=== PATIENT | female | born 1945 | race Caucasian/White ===

== ENCOUNTER 2024-08-09 11:55 | Outpatient (CLI) | payer MEDICARE, SELFPAY ==
--- NOTE | ~2024-08-09 | XR_ITS ---
XR sacrum coccyx min 2V Ordering provider: Belinda Knight, PA History: . Complications due to nervous system device . Comparison: None. FINDINGS: BONES: No acute fracture or dislocation. JOINTS: The sacroiliac joint spaces are normal. Degenerative changes of the spine. Right spinal stimu lator is noted. SOFT TISSUES: Normal. IMPRESSION: No acute osseous abnormality sacrum. Reviewed, dictated and finalized at location A.
--- OUTSIDE RECORDS SUMMARY | 2024-08-09 14:31 | XMS_ITS | Encounter Summary ---
Author Organization [facility] Address [address] [place] [address] Care Team Providers Care Vulnerability Assessment Analyst Name Role Phone Charity Eastman NP Primary Care Provider + Jose Alberto Gaines MD Unavailable [phone] Peña Garza MD Unavailable Boom Durant MD Unavailable [phone] Encounter Details Date Type Department Care Team (Late st Contact Info) Description 03/04/2024 MyC?t Message Enc [facility] Medical [facility] Family and Sports Medicine - [place] [address] [place] [address] Charity Eastman, DIRECTOR DESIGN [address] [place] [address] Discussion of test results on March 02, 2024 Social History Tobacco Use Types Packs/Day Years Used Date Smoking Tobacco: Former Cigarettes 0.5 50 0 05/26/1968 - 05/26/2018 Passive Smoke Exposure: Past Smokeless Tobacco: Never Comments:Former smoker Alcohol Use Standard Drinks/Week Comments Never 0 (1 standard drink = 0.6 oz pur e alcohol) AUDIT-C Answer Date Recorded Frequency of Alcohol Consumption Never 06/01/2018 Average Number of Drinks Not on file 019 Frequency of Binge Drinking Not on file 11/2018 Overall Financial Resource Strain (CARDIA) Answe r Date Recorded How hard is it for you to pa y for the very basics like food, housing, medical care, and heating? Not very hard 08/16/2022 PHQ-2 Answer Date Recorded Patient Health Questionnaire-2 Score 6 04/15/2023 Hunger Vital Sign Answer Date Recorded Within the past 12 months, y ou worried that your food would run out before you got the money to buy more. Never true 08/17/19 23 Within the past 12 months, t he food you bought just didn't last and you didn't have money to get more. Never true 08/16/2022 PRAPARE - Transportation Answer Date Re corded In the past 12 months, has l ack of transportation kept you from medical appointments or from getting medications? No 07/25 In the past 12 months, has l ack of transportation kept you from meetings, work, or from getting things needed for daily living? No 08/16/2022 Housing Stability Vital Sign Answer Martin e Recorded In the last 12 months, was t here a time when you were not able to pay the mortgage or rent on time? No 08/16/2022 In the last 12 months, how many places have you lived? 1 08/16/2022 In the last 12 months, was t here a time when you did not have a steady place to sleep or slept in a fpc (including now)? No 08/16/2022 Comments No Sex and Gender Information Value Date Recorded Sex Assigned at Female 10/09/2022 2:03 PM CDT Legal Sex Female 7:57 PM CDT Gender Identity Female 10/09/2022 2:03 PM CDT Sexual Orientation Straight 10/09/2022 2: 03 PM CDT documented as of this encounter Functional Status * RETIRED Are you deaf or do you have serious difficulty hearing Answer Date of Assessment Author Status No 10/24/2021 8:48 PM CDT Activ e * RETIRED Are you blind or do you have serious difficulty seeing, even when wearing glasses? Answer Date of Assessment Author Status No 10/24/2021 8:48 PM CDT Activ e * Do you have serious difficulty walking or climbing stairs? Answer Date of Assessment Author Status No 10/24/2021 8:48 PM CDT Leigh Wall RN Active * Do you have difficulty dressing or bathing? Answer Date of Assessment Author Status No 10/24/2021 8:48 PM CDT Leigh Wall, RN Active * Because of a physical, mental, or emotional condition, do you have difficulty doing errands alone such as visiting a doctor's office or shopping? Answer Date of Assessment Author Status No 10/24/2021 8:48 PM CDT Leigh Wall RN Active documented as of this encounter Mental Status * Because of a physical, mental, or emotional condition, do you have serious difficulty concentrating, remembering, or making decisions? Answer Entry Date Author Status No 10/24/2021 8:48 PM CDT Leigh Wall RN Active documented in this encounter Progress Notes * Charity Eastman NP - 03/04/2024 1:37 PM CDT Did she see my result note? Ice to neck and rest. documented in this encounter Plan of Treatment Upcoming Encounters Date Type Department Care Team (Late st Contact Info) Description 08/11/2024 10:45 AM CDT Office Visit [facility] Physical Therapy [address] [place] [address] Charity Eastman NP [address] [place] [address] Elizabeth Fernandez, PT 1 [place] [address] 08/12/2024 9:40 AM CDT Office Visit [facility] Medical Group Orthopedic & Sports Medicine - [place] [address] [place] [address] Dominik Lopez MD [address] [place] [address] 08/20/2024 12:15 PM CDT [facility] Visit [facility] [address] [address] Milton Rodriguez MD Three [facility] [address] [place], [place] [address] Marie Victor PA-C 3 [facility], [address] [place], [place] [address] documented as of this encounter Visit Diagnoses Not on filedocumented in this encounter Additional Health Concerns Infection Onset Date Last Indicated Resolved Time COVID-19 Rule Out 05/05/2024 05/05/2024 05/05/2024 11:[address] MECHANIC COVID-19 Rule Out 06/21/2024 06/21/2024 06/21/2024 5:[address] MECHANIC Assessment Noted Time PHQ-9 Depression Total Score: 25 023 12:49 PM CDT documented as of this encounter Care Teams Vulnerability Assessment Analyst Relationship Specialty Start Date End Date Charity Eastman NP [address] [place] [address] PCP - General Nurse Practitioner Family 08/16/21 Jose Alberto Gaines MD [address] [place] [address] ORTHOPAEDIC SURGERY 07/08/22 Peña Garza MD Three [facility]. [place] [address] [place] [address] Referring Physician VASCULAR SURGERY 07/04/22 Boom Durant MD [address] [facility] [place] [address] UROLOGY 08/23/22 documented as of this encounter
--- OUTSIDE RECORDS SUMMARY | 2024-08-09 14:31 | XMS_ITS | Clinical Summary ---
Author Organization [facility] Address [address] [place] [address] Care Team Providers Care Teacher Of The Hearing Impaired Name Role Phone Charity Eastman BULLDOZER MECHANIC-BREAKFAST COOK Primary Care Provider [phone] Source Comments [facility],non-owned Affiliates and Associated Physician Practices is amultiple site organization consisting of ambulatory clinics and hospital sitesin [place], [place], [place] and [place]. This disclosure is being madepursuant to the Care Everywhere program and may not contain all information available regarding this patient. Last updated 18.[facility] Allergies Active Allergy Reactions Criticality Noted Date Comments Bupropion Unknown 11/11/2017 hallucinations Fluoxetine Unknown 11/11/2017 vomiting Sertraline Unknown 11/11/2017 vomiting Varenicline Other 02/08/2014 depression Medications * Be aware that medications may not be up to date on this document. Alwaysverify current medications with the patient. Medication Sig Dispensed Refills Start Date End Date Status venlafaxine XR 24hr (EFFEXOR XR) 150 MG capsule Take 150 mg by mouth once daily 12/03/2018 Active dexmethylphenidate ER 24hr (FOCALIN XR) 30 MG capsule Take 30 mg by mouth once daily 10/15/2018 Active dexmethylphenidate (FOCALIN) 10 MG tablet 1 tablet by mouth in the afternoon (in addition to 30 mg XR in the AM) 10/08/2019 Active ALPRAZolam (XANAX) 0.5 MG tablet Take 0.5 mg by mouth 05/02/2016 Active pravastatin (PRAVACHOL) 20 MG tablet Take 20 mg by mouth at bedtime Active venlafaxine XR 24hr (EFFEXOR XR) 75 MG capsule Take 1 capsule by mouth once daily To take along with 150mg for a total of 225mg 30 capsule 4 11/23/2019 Active Active Problems Problem Noted Date Diagnosed Date Recurrent major depressive disorder 02/15/2020 Abnormal weight gain 05/17/2019 Overweight (BMI 25.0-29.9) 05/17/2019 Other hyperlipidemia 10/01/2018 Intractable migraine without aura and without status migrainosus 08/09/2016 Thyroid nodule 06/24/2016 ADHD (attention deficit hype ractivity disorder), combined type 06/03/2013 Anxiety 03/24/2013 Social History Tobacco Use Types Packs/Day Years Used Date Smoking Tobacco: Never Assessed Sex and Gender Information Value Date Recorded Sex Assigned at Not on file Gender Identity Not on file Sexual Orientation Not on file Last Filed Vital Signs Vital Sign Reading Time Taken Comments Blood Pressure 130/86 08/14/2017 11:32 AM CDT Pulse 88 08/14/2017 11:32 AM CDT Temperature - - Respiratory Rate - - Oxygen Saturation - - Inhaled Oxygen Concentration - - Weight 71.3 kg (157 lb 3.2 oz) 08/14/2017 11:32 AM CDT Height - - Body Mass Index - - Plan of Treatment Health Maintenance Due Date Last Done Comments BONE DENSITY TESTING 1945 HEPATITIS C SCREENING 11/30/1964 DTAP/TDAP/TD VACCINES (1 - Tdap) 1965 PNEUMOCOCCAL VACCINE 50+ (1 of 1 - PCV) 1996 ZOSTER VACCINE (1 of 2) 1996 Respiratory Syncytial Virus (RSV) Vaccine Pt: or over 60 yrs (1 - 1-dose 75+ series) 2021 COVID-19 VACCINE (3 - 2023-2 5 season) 2024 08/18/2020, 07/14/2020 INFLUENZA VACCINE (#1) 2024 DEPRESSION SCREENING 05/26/2024 MEDICARE AWV CALENDAR YEAR 2024 HEPATITIS B VACCINE Aged Out No longe r eligible based on patient's age to complete this topic HIB VACCINE Aged Out No longer eligi ble based on patient's age to complete this topic HPV VACCINE Aged Out No longer eligi ble based on patient's age to complete this topic MENINGOCOCCAL (Group B) VACCINE SHARED DECISION-MAKING Aged Out No longer eligible based on patient's age to complete this topic MENINGOCOCCAL GROUPS A/C/Y/W VACCINE Aged Out No longer eligible b ased on patient's age to complete this topic Care Teams Teacher Of The Hearing Impaired Relationship Specialty Start Date End Date Charity Eastman, BULLDOZER MECHANIC-BREAKFAST COOK [address] [address] PCP - General 05/28/22
--- OUTSIDE RECORDS SUMMARY | 2024-08-09 14:31 | XMS_ITS | Encounter Summary ---
Author Organization [facility] Address [address] [place] [address] Care Team Providers Care Weft Straightener Name Role Phone Charity Eastman NP Primary Care Provider + Jose Alberto Gaines MD Unavailable [phone] Peña Garza MD Unavailable Boom Durant MD Unavailable [phone] Encounter Details Date Type Department Care Team (Late st Contact Info) Description 07/25/2023 MyChart Message Enc [facility] Medical Group Family and Sports Medicine - [place] [address] [place] [address] Charity Eastman, BUSINESS TECHNOLOGY PROFESSOR [address] [place] [address] My test results Social History Tobacco Use Types Packs/Day Years [...] place to sleep or slept in a correction (including now)? No 08/16/2022 Comments No Sex [...] Progress Notes * Charity Eastman NP - 07/28/2023 8:34 AM CST Does not need to do anything if better NDING UROLOGIST documented in this encounter Plan of Treatment Upcoming Encounters Date Type Department Care Team (Late st Contact Info) Description 08/11/2024 10:45 AM CDT Office Visit [facility] Physical Therapy [address] [place] [address] Charity Eastman NP [address] [place] [address] Elizabeth Fernandez, PT 1 [place] [address] 08/12/2024 9:40 AM CDT Office Visit [facility] Medical Group Orthopedic & Sports Medicine - [place] [address] [place] [address] Dominik Lopez MD [address] [place] [address] 08/20/2024 12:15 PM CDT Office Visit [facility] n THREE [address] [address] Milton Rodriguez MD Three [facility] [address] [place] [id number] Marie Victor PA-C 3 [facility], [address] [place] [id number] documented as of this encounter Visit Diagnoses Not on filedocumented in this encounter Additional Health Concerns Infection Onset Date Last Indicated Resolved Time COVID-19 Rule Out 05/05/2024 05/05/2024 05/05/2024 11:08 PM ATTENDING UROLOGIST COVID-19 Rule Out 06/21/2024 06/21/2024 06/21/2024 5:59 PM ATTENDING UROLOGIST Assessment Noted Time PHQ-9 Depression Total Score: 25 023 12:49 PM CDT documented as of this encounter Care Teams Weft Straightener Relationship Specialty Start Date End Date Charity Eastman NP [address] [place] [address] PCP - General Nurse Practitioner Family 08/16/21 Jose Alberto Gaines MD [address] [place] [address] ORTHOPAEDIC SURGERY 07/08/22 Peña Garza MD [facility]. [place] [address] [place] [address] Referring Physician VASCULAR SURGERY 07/04/22 Boom Durant MD [address] [place] [address]. [place] [address] UROLOGY 08/23/22 documented as of this encounter
--- OUTSIDE RECORDS SUMMARY | 2024-08-09 14:31 | XMS_ITS | Patient Health Summary ---
Author Organization [facility] Address [address] [facility] [place] [address] Care Team Providers Care Multimedia Editor Name Role Phone Charity Eastman AUTOMOTIVE PAINTER-MEDICAL COLLECTIONS REPRESENTATIVE Primary Care Provider [phone] Note from [facility],non-owned Affiliates and Associated Physician Practices is amultiple site organization consisting of ambulatory clinics and hospital sitesin [place], [place], [place] and [place]. This disclosure is being madepursuant to the Care Everywhere program and may not contain all information available regarding this patient. Last updated 18.[facility] Allergies * Bupropion(Unknown) * Fluoxetine(Unknown) * Sertraline(Unknown) * Varenicline(Other) Medications * Be aware that medications may not be up to date on this document. Alwaysverify current medications with the patient. * venlafaxine XR 24hr (EFFEXOR XR) 150 MG capsule(Started 12/03/2018) Take 150 mg by mouth once daily * dexmethylphenidate ER 24hr (FOCALIN XR) 30 MG capsule(Started 10/15/2018) Take 30 mg by mouth once daily * dexmethylphenidate (FOCALIN) 10 MG tablet(Started 10/08/2019) 1 tablet by mouth in the afternoon (in addition to 30 mg XR in the AM) * ALPRAZolam (XANAX) 0.5 MG tablet(Started 05/02/2016) Take 0.5 mg by mouth * pravastatin (PRAVACHOL) 20 MG tablet Take 20 mg by mouth at bedtime * venlafaxine XR 24hr (EFFEXOR XR) 75 MG capsule(Started 11/23/2019) Take 1 capsule by mouth once daily To take along with 150mg for a total of 225mg 4 refills by 11/22/2020 Active Problems Problem Noted Date Diagnosed Date [...] - - Body Mass Index - - Procedures * DERMATOPATHOLOGY(Performed 10/28/2017) Results * DERMATOPATHOLOGY (10/28/2017 12:00 AM CDT) Case Report Dermatopathology Report Case: [id number] Authorizing Provider: Elana Echols MD Collected: 10/28/2017 12:00 AM Pathologist: Sandra Agarwal MD Received: 10/29/2017 06:18 AM Specimens: A) - Skin, left shoulder B) - Skin, back 8 5:44 PM CDT DERMATOPATHOLOGY LABORATORY Final Diagnosis Specimen A. 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 SKIN, back: PIGMENTED SEBORRHEIC KERATOSIS (L82.1) 8 5:44 PM CDT DERMATOPATHOLOGY LABORATORY Clinical History A-B: Irritated SK 8 5:44 PM CDT DERMATOPATHOLOGY LABORATORY Gross Description Specimen A: Received is one formalin filled container labeled with the patient's name and designated left shoulder. The specimen consists of a shave biopsy measuring 14g30v2 mm. Jar 0. Specimen B: Received is one formalin filled container labeled with the patient's name and designated back. The specimen consists of a shave biopsy measuring 6x4x1 mm. Jar 0. 5:44 PM CDT DERMATOPATHOLOGY LABORATORY Microscopic Description Specimen A. SKIN, left shoulder: Sections show an acanthotic lesion composed of relatively uniform keratinocytes. There is hyperkeratosis and pseudo horn cysts formation. Specimen B. SKIN, back: Sections show an acanthotic lesion composed of relatively uniform keratinocytes. There is hyperkeratosis and pseudo horn cysts. Pigment is present in the keratinocytes composing this tumor. 8 5:44 PM T DERMATOPATHOLOGY LABORATORY Disclaimer An external and internal positive and negative controls are appropriate for the histochemical, immunohistochemical and immunofluorescence stain(s) in this case (if any), except where stated explicitly. The performance characteristics of the stain(s) cited in this report were developed and its performance characteristic determined by the Dermatopathology Laboratory at [facility]. These tests need not be, and therefore are not, approved by the [place] Food and Drug Administration. The tests are used for clinical purposes. Billing Codes Specimen Charges Stain Charges 67937 08763 1 1 8 5:44 PM CDT DERMATOPATHOLOGY LABORATORY Embedded Images 8 5:44 PM CDT DERMATOPATHOLOGY LABORATORY Pathology/Cytology TISSUE SPECIMEN FROM SKIN / Unknown 10/28/2017 10/29/2017 6:18 AM CDT Miscellaneous samples (specimen) TISSUE SPECIMEN FROM SKIN / Unknown 10/28/2017 10/29/2017 6:18 AM CDT Elana Echosl MD LAB - PATHOLOGY/CYTO LOGY ORDERABLES DERMATOPATHOLOGY LABORATORY [facility] [place] [facility] - Department of Dermatology [address] [facility], [address]th [address] [place], [place] [address] [phone] Care Teams Multimedia Editor Relationship Specialty Start Date End Date Charity Eastman, AUTOMOTIVE PAINTER-MEDICAL COLLECTIONS REPRESENTATIVE [address] [place] [address] PCP - General 05/28/22
--- OUTSIDE RECORDS SUMMARY | 2024-08-09 14:31 | XMS_ITS | Clinical Summary ---
Author Organization [facility] Address [address] [place] [address] Care Team Providers Care Assistant Analyst Name Role Phone Charity Eastman NP Primary Care Provider [phone] Jose Alberto Gaines MD Unavailable [phone] Peña Garza MD Unavailable Boom Durant MD Unavailable [phone] Allergies Active Allergy Reactions Criticality Noted Date Comments Bupropion Unknown 11/11/2017 hallucinations Fluoxetine Unknown 11/11/2017 vomiting Oxycodone-Acetaminophen Other (see comment) Medium 06/2024 Confusion. Sertraline Unknown 11/11/2017 vomiting Medications Cyanocobalamin (B-12) 2000 MCG Tab Take 2 tablets by mouth. Active vitamin E 100 UNIT capsule Take 2 capsules (200 Units total) by mouth daily. Active omeprazole (PRILOSEC) 20 MG capsuleIndications :Projectile vomiting without nausea Take 1 capsule (20 mg total) by mouth 2 (two) times a day. 180 capsule 3 08/04/19 24 Active Vitamin D3 (CHOLECALCIFEROL) 50 mcg tablet Take 1 tablet (50 mcg total) by mouth daily. Active atenolol (TENORMIN) 50 MG tabletIndications: Primary hypertension Take 1 tablet (50 mg total) by mouth daily. 90 tablet 3 02/11/20 24 Active vitamin A 3 MG (90453 UT) capsule Take 1 capsule (3 mg total) by mouth daily. Active sucralfate (CARAFATE) 1 G tabletIndications: Projectile vomiting with nausea Take 1 tablet (1 g total) by mouth 4 (four) times daily before meals and nightly. 120 tablet 05/07/20 24 Active aspirin EC (ECOTRIN) 81 MG tablet Take 1 tablet (81 mg total) by mouth daily. 06/08/19 25 Active rosuvastatin (CRESTOR) 10 MG tablet Take 1 tablet (10 mg total) by mouth nightly at bedtime. 30 tablet 3 06/08/19 25 Active naloxone (NARCAN) 4 MG/0.1ML nasal spray 1 spray by Nasal route as needed for Opioid reversal. may repeat every 2 to 3 minutes in alternating nostrils until medical assistance becomes available 1 each 06/18/19 25 026 Active fish oil (OMEGA-3 FATTY ACID) 1000 MG Cap capsule Take 1 capsule (1,000 mg total) by mouth 2 (two) times daily. Active ALPRAZolam (XANAX) 0.5 MG tabletIndications: Anxiety TAKE 1 TABLET BY MOUTH TWICE DAILY NEEDED FOR SLEEP OR ANXIETY 60 tablet 07/09/19 25 Active venlafaxine XR (EFFEXOR-XR) 75 MG 24 hr capsuleIndications :Mild episode of recurrent major depressive disorder Take 1 tablet daily along with 150mg tablet for a total of 225mg 30 capsule 5 07/09/19 25 Active venlafaxine XR (EFFEXOR-XR) 150 MG 24 hr capsuleIndications :Mild episode of recurrent major depressive disorder Take 1 tablet daily along with 75mg tablet for a total of 225mg. 30 capsule 5 07/09/19 25 Active meclizine (ANTIVERT) 12.5 MG tabletIndications: Vertigo Take 1 tablet (12.5 mg total) by mouth 3 (three) times daily as needed. 90 tablet 1 07/12/19 25 Active ondansetron (ZOFRAN-ODT) 4 MG disintegrating tabletIndications: Nausea Take 1 tablet (4 mg total) by mouth every 8 (eight) hours as needed for Nausea. 20 tablet 1 07/12/19 25 Active amphetamine-dextro amphetamine (ADDERALL) 20 MG tabletIndications: ADHD (attention deficit hyperactivity disorder), combined type Take 1 tablet (20 mg total) by mouth 2 (two) times daily. 60 tablet 07/14/19 25 Active HYDROcodone-acetam inophen (NORCO) 5-325 MG tablet Take 1 tablet by mouth every 6 (six) hours as needed for Pain. 025 Discontin ued(Thera py completed ) dexmethylphenidate (FOCALIN) 10 MG Tab tabletIndications: ADHD (attention deficit hyperactivity disorder), combined type Take 1 tablet (10 mg total) by mouth 3 (three) times daily. 90 tablet 07/09/19 25 025 Discontin ued(Alter aura therapy) meclizine (ANTIVERT) 12.5 MG tablet 07/11/19 25 025 Discontin ued(Reord er) amphetamine-dextro amphetamine (ADDERALL) 20 MG tabletIndications: ADHD (attention deficit hyperactivity disorder), combined type Take 1 tablet (20 mg total) by mouth daily. 60 tablet 07/12/19 25 025 Discontin ued(Reord er) Active Problems Problem Noted Date Diagnosed Date Physical deconditioning 06/24/2024 AMS (altered mental status) 06/21/2024 Other closed intra-articular fracture of distal end of left radius, initial encounter 06/14/2024 Other closed fracture of dis nina end of left ulna, initial encounter 06/14/2024 Severe episode of recurrent major depressive disorder, without psychotic features ([facility]) 02/11/2024 Gastroparesis 07/10/2023 Vomiting without nausea, unspecified vomiting ty pe 07/10/2023 Gastroesophageal reflux dise ase, unspecified whether esophagitis present 07/10/2023 Pain in both lower extremities 07/04/2022 Decreased GFR 11/12/2021 Elevated blood pressure reading 11/12/2021 Pre-diabetes 11/12/2021 Weakness 10/24/2021 BMI 27.0-27.9,adult 05/17/2019 Other hyperlipidemia 10/01/2018 Chronic maxillary sinusitis 05/14/2017 Cervicalgia 08/09/2016 ADHD (attention deficit hype ractivity disorder), combined type 06/03/2013 Depression with anxiety 03/24/2013 Osteopenia 03/24/2013 Resolved Problems Problem Noted Date Diagnosed Date Resolved Date Care Management 11/06/2021 01/17/2023 Closed fracture of shaft of left humerus 04/26/2021 08/21/2021 Overview (08/21/2021): Added automatically from request for surgery [id number] Recurrent major depressive disorder 02/15/2020 08/21/2021 Abnormal weight gain 05/17/2019 022 Overweight with body mass in dex (BMI) 25.0-29.9 05/17/2019 08/21/2021 Lower urinary tract symptoms (LUTS) 06/01/2018 06/07/2024 Microscopic hematuria 06/01/20182023 Epicondylitis, lateral (tennis elbow) 01/30/2018 08/21/2021 Hematuria 01/30/2018 02/11/2024 Vomiting 01/30/2018 08/21/2021 Smoker 03/28/2017 08/21/2021 Right-sided muscle weakness 11/19/2016 08/21/2021 Intractable migraine without aura and without status migrainosus 08/09/2016 08/21/2021 Thyroid nodule 06/24/2016 08/21/2021 Attention deficit disorder o f adult with hyperactivity 12/25/2015 08/21/2021 Benign essential hypertension 11/24/2015 08/21/2021 Anxiety 03/24/2013 02/11/2024 Encounter for preventive health examination 03/24/2013 02/04/2020 Visit for screening mammogram 03/24/2013 02/04/2020 Encounters Date Type Department Care Team Description 08/03/2024 MyChart Message Enc [facility] [place] [address] [place] [address] Charity Eastman NP Check on symptoms 08/03/2024 MyChart Message Enc [facility] [place] [address] [place] [address] [facility] Provider PT Referral 08/03/2024 Telephone [facility] [place] [address] [place] [address] Dominik Lopez MD Referral 07/29/2024 8:26 AM BILLING AUDITOR - 07/29/2024 11:59 PM BILLING AUDITOR Hospital Encounter [facility] Non [place]vasive [place] [address] Milton Rodriguez MD Discharge Disposition: Home or Self Care (Routine Discharge) 07/29/2024 Travel 07/19/2024 11:20 AM BILLING AUDITOR Office Visit [facility] [address] [place] [phone] Charity Eastman NP Follow Up (F/U on dizziness. Lethargic- no energy. Nauseous and dizzy when she bends over. States her legs were blue on Friday when she took a shower. ); Referral (Physical Therapy- no strength in hips/legs. Occupational Therapy- states Dr. Lopez suggested this.) 07/19/2024 Travel 07/15/2024 9:00 AM BILLING AUDITOR Office Visit [facility] Orthopedic [address] [place] [address] Dominik Lopez MD Postop Followup (Left distal radius fx orif sx 06/18/24) 07/15/2024 Travel 07/12/2024 11:00 AM BILLING AUDITOR Office Visit [facility] [address] [place] [address] Charity Eastman NP Follow Up ([facility] f/u on confusion and LT. Wrist fracture. Was d/c to [facility] for rehab. Not sleeping well or eating much. ); Dizziness (Almost fell the other day bc she was so dizzy. ); Vomiting; Medication (Discuss a different ADHD medication. Also, vertigo and nausea meds. Taking Atenolol at night. ) 07/12/2024 Travel 07/09/2024 Telephone [facility] [address] [place] [address] Charity Eastman PUMP MACHINE OPERATOR Refill Request 07/09/2024 Orders Only [facility] [address] [place] [address] Dominik Lopez MD 07/07/2024 Hospital Follow-up Call [facility] [address] [place] [address] Hilda Sawyer LPN Follow Up Call ([facility] 06/24-06/28/24) 07/01/2024 9:00 AM BILLING AUDITOR Office Visit [facility] Medicine [facility] [address] [place] [address] Dominik Lopez MD Postop Followup ( Left distal radius ulnar fx orif sx 06/18/24) 07/01/2024 Travel 06/30/2024 Telephone [facility] Med/Surg [address] [place] [address] Cee Rodas RN Follow Up Call (Attempted to call pt back regarding medications that were left at the hospital. No answer. LM) 06/29/2024 Orders Only [facility] Medicine [facility] [address] [place] [address] Dominik Lopez MD 06/24/2024 2:52 PM BILLING AUDITOR - 06/28/2024 4:10 PM BILLING AUDITOR Hospital Encounter [facility] Med/Surg [address] [place] [address] Eddie Ibarra MD Discharge Disposition: Home or Self Care (Routine Discharge) 06/24/2024 Travel 06/22/2024 Telephone [facility] [address] [place] [address] Michelle Alejandre, pickers material handlers (Swing bed referral to [facility] from [facility]/Swing bed referral to [facility] from [facility] on ) 06/21/2024 4:45 PM BILLING AUDITOR - 06/24/2024 1:55 PM BILLING AUDITOR Emergency [facility] [place] [address] Celeste Villalobos MD Elayyan, MD Jayne Arshad Dominique C, MD Lamonica, Kandace C, MD Shortness Of Breath Discharge Disposition: Swing Bed 06/21/2024 3:40 PM BILLING AUDITOR Office Visit [facility] Sports [facility] [address] [place] [address] Charity Eastman NP Dizziness (SOB at times. Believes it could be from Oxy that she is taking from her wrist fracture. Has rods and pins in it- having a f/u with surgeon on 06/24/24. Hasn't been sleeping. Last Percocet was Friday evening at 11pm. Effect from anesthesia ? After sleep/naps she wakes up breathing abnormal and scared. Maeve is with her today- a longtime friend. Pt. States she has only had 3 puffs of a cigarette. Friday she had a total of 3 percocets all together. They have destroyed the rest of them. Has not been taki); Other (Ng Hydrocodone. Discuss medications. She had atenolol, asa 81mg, Prilosec, effexor, xanax and zofran today. ) 06/21/2024 Travel 06/21/2024 Telephone [facility] Sports [facility] [place] [address] [place] [address] Charity Eastman PUMP MACHINE OPERATOR Advice 06/19/2024 10:40 AM BILLING AUDITOR - 06/19/2024 11:40 AM BILLING AUDITOR Emergency [facility] [place] [address] Aranza Dean PA Medical Screening; Surgery Follow Up Discharge Disposition: Home or Self Care (Routine Discharge) 06/19/2024 Travel 06/18/2024 1:40 PM BILLING AUDITOR - 06/18/2024 3:35 PM BILLING AUDITOR Surgery [facility] [place] [address] Dominik Lopez MD left distal radius fracture open reduction internal fixation with possible open reduction internal fixation of ulnar fracture and possible placement of external fixation 06/18/2024 12:57 PM BILLING AUDITOR Anesthesia Event [facility] [place] [address] Thee Lopez DO Jarvis, Brittany L, TORCH STRAIGHTENER 06/18/2024 9:20 AM BILLING AUDITOR - 06/18/2024 11:59 PM BILLING AUDITOR Hospital Encounter [facility] [place] [address] Dominik Lopez MD Discharge Disposition: Home or Self Care (Routine Discharge) 06/18/2024 9:15 AM BILLING AUDITOR - 06/18/2024 4:30 PM BILLING AUDITOR Hospital Encounter [facility] [place] [address] Dominik Lopez MD Discharge Disposition: Home or Self Care (Routine Discharge) 06/18/2024 Travel 06/17/2024 Telephone [facility] Care [address] [place] [id number] Charity Eastman, PUMP MACHINE OPERATOR Advise 06/15/2024 Telephone [facility] on THREE [address] [address] Milton Rodriguez MD Surgical Clearance 06/14/2024 9:20 AM BILLING AUDITOR Office Visit [facility] [address] [place] [address] Dominik Lopez MD New Patient (Left distal radius fx) 06/14/2024 Prep for Procedure [facility] [address] [place] [address] Dominik Lopez MD 06/14/2024 Telephone [facility] [place] [address] [place] [address] Charity Eastman, PUMP MACHINE OPERATOR Other 06/14/2024 Travel 06/11/2024 Telephone [facility] [address] [facility], [address] [place] [phone] Favian Quiñones MD Schedule Test 06/11/2024 Telephone [facility] [address] [place] [phone] [phone] Charity Eastman, PUMP MACHINE OPERATOR Referral 06/10/2024 Telephone [facility] [address] [place] [address] Dominik Lopez MD Appointment Request 06/09/2024 5:50 PM BILLING AUDITOR - 06/09/2024 10:16 PM BILLING AUDITOR Emergency [facility] [place] [address] Aranza Dean PA Fall Discharge Disposition: Home or Self Care (Routine Discharge) 06/09/2024 Travel 06/08/2024 11:15 AM BILLING AUDITOR Office Visit [facility] on [address] [address] Milton Rodriguez MD Consult (New patient consult ) 06/08/2024 Travel 06/03/2024 Telephone [facility] [address] [place] [address] [phone] Charity Eastman PUMP MACHINE OPERATOR Medication Information 06/03/2024 Telephone [facility] [address] [place] [address] Charity Eastman NP Medication Problem from Last 3 Months Immunizations Name Administration Dates Next Due Fluzone High Dose (IIV, triv alent, 0.5mL) 03/08/2024 Fluzone High Dose - >Age 65 (Prefilled Syringe) 03/28/2023,06/28/2022(Deferred: Patient Refused) PFIZER COVID-19 (ORIGINAL FORMULATION, PURPLE CAP) mRNA, LNP-S, PF, 30 MCG/0.3 ML DOSE 08/18/2020,07/14/2020 Pneumococcal (Prevnar 13) 01/07/2021,05/12/2019 Pneumococcal (Prevnar 20) 08/15/2022 Shingrix 01/07/2021 Family History Medical History Relation Comments Arthritis Daughter Adopted at , because she might be the natural child of my ex Depression Father Cancer Mother Smoker, bronchia l Depression Sister Compulsive disor jossue Mental Health Sister Depression compu lsive disorder Stent Cardiac Sister Asthma Son Bith defect - Ex strophy of the urinary bladdet Defects Son Temitope White Relation Status Comments Daughter Father Mother Sister Alive Son Social History Tobacco Use Types Packs/Day Years Used Date Smoking Tobacco: Some Days Cigarettes 0.5 50 Started: 05/26/1968; Last attempted to quit: 05/26/2018 Passive Smoke Exposure: Past Smokeless Tobacco: Never Tobacco Cessation:Ready to Q uit: No; Counseling Given: Yes Comments: Alcohol Use Standard Drinks/Week Comments Never 0 (1 standard drink = 0.6 oz pur e alcohol) [facility] [employer] Answer Date Recorded In the past 12 months has e [employer], gas, oil, or water valuescope threatened to shut off services in your home? No 06/22/2024 Humiliation, Afraid, Rape, and Kick questionnair e Answer Date Recorded Within the last year, have y ou been afraid of your partner or ex-partner? No 06/22/2024 Within the last year, have y ou been humiliated or emotionally abused in other ways by your partner or ex-partner? No Within the last year, have y ou been kicked, hit, slapped, or otherwise physically hurt by your partner or ex-partner? No 06/22/2024 Within the last year, have y ou been raped or forced to have any kind of sexual activity by your partner or ex-partner? No 06/22/2024 AUDIT-C Answer Date Recorded Frequency of Alcohol Consumption Never 06/01/2018 Average Number of Drinks Not on file 019 Frequency of Binge Drinking Not on file 11/2018 Overall Financial Resource Strain (CARDIA) Answe r Date Recorded How hard is it for you to pa y for the very basics like food, housing, medical care, and heating? Not hard at all 06/22/2024 PHQ-2 Answer Date Recorded Patient Health Questionnaire-2 Score 4 06/14/2024 Hunger Vital Sign Answer Date Recorded Within the past 12 months, y ou worried that your food would run out before you got the money to buy more. Never true 06/22/19 25 Within the past 12 months, t he food you bought just didn't last and you didn't have money to get more. Never true 06/22/2024 PRAPARE - Transportation Answer Date Re corded In the past 12 months, has l ack of transportation kept you from medical appointments or from getting medications? No 05/27 In the past 12 months, has l ack of transportation kept you from meetings, work, or from getting things needed for daily living? No 06/22/2024 Housing Stability Vital Sign Answer Martin e [...] place to sleep or slept in a halfway (including now)? No 08/16/2022 Housing Stability Vital Sign Answer Martin e Recorded In the last 12 months, was t here a time when you were not able to pay the mortgage or rent on time? No 06/22/2024 In the past 12 months, how m any times have you moved where you were living? 0 06/22/2024 At any time in the past 12 m [facility], were you homeless or living in a halfway (including now)? No 06/22/2024 Comments No Sex and Gender Information Value Date Recorded Sex Assigned at Female 10/09/2022 2:03 PM CDT Legal Sex Female 7:57 PM CDT Gender Identity Female 10/09/2022 2:03 PM CDT Sexual Orientation Straight 10/09/2022 2: 03 PM CDT Last Filed Vital Signs Vital Sign Reading Time Taken Comments Blood Pressure 135/75 07/19/2024 1:21 PM BILLING AUDITOR Pulse 69 07/19/2024 11:34 AM BILLING AUDITOR Temperature 36.7 C (98 F) 07/19/2024 11:34 AM BILLING AUDITOR Respiratory Rate 18 07/19/2024 11:34 AM BILLING AUDITOR Oxygen Saturation 98% 07/19/2024 11:34 AM BILLING AUDITOR Inhaled Oxygen Concentration - - Weight 70.4 kg (155 lb 3.2 oz) 07/19/2024 11:34 AM BILLING AUDITOR Height 160 cm (5' 3 ) 07/19/2024 11:34 AM BILLING AUDITOR Body Mass Index 27.49 07/19/2024 11:34 AM BILLING AUDITOR Plan of Treatment Upcoming Encounters Date Type Department Care Team (Late st Contact Info) Description 08/11/2024 10:45 AM CDT Office Visit [facility] Physical Therapy [address] [place] [address] Charity Eastman, PUMP MACHINE OPERATOR [address] [place] [address] Elizabeth Fernandez, PT [address] [place] [address] 08/12/2024 9:40 AM CDT Office Visit [facility] Orth[facility] - [place] [address] [place] [address] Dominik oLpez MD [address] [place] [address] 08/20/2024 12:15 PM CDT Office Visit [facility] [place] [address] [place], [place] [address] Milton Rodriguez MD Three [facility], [address] [place], [place] [address] Marie Victor PA-C [address] [facility], [address] [place], [place] [id number] Health Maintenance Due Date Last Done Comments Kidney Health Evaluation 1945 Diabetes: Retinopathy Eye Exam 1964 DTaP, Tdap and Td Vaccines (1 - Tdap) 1965 Zoster Vaccines (2 of 2) 03/04/2021 01/07/2021 RSV Immunization or 60+ Years (1 - 1-dose 75+ series) 2021 COVID-19 Vaccine (3 - season) 2024 08/18/2020, 07/14/2020 Hemoglobin A1C 12/20/2024 06/22/2024, 03/27, 08/21/2022, Additional history exists Lung Cancer Screening 03/08/2025 03/08/2024 Annual Medicare Wellness Visit 03/15/2025 Postponed from 12/06/2011 (Patient Refused) Lipid Panel 06/22/2025 06/22/2024, 07/25, 10/25/2021, Additional history exists Colorectal Cancer Screening Colonoscopy (10 Years) Discontinued 11/16/2018 Hepatitis C Completed 08/21/2021 Pneumococcal Vaccine: 65+ Years Completed 08/15/2022, 01/07/2021, 05/12/2019 Dexa Scan (General) Completed 03/02/2024, 02/06/2021, 02/06/2021, Additional history exists Influenza Adult Completed 03/08/2024, 03/28/2023 PHQ-2 (Physician Shubuta) Completed 06/14/2024 Meningococcal B Vaccine Aged Out No l onger eligible based on patient's age to complete this topic Meningococcal Vaccine Aged Out No albaro allyn eligible based on patient's age to complete this topic RSV Immunizations Under 20 Months Aged Out No longer eligible based on patient's age to complete this topic Goals Goal Patient Goal Type Associated Problems Recent Progress Patient-Stated? Author Health - patient able to perform ADLs independently Lifestyle No Aretha Olmstead, RN Patient will return to prior living situation and remain independent in ADLs upon discharge from hospital Lifestyle No Sameera Farnsworth, RN Medical Devices Implanted Type Area Microsoft Net Developer Device Identifier Shelf Expiration Date Model / Serial / Lot Graft Bone Allosource Canc Crushed Fd 15ml - [id number] Implanted:Qty: 1 on 06/18/2024 by Dominik Lopez MD at [facility] Bone Left: Wrist [employer]OSOURCE [id number] 10/30/2027 [id number] / [id number] / Stimulator Lead Implant-08/28/19 Implanted:Qty: 1 on 08/28/2023 Lead Implant Sacrum [employer] [id number] / [id number] / Plate Synthes 2.4 Va-Lcp Vlr Dist Radius 6h Hd/3h Shaft Left - [id number] Implanted:Qty: 1 on 06/18/2024 by Dominik Lopez MD at [facility] Plate Left: Wrist SYNTHES 02.111.631 / / Screw Synthes 2.4 Locking Stardrive 18mm - [id number] Implanted:Qty: 4 on 06/18/2024 by Dominik Lopez MD at [facility] Screw Left: Wrist SYNTHES 02.210.118 / / Screw Synthes 2.4 Locking Stardrive 12mm - [id number] Implanted:Qty: 2 on 06/18/2024 by Dominik Lopez MD at [facility] Screw Left: Wrist SYNTHES 02.210.112 / / Screw Synthes 2.4 Locking Stardrive 22mm - [id number] Implanted:Qty: 1 on 06/18/2024 by Dominik Lopez MD at [facility] Screw Left: Wrist SYNTHES .210.122 / / Screw Synthes 2.4 Cortical Self Tap 12mm - [id number] Implanted:Qty: 1 on 06/18/2024 by Dominik Lopez MD at [facility] Screw Left: Wrist IBUonline ED 201.762 / / Stimulator Implant-08/28/19 Implanted:Qty: 1 on 08/28/2023 Stimulator Implant Pelvis [employer] [id number] / [id number] / Description:MR CONDITIONAL A T 1.5 T OR 3 T, NEED REMOTE TO VERIFY FULL BODY ELIGIBLE AND TURN OFF STIMULATION, FOLLOW SCAN CONDITIONS FOR SCANNER AND BODY PART BEING SCANNED (IN MRI TECHNICAL MANUAL) Wire Kaz .062 X 9 - [id number] Implanted:Qty: 1 on 06/18/2024 by Dominik Lopez MD at [facility] Wire Left: Wrist [employer] 1600-962NS / / Wire Fixation Kaz Stainless Steel L9 In Od.045 In 2 Tr - [id number] Implanted:Qty: 1 on 06/18/2024 by Dominik Lopez MD at [facility] Wire Left: Wrist [employer] 1600-945NS / / Wire Fixation Kaz Stainless Steel L9 In Od.054 In 2 Tr - [id number] Implanted:Qty: 1 on 06/18/2024 by Dominik Lopez MD at [facility] Wire Left: Wrist [employer] 1600-954NS / / Procedures Procedure Name Priority Date/Time Associated Diagnosis Comments NM EXER NUC STRESS TEST 1 DAY W TRACING Routine 07/29/2024 2:44 PM BILLING AUDITOR CAD in [place] artery Chest pain, unspecified USE ECHOCARDIOGRAM W CON Routine 07/29/2024 9:21 AM BILLING AUDITOR CAD in [place] artery Chest pain, unspecified CARDIOLOGY STRESS TEST ONLY, EXERCISE Routine 07/29/2024 8:27 AM BILLING AUDITOR CAD in [place] artery Chest pain, unspecified OXR LT WRIST M3V Routine 07/15/2024 9:21 AM BILLING AUDITOR Other closed intra-articular fracture of distal end of left radius, initial encounter OXR LT WRIST M3V Routine 07/01/2024 9:10 AM BILLING AUDITOR Other closed intra-articular fracture of distal end of left radius, initial encounter CBC W/DIFF AUTOMATED Routine 06/25/2024 9:24 AM BILLING AUDITOR BASIC METABOLIC PANEL Routine 06/25/2024 9:24 AM BILLING AUDITOR CBC W/DIFF AUTOMATED Routine 06/24/2024 5:16 AM BILLING AUDITOR BASIC METABOLIC PANEL Routine 06/24/2024 5:16 AM BILLING AUDITOR XR WRIST LT 2V Today 06/23/2024 1:37 PM BILLING AUDITOR BASIC METABOLIC PANEL Routine 06/23/2024 6:39 AM BILLING AUDITOR CBC W/DIFF AUTOMATED Routine 06/23/2024 6:39 AM BILLING AUDITOR THYROXINE, FREE (FT4) Routine 06/22/2024 2:52 PM BILLING AUDITOR EEG ROUTINE STAT 06/22/2024 1:56 PM BILLING AUDITOR HC URINALYSIS AUTO W/O MICRO STAT 06/22/2024 11:55 AM BILLING AUDITOR LIPID PANEL Routine 06/22/2024 6:46 AM BILLING AUDITOR BASIC METABOLIC PANEL Routine 06/22/2024 6:46 AM BILLING AUDITOR THYROID STIM HORMONE TSH Routine 06/22/2024 6:46 AM BILLING AUDITOR HEMOGLOBIN, GLYCOSYLATED Routine 06/22/2024 6:46 AM BILLING AUDITOR MAGNESIUM Routine 06/22/2024 6:46 AM BILLING AUDITOR PROTHROMBIN TIME, VENOUS Routine 06/22/2024 6:46 AM BILLING AUDITOR CBC W/DIFF AUTOMATED Routine 06/22/2024 6:46 AM BILLING AUDITOR ECG 12-LEAD STAT 06/22/2024 2:[address] HEAD WO CON STAT 06/21/2024 7:19 PM BILLING AUDITOR ECG 12-LEAD Routine 06/21/2024 6:15 PM BILLING AUDITOR XR CHEST PORTABLE STAT 06/21/2024 5:5 7 PM BILLING AUDITOR INFLUENZA A & B STAT 06/21/2024 5:36 PM BILLING AUDITOR CORONAVIRUS (COVID 19) STAT 06/21/2024 5:36 PM BILLING AUDITOR TROPONIN, QUANT STAT 06/21/2024 5:30 PM BILLING AUDITOR COMPREHENSIVE METABOLIC PANEL STAT 06/21/2024 5:30 PM BILLING AUDITOR CBC W/DIFF AUTOMATED STAT 06/21/2024 5:30 PM BILLING AUDITOR SURG XR WRIST LT 2V Routine 06/18/2024 3 :14 PM BILLING AUDITOR OPTX DSTL RADL I-ARTIC FX/EPIPHYSL SEP 3+ FRAG 06/18/2024 12:57 PM BILLING AUDITOR Other closed intra-articular fracture of distal end of left radius, initial encounter Other closed fracture of distal end of left ulna, initial encounter Case Notes SCHED BY JANEE 06/14/2024 LCS PHONE ASSESS FL AN PERIPHERAL BLOCK SINGLE-SHOT Routine 06/18/2024 11:56 AM BILLING AUDITOR US GD NDL PLACEMENT ANES Today 06/18/2024 9:20 AM BILLING AUDITOR ORTHOPEDIC INJURY TREATMENT Routine 06/10/2024 12:10 AM BILLING AUDITOR XR WRIST LT 2V STAT 06/09/2024 8:42 PM BILLING AUDITOR PROCEDURAL SEDATION Routine 06/09/2024 7 :[address] CERV SPINE WO CON STAT 06/09/2024 7:[address] HEAD WO CON STAT 06/09/2024 7:18 PM BILLING AUDITOR XR KNEE RT 2V STAT 06/09/2024 5:54 PM BILLING AUDITOR XR HAND LT 3V STAT 06/09/2024 5:52 PM BILLING AUDITOR XR WRIST LT MIN 3V STAT 06/09/2024 5: [address] LUNG SCREENING Routine 03/08/2024 5:3 8 PM CDT Nicotine dependence, cigarettes, in remission BONE DENSITY/DEXA Routine 03/02/2024 2:2 1 PM CDT Menopause HEPATITIS C ANTIBODY Routine 08/21/2021 3:45 PM CDT Need for hepatitis C screening test COLONOSCOPY Routine 11/16/2018 12:10 PM CDT from Last 3 Months or Most Recently Relevant to Health Maintenance Results * NM EXER NUC STRESS TEST 1DAY (07/29/2024 2:44 PM BILLING AUDITOR) Anatomical Region Laterality Modality Cardiac Nuclear Medicine 07/29/2024 9:11 AM BILLING AUDITOR Narrative 07/30/2024 2:16 PM BILLING AUDITOR Myocardial Perfusion Imaging Pat.Name: LYDIA WHITE Pat.ID: [id number] .Date: 07/29/2024 Refer.MD: Jaren Exam Time: 9:11:00 AM Study Type:MANUEL NC HT MUSCLE IMAGE SPECT MULTI Height: 63 in Weight: 155 lb BSA: 1.74 m2 Age: 7 1945,78Y Sex: F Sonogrphr: FRANK Estrella Pat. Stat.:Outpatient Reason for Study:Chest pain, Evaluation of known CAD, Fatigue History / Clinical:Smoker, COPD, Hypertension, GERD, Dyslipidemia Procedures: Nuclear Stress Test with Lexiscan Race: W Surgery: None ++++++++++++++++++++++++++++++++++++ SUMMARY: ++++++++++++++++++++++++++++++++++++ Stress conclusion: 1. Clinically negative. 2. Electrocardiographically negative stress test for ischemia. 3. Scintigraphic images to follow. Perfusion conclusion: 1. Excellent study quality. No motion correction was applied to images. No attenuation is noted. Prone imaging was performed. 2. Normal myocardial perfusion SPECT imaging. 3. Normal wall motion with an ejection fraction of 77%. 4. Stress test with myocardial perfusion imaging shows overall low risk for a cardiac event. ++++++++++++++++++++++++++++++++++++ FINDINGS: ++++++++++++++++++++++++++++++++++++ Protocol: Lexiscan 0.4mg was given as a rapid injection IV over a period of 10 seconds with the radiopharmaceutical injected at 20 seconds. The images were processed using the standard SPECT technique. A gated study was performed on the stress images. Impression: SPECT images demonstrate normal perfusion of normal intensity. Heart Size: The left ventricle is normal. LV Wall Motion: The LVEF is calculated to be 77%. Gated SPECT images reveal normal wall motion. Transient Ischemic Dilatation: The TID is 1.00. There is no evidence of Transient Ischemic Dilatation. ++++++++++++++++++++++++++++++++++++ STRESS: ++++++++++++++++++++++++++++++++++++ Baseline Vital Signs: ECG: Normal sinus rhythm HR: 60 bmp Rest BP: 134/53 Regadenoson Peak Dose: 0.4 mg Stress Test Results: Max HR: 77 bmp Target HR: 143 bmp % Target: 54 % Max BP: 148/56 Max RPP: [id number] O2 sat: 100 % Symptoms and Complications: Terminated: Protocol completed Symptoms: Flushing Complications: None Stress ECG Interp: No significant changes <Electronic Signature> 07/30/2024 02:16 PM Milton Rodriguez M.D. Procedure Note Milton Rodriguez MD - 07/30/2024 Myocardial Perfusion Imaging Pat.Name: LYDIA WHITE Pat.ID: [id number] .Date: 07/29/2024 Refer.: Jaren Exam Time: 9:11:00 AM Study Type:MANUEL CARBAJAL HT MUSCLE IMAGE SPECT MULTI Height: 63 in Weight: 155 lb BSA: 1.74 m2 Age: 7 1945,78Y Sex: F Sonogrphr: DEYANIRA EstrellaMT Pat. Stat.:Outpatient Reason for Study:Chest pain, Evaluation of known CAD, Fatigue History / Clinical:Smoker, COPD, Hypertension, GERD, Dyslipidemia Procedures: Nuclear Stress Test with Lexiscan Race: W Surgery: None ++++++++++++++++++++++++++++++++++++ SUMMARY: ++++++++++++++++++++++++++++++++++++ Stress conclusion: 1. Clinically negative. 2. Electrocardiographically negative stress test for ischemia. 3. Scintigraphic images to follow. Perfusion conclusion: 1. Excellent study quality. No motion correction was applied to images. No attenuation is noted. Prone imaging was performed. 2. Normal myocardial perfusion SPECT imaging. 3. Normal wall motion with an ejection fraction of 77%. 4. Stress test with myocardial perfusion imaging shows overall low risk for a cardiac event. ++++++++++++++++++++++++++++++++++++ FINDINGS: ++++++++++++++++++++++++++++++++++++ Protocol: Lexiscan 0.4mg was given as a rapid injection IV over a period of 10 seconds with the radiopharmaceutical injected at 20 seconds. The images were processed using the standard SPECT technique. A gated study was performed on the stress images. Impression: SPECT images demonstrate normal perfusion of normal intensity. Heart Size: The left ventricle is normal. LV Wall Motion: The LVEF is calculated to be 77%. Gated SPECT images reveal normal wall motion. Transient Ischemic Dilatation: The TID is 1.00. There is no evidence of Transient Ischemic Dilatation. ++++++++++++++++++++++++++++++++++++ STRESS: ++++++++++++++++++++++++++++++++++++ Baseline Vital Signs: ECG: Normal sinus rhythm HR: 60 bmp Rest BP: 134/53 Regadenoson Peak Dose: 0.4 mg Stress Test Results: Max HR: 77 bmp Target HR: 143 bmp % Target: 54 % Max BP: 148/56 Max RPP: [id number] O2 sat: 100 % Symptoms and Complications: Terminated: Protocol completed Symptoms: Flushing Complications: None Stress ECG Interp: No significant changes <Electronic Signature> 07/30/2024 02:16 PM Milton Rodriguez M.D. Milton Rodriguez MD NUC MED Final Res ult * USE ECHOCARDIOGRAM W CON (07/29/2024 9:21 AM BILLING AUDITOR) Anatomical Region Laterality Modality NA Echocardiogram 07/29/2024 8:44 AM BILLING AUDITOR Narrative 08/02/2024 9:13 PM CDT Echocardiography Report Pat.Name: LYDIA WHITE Pat.ID: [id number] .Date: 07/29/2024 Refer.MD: [id number] CARLO Coyne EWDPROV EWDPROV Exam Time: 8:44:00 AM Study Type:ECHO WITH CARDIAC DOPPLER COMP Height: 63 in Weight: 155 lb BSA: 1.74 m2 Age: 7 1945,78Y Sex: F BP: 140/60 HR: 65 bpm Sonogrphr: Allison Padilla [facility] Pat. Stat.:Outpatient Reason for Study:CP History / Clinical:Evaluate for PVD. PMH; HLP, X-Tob. No priors. Procedures: 2D, M-mode, Doppler, Color Flow, Definity was used to enhance endocardial definition. The study quality is technically adequate. Race: W ++++++++++++++++++++++++++++++++++++ SUMMARY: ++++++++++++++++++++++++++++++++++++ The left ventricular size is normal. The left ventricular systolic function is normal. Estimated left ventricular ejection fraction is 60-65%. Mild concentric left ventricular hypertrophy. Left ventricular diastolic function is abnormal (grade 1 - impaired relaxation). The right ventricle size is normal. The right ventricular function is normal. Mild mitral regurgitation. Mild tricuspid regurgitation. ++++++++++++++++++++++++++++++++++++ FINDINGS: ++++++++++++++++++++++++++++++++++++ LV: The left ventricular size is normal. The left ventricular systolic function is normal. Estimated left ventricular ejection fraction is 60-65%. Mild concentric left ventricular hypertrophy. Left ventricular diastolic function is abnormal (grade 1 - impaired relaxation). WM: Wall motion appears normal in all segments. RV: The right ventricle size is normal. The right ventricular function is normal. IVS: No evidence of ventricular septal defect. LA: Left atrial size is normal. RA: The right atrial size is normal. IAS: Atrial septum appears intact. GALDINO: No evidence of pericardial effusion. AO: Normal aortic root. SVn: Inferior vena cava is normal. Inferior vena cava shows >50% collapse with respiration consistent with normal right atrial pressure. AV: The aortic valve is trileaflet. No evidence of aortic valve stenosis. No evidence of aortic valve regurgitation. MV: Mild mitral regurgitation. No evidence of mitral stenosis. PV: Trace pulmonic regurgitation. No evidence of pulmonic valve stenosis. TV: Mild tricuspid regurgitation. Right ventricular systolic pressure is <30 mmHg. No evidence of tricuspid valve stenosis. ++++++++++++++++++++++++++++++++++++ MEASUREMENTS: ++++++++++++++++++++++++++++++++++++ DOPPLER LVOT LVOTpkPG 4 mmHg LVOTmnPG 2 mmHg LVOTpkVel 106 cm/s (70-110) LVOT SV 69 ml LVOT TVI 21.9 cm Right Atrium RA Press 3 mmHg Royal's Disk 20 Pulmonary Veins PVnpkVeld 55 cm/s PVnVs/Vd 1.6 PVnpkVels 87 cm/s AV Forward Flow AV TVI 27.7 cm AV pkPG 6 mmHg AV pkVel 121 cm/s (100-170) Area (TVI) 2.48 cm2 (3-5)* AV mnPG 3 mmHg Area (Shlomo) 2.75 cm2 (3-5)* MV Forward Flow MV DeTm 264 msec MV pkE 67.3 cm/s (60-130) MV E/A 0.8 MV pkA 80.9 cm/s PV Forward Flow PV pkVel 103 cm/s (60-90)* PV AC 119 msec PV pkPG 4 mmHg TV Regurg Flow TV pkPG 25 mmHg TV pkVel 252 cm/s (30-70)* Right Ventricle RVsys P 28 mmHg Right Ventricle 11.7 cm/s Lat E' Lat e 9.03 cm/s Lat E/E' Lat E/e 7.5 Med E' Med e 6.09 cm/s Med E/E' Med E/e 11.1 Aortic Valve Aortic Valve Ar 1.43 Aortic Valve Ve 0.88 PV Antegrade Flow Acceleration Sl 712 cm/s2 2D Left Ventricle LVIDd 4.5 cm (3.6-5.2)+ LV ESV 29.9 ml LVIDs 2.8 cm (2.3-3.9)+ LV ESV 38.5 ml LngAxd 7.92 cm LVESV BP 34.2 ml LngAxd 7.62 cm LV EF 68.4 % LV EDV 94.6 ml LV EF 57 % LV EDV 89.6 ml LV EF BP 63.5 % LVEDV BP 93.8 ml LV SV 64.8 ml LngAxs 6.54 cm LV SV 51.1 ml LngAxs 6.42 cm LV SV BP 59.6 ml LVPW LVPWd 1 cm Ventricular Septum IVSd 1.1 cm Left Atrium LA VOLBP 43.1 ml Aorta Ao Rtd 2.6 cm (zsc -0.2) LVOT LVOT 2 cm LVOTArea 3.14 cm2 Ratios IVS LA Biplane LAVol I BP 24.8 ml/m2 RA Single Plane Right Atrium MO 12.6 mm Right Atrium Sy 26.7 ml Right Atrium Sy 41 mm Right Atrium Sy 15.3 ml/m2 Right Atrium Sy 11.7 cm2 Right Ventricle Right Ventricle 31 mm Right Ventricle 20 mm Major Florence 55 mm MMODE TA Tricuspid Annul 19.3 mm <Electronic Signature> 08/02/2024 09:13 PM Milton Rodriguez M.D. Procedure Note Milton Rodriguez MD - 08/02/2024 Echocardiography Report Pat.Name: LYDIA WHITE Pat.ID: [id number] .Date: 07/29/2024 Refer.: [id number] CARLO Coyne EWDPROV EWDPROV Exam Time: 8:44:00 AM Study Type:ECHO WITH CARDIAC DOPPLER COMP Height: 63 in Weight: 155 lb BSA: 1.74 m2 Age: 7 1945,78Y Sex: F BP: 140/60 HR: 65 bpm Sonogrphr: Allison Padilla [facility] Pat. Stat.:Outpatient Reason for Study:CP History / Clinical:Evaluate for PVD. PMH; HLP, X-Tob. No priors. Procedures: 2D, M-mode, Doppler, Color Flow, Definity was used to enhance endocardial definition. The study quality is technically adequate. Race: W ++++++++++++++++++++++++++++++++++++ SUMMARY: ++++++++++++++++++++++++++++++++++++ The left ventricular size is normal. The left ventricular systolic function is normal. Estimated left ventricular ejection fraction is 60-65%. Mild concentric left ventricular hypertrophy. Left ventricular diastolic function is abnormal (grade 1 - impaired relaxation). The right ventricle size is normal. The right ventricular function is normal. Mild mitral regurgitation. Mild tricuspid regurgitation. ++++++++++++++++++++++++++++++++++++ FINDINGS: ++++++++++++++++++++++++++++++++++++ LV: The left ventricular size is normal. The left ventricular systolic function is normal. Estimated left ventricular ejection fraction is 60-65%. Mild concentric left ventricular hypertrophy. Left ventricular diastolic function is abnormal (grade 1 - impaired relaxation). WM: Wall motion appears normal in all segments. RV: The right ventricle size is normal. The right ventricular function is normal. IVS: No evidence of ventricular septal defect. LA: Left atrial size is normal. RA: The right atrial size is normal. IAS: Atrial septum appears intact. GALDINO: No evidence of pericardial effusion. AO: Normal aortic root. SVn: Inferior vena cava is normal. Inferior vena cava shows >50% collapse with respiration consistent with normal right atrial pressure. AV: The aortic valve is trileaflet. No evidence of aortic valve stenosis. No evidence of aortic valve regurgitation. MV: Mild mitral regurgitation. No evidence of mitral stenosis. PV: Trace pulmonic regurgitation. No evidence of pulmonic valve stenosis. TV: Mild tricuspid regurgitation. Right ventricular systolic pressure is <30 mmHg. No evidence of tricuspid valve stenosis. ++++++++++++++++++++++++++++++++++++ MEASUREMENTS: ++++++++++++++++++++++++++++++++++++ DOPPLER LVOT LVOTpkPG 4 mmHg LVOTmnPG 2 mmHg LVOTpkVel 106 cm/s (70-110) LVOT SV 69 ml LVOT TVI 21.9 cm Right Atrium RA Press 3 mmHg Royal's Disk 20 Pulmonary Veins PVnpkVeld 55 cm/s PVnVs/Vd 1.6 PVnpkVels 87 cm/s AV Forward Flow AV TVI 27.7 cm AV pkPG 6 mmHg AV pkVel 121 cm/s (100-170) Area (TVI) 2.48 cm2 (3-5)* AV mnPG 3 mmHg Area (Shlomo) 2.75 cm2 (3-5)* MV Forward Flow MV DeTm 264 msec MV pkE 67.3 cm/s (60-130) MV E/A 0.8 MV pkA 80.9 cm/s PV Forward Flow PV pkVel 103 cm/s (60-90)* PV AC 119 msec PV pkPG 4 mmHg TV Regurg Flow TV pkPG 25 mmHg TV pkVel 252 cm/s (30-70)* Right Ventricle RVsys P 28 mmHg Right Ventricle 11.7 cm/s Lat E' Lat e 9.03 cm/s Lat E/E' Lat E/e 7.5 Med E' Med e 6.09 cm/s Med E/E' Med E/e 11.1 Aortic Valve Aortic Valve Ar 1.43 Aortic Valve Ve 0.88 PV Antegrade Flow Acceleration Sl 712 cm/s2 2D Left Ventricle LVIDd 4.5 cm (3.6-5.2)+ LV ESV 29.9 ml LVIDs 2.8 cm (2.3-3.9)+ LV ESV 38.5 ml LngAxd 7.92 cm LVESV BP 34.2 ml LngAxd 7.62 cm LV EF 68.4 % LV EDV 94.6 ml LV EF 57 % LV EDV 89.6 ml LV EF BP 63.5 % LVEDV BP 93.8 ml LV SV 64.8 ml LngAxs 6.54 cm LV SV 51.1 ml LngAxs 6.42 cm LV SV BP 59.6 ml LVPW LVPWd 1 cm Ventricular Septum IVSd 1.1 cm Left Atrium LA VOLBP 43.1 ml Aorta Ao Rtd 2.6 cm (zsc -0.2) LVOT LVOT 2 cm LVOTArea 3.14 cm2 Ratios IVS LA Biplane LAVol I BP 24.8 ml/m2 RA Single Plane Right Atrium MO 12.6 mm Right Atrium Sy 26.7 ml Right Atrium Sy 41 mm Right Atrium Sy 15.3 ml/m2 Right Atrium Sy 11.7 cm2 Right Ventricle Right Ventricle 31 mm Right Ventricle 20 mm Major Florence 55 mm MMODE TA Tricuspid Annul 19.3 mm <Electronic Signature> 08/02/2024 09:13 PM Milton Rodriguez M.D. us Milton Rodriguez MD ECHO Final Res ult * OXR LT WRIST M3V (07/15/2024 9:21 AM BILLING AUDITOR) Only the most recent of2 resultswithin the time period is included. Anatomical Region Laterality Modality Radiographic Chiara ging Narrative 07/22/2024 4:09 PM BILLING AUDITOR Alignment within normal limits, No gross deformities, no soft tissue abnormalities, lesions or gas. No bony tumors or lesions. Fracture fragments well reduced with no signs of interval displacement. No interval abnormal changes. Hardware in proper placement., significant arthritic changes. us Dominik Lopez MD GENERAL IMAGING Final Result * (ABNORMAL) BASIC METABOLIC PANEL (06/25/2024 9:24 AM BILLING AUDITOR) Only the most recent of4 resultswithin the time period is included. GLUCOSE 133(H) 70 - 99 MG/DL 06/25/2024 9:51 AM [facility] BUN 26(H) 7 - 18 MG/DL 06/25/2024 9:51 AM [facility] CREATININE S/P/B 1.16(H) 0.55 - 1.02 MG/DL 06/25/2024 9:51 AM [facility] SODIUM S/P/B 140 136 - 145 MMOL/L 06/25/2024 9:51 AM [facility] POTASSIUM S/P/B 4.0 3.5 - 5.1 MMOL/L 06/25/2024 9:51 AM [facility] CHLORIDE S/P/B 104 100 - 108 MMOL/L 06/25/2024 9:51 AM [facility] CO2 25.8 21 - 32 MMOL/L 06/25/2024 9:51 AM [facility] CALCIUM S/P/B 9.2 8.5 - 10.1 MG/DL 06/25/2024 9:51 AM [facility] ANION GAP 10.2 5 - 15 MMOL/L 06/25/2024 9:51 AM [facility] BUN CREATININE RATIO 22.4 6 - 26 06/25/2024 9:51 AM [facility] GFR ESTIMATE 49(L) >90 ML/MIN/1.7 3 M2 06/25/2024 9:51 AM [facility] Comment: NOTE: eGFR is not calculated for patients <18 years of age. This is an estimated GFR calculation using the new CKD EPI creatinine equation without race and so does not require a correction factor for race. This estimated GFR should not be used for calculating drug doses. 06/25/2024 9:24 AM BILLING AUDITOR Tera Schultz MD LABORATORY Final Res ult [facility] [address] [place] [address], * (ABNORMAL) CBC W/DIFF AUTOMATED (06/25/2024 9:24 AM BILLING AUDITOR) Only the most recent of5 resultswithin the time period is included. WBC 8.46 4.4 - 11.0 x10'3/uL 06/25/2024 9:34 AM [facility] RBC 4.19(L) 4.50 - 5.10 x10'6/uL 06/25/2024 9:34 AM [facility] HGB 12.0(L) 12.3 - 15.3 G/DL 06/25/2024 9:34 AM [facility] HCT 36.8 35.9 - 44.6 % 06/25/2024 9:34 AM [facility] MCV 87.8 80.0 - 96.0 FL 06/25/2024 9:34 AM [facility] MCH 28.6 25.3 - 30.9 PG 06/25/2024 9:34 AM [facility] MCHC 32.6 31.0 - 34.1 G/DL 06/25/2024 9:34 AM [facility] RDW 14.6 12.4 - 15.1 % 06/25/2024 9:34 AM [facility] PLT 361(H) 151 - 353 x10'3/uL 06/25/2024 9:34 AM [facility] MPV 9.9 9.6 - 12.0 FL 06/25/2024 9:34 AM [facility] RBC MORPHOLOGY NORMAL 06/25/2024 9:34 AM [facility] PLT MORPH. NORMAL 06/25/2024 9:34 AM [facility] WBC MORPHOLOGY NORMAL 06/25/2024 9:34 AM [facility] LYMPHOCYTES % 18.0 15.8 - 45.0 % 06/25/2024 9:34 AM [facility] NEUTROPHILS % 71.2 42.1 - 71.9 % 06/25/2024 9:34 AM [facility] MONOCYTES % 7.6 5.7 - 12.5 % 06/25/2024 9:34 AM [facility] EOSINOPHILS 2.1 0.0 - 5.6 % 06/25/2024 9:34 AM [facility] BASOPHILS 0.4 0.0 - 1.3 % 06/25/2024 9:34 AM [facility] ABS. NEUTROPHILS 6.03(H) 1.40 - 6.00 x10'3/uL 06/25/2024 9:34 AM [facility] IMMATURE GRANS % 0.7(H) 0.0 - 0.5 % 06/25/2024 9:34 AM [facility] ABS. LYMPHOCYTES 1.52 0.80 - 4.70 x10'3/uL 06/25/2024 9:34 AM BILLING AUDITOR [facility] 06/25/2024 9:24 AM BILLING AUDITOR Tera Schultz MD LABORATORY Final Res ult [facility] [address] [place] [address], * XR WRIST LT 2V (06/23/2024 1:37 PM BILLING AUDITOR) Only the most recent of2 resultswithin the time period is included. Anatomical Region Laterality Modality Wrist Radiographic Chiara ging 06/23/2024 1:45 PM BILLING AUDITOR Impressions 06/23/2024 1:48 PM BILLING AUDITOR IMPRESSION: Postoperative changes to the distal radius and ulna. Referred By: Interpreted By: Juanjo Kumar MD, 06/23/2024 1:45 PM Narrative 06/23/2024 1:48 PM BILLING AUDITOR [address] [address] EXAM: XR WRIST LT 2V DATE: 06/23/2024 1329 hours COMPARISON: Fluoroscopic images 06/18/2024, x-ray 06/09/2024. INDICATION: Fracture, internal and external fixation. TECHNIQUE: 2 views FINDINGS: Anterior screw and plate fixation of a metaphyseal fracture of the radius. External fixation pin is also in place. 2 external fixation pins across the metaphysis fracture of the ulna. Near normal alignment compared to the comparison radiographs. Normal alignment of the wrist. Mild areas of sclerosis are visualized compatible with early healing changes. Procedure Note Juanjo Kumar MD - 06/23/2024 [address] [place], [place] [address] EXAM: XR WRIST LT 2V DATE: 06/23/2024 1329 hours COMPARISON: Fluoroscopic images 06/18/2024, x-ray 06/09/2024. INDICATION: Fracture, internal and external fixation. TECHNIQUE: 2 views FINDINGS: Anterior screw and plate fixation of a metaphyseal fracture ofthe radius. External fixation pin is also in place. 2 external fixationpins across the metaphysis fracture of the ulna. Near normal alignmentcompared to the comparison radiographs. Normal alignment of the wrist.Mild areas of sclerosis are visualized compatible with early healingchanges. IMPRESSION: Postoperative changes to the distal radius and ulna. Referred By: Interpreted By: Juanjo Kumar MD, 06/23/2024 1:45 PM Tera Schultz MD GENERAL IMAGING Final Res ult * THYROXINE, FREE (FT4) (06/22/2024 2:52 PM BILLING AUDITOR) FREE T4 1.06 0.76 - 1.46 NG/DL 06/22/2024 4:07 PM BILLING AUDITOR [facility] 06/22/2024 2:52 PM BILLING AUDITOR Tera Schultz MD LABORATORY Final Res ult [facility] [address] [place] [address], [place] [phone] * EEG (06/22/2024 1:56 PM BILLING AUDITOR) Narrative [facility] - 06/22/2024 1:56 PM BILLING AUDITOR Huang Edouard MD 06/22/2024 1:58 PM Date of Service: 06/22/24 Procedure: Spot EEG Duration: 20-40min study Indications: The indication of this EEG is for further seizure work up and rule out seizures. Details of Procedure: Conditions of Recording: This is a digital EEG performed using disc electrodes placed according to the International 10-20 system of electrode placement. Scalp to scalp and scalp to ear montages were used. Activation Procedures: Photic Stimulations Results: When maximally aroused, the awake background consists of frequencies that primarily fall within the alpha range, 8-10 Hz on average. The posterior dominant rhythm is well-formed, symmetric characterized by 9 Hz symmetric posterior rhythm averaging 20-40 uV in amplitude and is present bilaterally during the awake period. There was an appropriate admixture of frequencies and the anterior-posterior gradient was well-formed. Drowsiness was evidenced by attenuation of the posterior dominant rhythm. Amplitudes are within normal range symmetric throughout. There is no significant asymmetry between the 2 hemispheres with regards to amplitudes, morphologies, or frequencies. Sleep architecture was not observed during this recording. Photic stimulation was stopped at 12.5 Hz due to patient's eye hurting and getting dizzy; however, no EEG changes were noted. No definite interictal epileptiform discharges or seizures were observed. None of the movements documented by the tech were associated with abnormal EEG. Impression: - Normal EEG in the awake and drowsy state - Photic stimulation discontinued at 12.5 Hz due to patient discomfort (eye pain and dizziness), without associated EEG changes Comments: If there is clinical suspicion for seizures, continue empiric treatment with a seizure medication. The absence of interictal epileptiform discharges does not exclude the possibility of a prior seizure or of the predisposition to future seizures. The patient's reported symptoms during photic stimulation (eye pain and dizziness) occurred without corresponding EEG changes. This suggests that these symptoms were not associated with epileptiform activity. However, it's important to note that some individuals may experience discomfort during photic stimulation without it necessarily indicating an underlying neurological issue. Huang Krishna MD Epileptologist, Neurohospitalist us Osmar Tijerina MD NEUROLOGY ORDERABLES Final Result [facility] [address] [place] [address], [place] [phone] * (ABNORMAL) URINALYSIS (06/22/2024 11:55 AM [facility] SPECIMEN TYPE URINE CLEAN CATCH 06/22/2024 12:00 PM [facility] COLOR (U) YELLOW 06/22/2024 12:32 PM [facility] TRANSPARENCY CLEAR 06/22/2024 12:32 PM [facility] SPECIFIC GRAVITY (U) 1.029 1.001 - 1.030 06/22/2024 12:32 PM [facility] U PH 5.5 5.0 - 9.0 06/22/2024 12:32 PM [facility] LEUKOCYTES (U) 250(A) NEGATIVE 06/22/2024 12:32 PM [facility] NITRITES NEGATIVE NEGATIVE 06/22/2024 12:32 PM [facility] PROTEIN RANDOM (U) NEGATIVE <30 MG/DL 06/22/2024 12:32 PM [facility] GLUCOSE (U) NORMAL NORMAL MG/DL 06/22/2024 12:32 PM [facility] KETONES MG/DL (U) NEGATIVE NEGATIVE MG/DL 06/22/2024 12:32 PM [facility] UROBILINOGEN NORMAL NORMAL MG/DL 06/22/2024 12:32 PM [facility] BILIRUBIN (U) NEGATIVE NEGATIVE MG/DL 06/22/2024 12:32 PM [facility] BLOOD (U) NEGATIVE NEGATIVE 06/22/2024 12:32 PM [facility] MUCUS RARE /LPF 06/22/2024 12:32 PM [facility] WBC/HPF 8(H) <6 /HPF 06/22/2024 12:32 PM [facility] RBC/HPF >100(H) <6 /HPF 06/22/2024 12:32 PM BILLING AUDITOR [facility] SQUAMOUS EPITHELIALS RARE /HPF 06/22/2024 12:32 PM BILLING AUDITOR [facility] URINE SPECIMEN OBTAINED BY CLEAN CATCH PROCEDURE / Unknown 06/22/2024 11:55 AM BILLING AUDITOR Celeste Villalobos MD URINE ORDERABLES Final Result Performing Organization Address City/[facility]/ZIP Co de Phone Number [facility] [address] [place] [phone], * HEMOGLOBIN, GLYCATED (06/22/2024 6:46 AM BILLING AUDITOR) HGB A1C 5.5 <5.7 % 06/22/2024 10:04 AM [facility] Comment: ADA GUIDELINES 2010 5.7 TO 6.4% INCREASED RISK OF DIABETES > OR = 6.5% CONSISTENT WITH DIABETES ESTIMATED AVG GLUCOSE 111 mg/dL 06/22/2024 10:04 AM BILLING AUDITOR [facility] 06/22/2024 6:46 AM BILLING AUDITOR Osmar Tijerina MD LABORATORY Final Resul t Performing Organization Address City/[facility]/ZIP Co de Phone Number [facility] [address] [place] [phone], * PROTHROMBIN TIME, VENOUS (06/22/2024 6:46 AM BILLING AUDITOR) PROTIME 11.6 10.2 - 12.9 SEC 06/22/2024 7:21 AM BILLING AUDITOR [facility] INR 1.0 06/22/2024 7:21 AM [facility] Comment: Recommended INR Therapeutic Goals: 2.0-3.0 Routine Therapy 2.5-3.5 Mechanical Prosthetic Valves (High Risk) 06/22/2024 6:46 AM BILLING AUDITOR Osmar Tijerina MD LABORATORY Final Resul t [facility] [address] [place] [address], * LIPID PANEL (06/22/2024 6:46 AM BILLING AUDITOR) CHOLESTEROL 158 <200 MG/DL 06/22/2024 7:26 AM [facility] TRIGLYCERIDES 105 <150 MG/DL 06/22/2024 7:26 AM [facility] HDL 46 >40.0 MG/DL 06/22/2024 7:26 AM [facility] LDL (CALCULATED) 91 <100 MG/DL 06/22/19 7:26 AM [facility] NON HDL CHOLESTEROL 112 <130 MG/DL 06/22 7:26 AM [facility] CHOL/HDL RATIO 3.4 0.0 - 4.5 06/22/2024 7:26 AM [facility] VLDL CALCULATION 21 5 - 55 MG/DL 06/22/2024 7:26 AM [facility] LIPID INTERPRETATION 06/22/2024 7:26 AM [facility] Comment: NIH CONCENSUS REPORT RECOMMENDATIONS: ADULT CHILD LOW RISK: CHOLESTEROL <200 <170 TRIGLYCERIDE <150 --- HDL >=60 --- LDL <100 <110 BORDERLINE: CHOLESTEROL 200-239 170-199 TRIGLYCERIDE 150-199 --- HDL 40-59 --- LDL 100-159 110-129 HIGH RISK: CHOLESTEROL >=240 >=200 TRIGLYCERIDE >=200 --- HDL <40 --- LDL >=160 >=130 06/22/2024 6:46 AM BILLING AUDITOR Osmar Tijerina MD LABORATORY Final Resul t Performing Organization Address [facility] de Phone Number [facility] [address] [place] [phone], [place] [phone] * (ABNORMAL) THYROID STIM HORMONE, TSH (06/22/2024 6:46 AM BILLING AUDITOR) TSH 0.261(L) 0.358 - 3.74 uIU/ML 06/22/2024 7:33 AM BILLING AUDITOR [facility] Comment: HIGH DOSES OF BIOTIN MAY INTERFERE WITH THIS TEST RESULT. CORRELATION TO CLINICAL HISTORY AND PRESENTATION RECOMMENDED. 06/22/2024 6:46 AM BILLING AUDITOR us Osmar Tijerina MD LABORATORY Final Resul t Performing Organization Address [facility] de Phone Number [facility] [address] [place] [phone], [place] [phone] * (ABNORMAL) MAGNESIUM (06/22/2024 6:46 AM BILLING AUDITOR) MAGNESIUM 2.9(H) 1.8 - 2.4 MG/DL 06/22/2024 7:33 AM BILLING AUDITOR [facility] 06/22/2024 6:46 AM BILLING AUDITOR us Osmar Tijerina MD LABORATORY Final Resul t Performing Organization Address [facility] Co de Phone Number [facility] [address] [place] [phone], [place] [phone] * ECG 12 lead (06/22/2024 2:27 AM BILLING AUDITOR) Only the most recent of2 resultswithin the time period is included. 06/22/2024 2:27 AM BILLING AUDITOR Narrative [facility] - 06/22/2024 12:[address] 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 Anatomical Region Laterality Modality Head Computed Tomogra phy 06/21/2024 7:23 PM BILLING AUDITOR Impressions 06/21/2024 7:26 PM BILLING AUDITOR =====IMPRESSION:===== No acute intracranial abnormality. Ordered By: CELESTE VILLALOBOS Interpreted By: Zachayr Nesbitt MD, 06/21/2024 7:23 PM Narrative 06/21/2024 7:26 PM BILLING AUDITOR [address] [address] EXAMINATION: CT of the head without contrast EXAM DATE/TIME: 06/21/2024 6:59 PM REASON FOR EXAM: weakness Confusion. COMPARISON: 06/09/2024 CT head without contrast TECHNIQUE: Noncontrast CT examination of the head was performed with axial images obtained. Coronal and sagittal multiplanar reconstruction images were obtained. A dose lowering technique was used for this procedure, which may include, but is not limited to, dose reduction technique, automated exposure control, iterative reconstruction, ALARA (As Low As Reasonably Achievable), or Image Gently techniques. FINDINGS: There has been no significant interval change since the prior CT head. No evidence of intracranial hemorrhage. Mild diffuse cerebral and cerebellar atrophy. Prominent low density within the deep white matter of each cerebral hemisphere and bilateral basal ganglia consistent with small vessel ischemic changes. No evidence of effacement of cerebral sulci or mass effect upon the brain. Pituitary, pineal, craniovertebral junction regions appear unremarkable. Mucous retention cysts are present within the inferior aspect of each maxillary sinus. The remainder of the paranasal sinuses appear clear. Mastoid air cells appear clear. Procedure Note Zachary Nesbitt MD - 06/21/2024 [address] [place], [place] [address] EXAMINATION: CT of the head without contrast EXAM DATE/TIME: 06/21/2024 6:59 PM REASON FOR EXAM: weakness Confusion. COMPARISON: 06/09/2024 CT head without contrast TECHNIQUE: Noncontrast CT examination of the head was performed with axialimages obtained. Coronal and sagittal multiplanar reconstruction imageswere obtained. A dose lowering technique was used for this procedure,which may include, but is not limited to, dose reduction technique,automated exposure control, iterative reconstruction, ALARA (As Low AsReasonably Achievable), or Image Gently techniques. FINDINGS: There has been no significant interval change since the prior CThead. No evidence of intracranial hemorrhage. Mild diffuse cerebral andcerebellar atrophy. Prominent low density within the deep white matter ofeach cerebral hemisphere and bilateral basal ganglia consistent with smallvessel ischemic changes. No evidence of effacement of cerebral sulci ormass effect upon the brain. Pituitary, pineal, craniovertebral junctionregions appear unremarkable. Mucous retention cysts are present within theinferior aspect of each maxillary sinus. The remainder of the paranasalsinuses appear clear. Mastoid air cells appear clear. =====IMPRESSION:===== No acute intracranial abnormality. Ordered By: CELESTE VILLALOBOS Interpreted By: Zachary Nesbitt MD, 06/21/2024 7:23 PM Celeste Villalobos MD CT Final Result * XR CHEST PORTABLE (06/21/2024 5:57 PM BILLING AUDITOR) Anatomical Region Laterality Modality Chest Radiographic Chiara ging 06/21/2024 6:01 PM BILLING AUDITOR Impressions 06/21/2024 6:01 PM BILLING AUDITOR =====IMPRESSION:===== No radiographic evidence of active chest disease. Ordered By: CELESTE VILLALOBOS Interpreted By: Zachary Nesbitt MD, 06/21/2024 6:01 PM Narrative 06/21/2024 6:01 PM BILLING AUDITOR [place] [address] Examination: Chest x-ray 1 view Exam date/time: 06/21/2024 5:56 PM Reason For Exam: cough Comparison: 10/24/2021 AP chest Technique: Upright AP view of the chest demonstrated. Findings: The cardiac silhouette, mediastinal contours, and pulmonary vessels appear normal. The lungs are clear. No pneumothorax. No consolidations or effusions are seen. Moderate rotation of the right. Marked degenerative change right shoulder joint. Screw plate left mid humeral shaft partially visualized. Procedure Note Zachary Nesbitt MD - 06/21/2024 [place] [address] Examination: Chest x-ray 1 view Exam date/time: 06/21/2024 5:56 PM Reason For Exam: cough Comparison: 10/24/2021 AP chest Technique: Upright AP view of the chest demonstrated. Findings: The cardiac silhouette, mediastinal contours, and pulmonaryvessels appear normal. The lungs are clear. No pneumothorax. Noconsolidations or effusions are seen. Moderate rotation of the right.Marked degenerative change right shoulder joint. Screw plate left midhumeral shaft partially visualized. =====IMPRESSION:===== No radiographic evidence of active chest disease. Ordered By: CELESTE VILLALOBOS Interpreted By: Zachary Nesbitt MD, 06/21/2024 6:01 PM Celeste Villalobos MD GENERAL IMAGING Final Result * CORONAVIRUS (COVID 19) (06/21/2024 5:36 PM BILLING AUDITOR) CORONAVIRUS SARS COV 2 RNA NEGATIVE NEGATIVE 06/21/2024 5:59 PM BILLING AUDITOR [facility] Comment: NEGATIVE RESULTS DO NOT RULE OUT COVID 19 AND SHOULD NOT BE USED THE SOLE BASIS FOR TREATMENT OR PATIENT MANAGEMENT DECISIONS, INCLUDING INFECTION CONTROL DECISIONS. NEGATIVE RESULTS SHOULD BE CONSIDERED IN THE CONTEXT OF A PATIENT'S RECENT EXPOSURES, HISTORY AND THE PRESENCE OF CLINICAL SIGNS AND SYMPTOMS CONSISTENT WITH COVID 19. THE ID NOW COVID-19 2.0 TEST HAS BEEN AUTHORIZED BY THE FDA UNDER EAU FOR USE BY AUTHORIZED LABORATORIES. PERFORMED BY NUCLEIC ACID AMPLIFICATION FOR MOLECULAR QUALITATIVE DETECTION OF SARS-COV-2. SPECIMEN TYPE NASAL 06/21/2024 5:36 PM BILLING AUDITOR [facility] NASAL STRUCTURE / Unknown 06/21/2024 5:36 PM BILLING AUDITOR Celeste Villalobos MD MICROBIOLOGY - GENERAL ORDERA BLES Final Result [facility] [address] [place] [address], [place] [phone] * INFLUENZA A & B (06/21/2024 5:36 PM BILLING AUDITOR) Pathologist [facility] SPECIMEN TYPE NASAL 06/21/2024 5:41 PM BILLING AUDITOR [facility] INFLUENZA A NEGATIVE NEGATIVE 06/21/2024 5:59 PM BILLING AUDITOR [facility] INFLUENZA B NEGATIVE NEGATIVE 06/21/2024 5:59 PM BILLING AUDITOR [facility] Comment: Interpretation: Negative for Influenza A and B. A negative result does not exclude influenza virus infection. If influenza is circulating in your community, a diagnosis of influenza should be considered based on a patient's clinical presentation and empiric antiviral treatment should be considered, if indicated. If more conclusive testing is needed for hospitalized inpatients, follow-up confirmatory testing with RT-PCR requires a separate order. NASOPHARYNGEAL SWAB / Unknown 06/21/2024 5:36 PM BILLING AUDITOR us Celeste Villalobos MD MICROBIOLOGY - GENERAL ORDERA BLES Final Result [facility] [address] [place] [address], [place] [phone] * (ABNORMAL) COMPREHENSIVE METABOLIC PANEL (06/21/2024 5:30 PM BILLING AUDITOR) [facility] GLUCOSE 102(H) 70 - 99 MG/DL 06/21/2024 6:09 PM BILLING AUDITOR [facility] BUN 24(H) 7 - 18 MG/DL 06/21/2024 6:09 PM [facility] CREATININE S/P/B 1.16(H) 0.55 - 1.02 MG/DL 06/21/2024 6:09 PM [facility] SODIUM S/P/B 139 136 - 145 MMOL/L 06/21/2024 6:09 PM [facility] POTASSIUM S/P/B 3.9 3.5 - 5.1 MMOL/L 06/21/2024 6:09 PM [facility] CHLORIDE S/P/B 102 97 - 115 MMOL/L 06/21/2024 6:09 PM [facility] CO2 30.2 21 - 32 MMOL/L 06/21/2024 6:09 PM [facility] CALCIUM S/P/B 9.2 8.5 - 10.1 MG/DL 06/21/2024 6:09 PM [facility] BILIRUBIN TOTAL S/P/B 0.3 0.2 - 1.2 MG/DL 06/21/2024 6:09 PM [facility] Comment: THIS ASSAY IS NOT RECOMMENDED FOR PATIENTS UNDERGOING TREATMENT WITH ELTROMBOPAG DUE TO THE POTENTIAL FOR FALSELY ELEVATED RESULTS. TOTAL PROTEIN S/P/B 8.1 6.4 - 8.2 G/DL 06/21/2024 6:09 PM [facility] ALBUMIN S/P/B 3.5 3.4 - 5.0 G/DL 06/21/2024 6:09 PM [facility] AST 33 15 - 37 U/L 06/21/2024 6:09 PM [facility] ALT 17 14 - 55 U/L 06/21/2024 6:09 PM [facility] ALKALINE PHOSPHATASE S/P/B 122 50 - 136 U/L 06/21/2024 6:09 PM [facility] ANION GAP 6.8 2 - 10 MMOL/L 06/21/2024 6:09 PM [facility] BUN CREATININE RATIO 20.7 6 - 26 06/21/2024 6:09 PM [facility] A/G RATIO 0.8(L) 1.0 - 2.0 RATIO 06/21/2024 6:09 PM [facility] GFR ESTIMATE 49(L) >90 ML/MIN/1.7 3 M2 06/21/2024 6:09 PM [facility] Comment: NOTE: eGFR is not calculated for patients <18 years of age or gender unknown. This is an estimated GFR calculation using the new CKD EPI creatinine equation without race and so does not require a correction factor for race. This estimated GFR should not be used for calculating drug doses. 06/21/2024 5:30 PM BILLING AUDITOR us Celeste Villalobos MD LABORATORY Final Result [facility] [address] [place] [address], [place] [phone] * TROPONIN, QUANT (06/21/2024 5:30 PM BILLING AUDITOR) TROPONIN I HIGH SENSITIVITY 7 <54 ng/L 06/21/2024 6:09 PM BILLING AUDITOR [facility] Comment: HIGH DOSES OF BIOTIN, TROPONIN-SPECIFIC AUTOANTIBODIES, AND ANTIBODY THERAPY CONTAINING HAMA MAY INTERFERE WITH THIS TEST RESULT. CORRELATION TO CLINICAL HISTORY AND PRESENTATION RECOMMENDED. 06/21/2024 5:30 PM BILLING AUDITOR Celeste Villalobos MD LABORATORY Final Result [facility] [address] [place] [address], [place] [phone] * SURG XR WRIST LT 2V (06/18/2024 3:14 PM BILLING AUDITOR) Anatomical Region Laterality Modality Wrist Radiographic Chiara ging 06/18/2024 8:49 PM BILLING AUDITOR Impressions 06/18/2024 8:50 PM BILLING AUDITOR Impression: Fluoroscopic spot views of left wrist obtained for intraoperative control purposes and evaluated postoperatively. Referred By: Interpreted By: Ezequiel Thayer MD, 06/18/2024 8:49 PM Narrative 06/18/2024 8:50 PM BILLING AUDITOR [place] [address] Intraoperative fluoroscopic views of the left wrist History: Distal radius and ulnar fractures Dose: Total Dose Area Product: 0.2428 (Gycm2). Technique: Intraoperative fluoroscopy control images obtained. Findings: Submitted images demonstrate plate and screw fixation along the distal radius with additional external fixation pins traversing the distal ulna. Procedure Note Ezequiel Thayer MD - 06/18/[address] [address] Intraoperative fluoroscopic views of the left wrist History: Distal radius and ulnar fractures Dose: Total Dose Area Product: 0.2428 (Gycm2). Technique: Intraoperative fluoroscopy control images obtained. Findings: Submitted images demonstrate plate and screw fixation along thedistal radius with additional external fixation pins traversing the distalulna. Impression: Fluoroscopic spot views of left wrist obtained forintraoperative control purposes and evaluated postoperatively. Referred By: Interpreted By: Ezequiel Thayer MD, 06/18/2024 8:49 PM us Dominik Lopez MD IMAGES ONLY Final Result * FL AN PERIPHERAL BLOCK SINGLE-SHOT (06/18/2024 11:56 AM BILLING AUDITOR) Thee Mascorro DO - 06/18/2024 11:56 AM BILLING AUDITOR Thee Lopez DO 06/18/2024 11:57 AM Peripheral Block Performed by: Thee Lopez DO Authorized by: Thee Lopez DO Procedure Start: 06/18/2024 11:46 AM Procedure Stop: 06/18/2024 11:54 AM Patient Location: Pre-op Reason for Block: at surgeon's request and post-op pain management patient identified, IV checked, site marked, risks and benefits discussed, consent, monitors and equipment checked, pre-op evaluation and timeout performed Patient Position: Semi-recumbent Monitoring: Blood pressure, continuous pulse ox, ECG/EKG and heart rate Prep: Chlorhexidine Draping: Sterile technique maintained Block Type: Supraclavicular Injection Technique: Single-shot Technique: ultrasound guided Needle Type: Stimuplex Needle Gauge: 20 G Needle Length: 4 in Needle Localization: Ultrasound guidance Insertion Attempts: 1 Injection Assessment/ Attestation: Incremental injection, local visualized surrounding nerve on ultrasound, negative aspiration for heme, no apparent complications, no paresthesia on injection and paresthesia absent Paresthesia Pain: None Heart Rate Change: No Anesthesiology Interscalene Nerve Block Procedure Note Indications: 1.) Post-operative pain control 2.) Specifically requested for management of pain by Dr. Lopez Pre-procedural preparation: Prior to the procedure, the benefits, risks, and course of the supraclavicular nerve block were discussed with the patient. All of the patient's questions were answered and consent was obtained. A time-out was performed, the operative side was confirmed with the patient and the surgical consent, and the operative site was marked. IV Sedation given: -Fentanyl 100 mg IV Description of the procedure: The patient was placed in a supine position. Pulse oximeter, blood pressure cuff , and EKG leads were attached to the patient. The patient's left neck was cleaned with chlorhexadine solution. Using live ultrasound-guidance, the left brachial plexus was visualised A B-German #22, 50 mm (2 inch) Stimuplex A needle was slowly advanced toward the brachial plexus under live ultrasound-guidance. Prior to injection of local anesthesia, there was negative heme aspiration from the needle. 0.5% ropivacaine for a total volume of 30 ccs was slowly injected. Injection was easy, and negative heme aspiration was confirmed after each 5 mL of local anesthesia were injected. The patient denied any pain with injection of the local anesthetic. There were no EKG changes during the injection. At the end of the procedure, the ultrasound image confirmed good local anesthetic spread around the brachial plexus. The needle was removed, and the patient's neck was again cleaned. The patient tolerated the procedure without event, and there were no apparent complications. The patient was monitored in the ASU prior to going to the operating room for surgery. Thee Lopez DO [place] ANESTHESIA Final Result * US GD NDL PLACEMENT ANES (06/18/2024 9:20 AM BILLING AUDITOR) Anatomical Region Laterality Modality NA Ultrasound 06/18/2024 9:25 AM BILLING AUDITOR Narrative 06/18/2024 9:25 AM BILLING AUDITOR This report does not contain a radiologist's interpretation. Please review associated procedure and/or operative report. Procedure Note Florence Islas MD - 06/21/2024 This report does not contain a radiologist's interpretation. Please review associated procedure and/or operative report. Dominik Lopez MD ULTRASOUND Final Result * Orthopedic Injury (06/10/2024 12:10 AM BILLING AUDITOR) Narrative Ezequiel Washington MD - 06/10/2024 12:10 AM BILLING AUDITOR ISIDRO Hernandez 06/10/2024 12:13 AM Orthopedic Injury Date/Time: 06/10/2024 12:10 AM Performed by: ISIDRO Hernandez Authorized by: ISIDRO Hernandez Consent: Consent obtained: Verbal Consent given by: Patient Risks discussed: Nerve damage and pain Injury: Injury location: Forearm Forearm injury location: L forearm Forearm fracture type: distal radius and ulnar styloid Pre-procedure details: Distal neurologic exam: Normal Distal perfusion: distal pulses strong Range of motion: reduced Sedation: Sedation type: Moderate sedation Procedure details: Manipulation performed: yes Skin traction used: yes Skeletal traction used: yes Reduction successful: Slight improvement of alignment noted. X-ray confirmed reduction: yes Immobilization: Splint Splint type: Sugar tong Supplies used: Fiberglass Post-procedure details: Distal neurologic exam: Normal Distal perfusion: distal pulses strong Range of motion: normal Procedure completion: Tolerated Aranza FELIX PROCEDURE/MINOR SURGICAL OR DERABLES Final Result * Procedural Sedation (06/09/2024 7:46 PM BILLING AUDITOR) Ezequiel Posey MD - 06/09/2024 7:46 PM BILLING AUDITOR Ezequiel Washington MD 06/09/2024 8:32 PM Procedural Sedation Date/Time: 06/09/2024 7:46 PM Performed by: Ezequiel Washington MD Authorized by: ISIDRO Hernandez Reviewed (unchecked boxes indicate N/A): Reviewed: Patient Summary Reviewed: Nursing Notes Reviewed: Medications Reviewed: Imaging/Studies History of Sedation Reaction: Hx of Sedation Reaction: No History Obtained By: History Obtained By: Patient Consent: Consent obtained: Verbal and written Consent given by: Patient Risks discussed: Allergic reaction, dysrhythmia, inadequate sedation, nausea, vomiting, respiratory compromise necessitating ventilatory assistance and intubation, prolonged sedation necessitating reversal and prolonged hypoxia resulting in organ damage Indications: Procedure performed: Fracture reduction Procedure necessitating sedation performed by: Physician performing sedation Pre-sedation assessment: Time since last food or drink: 4hrs last ate fried eggs at 4 PM NPO status caution: urgency dictates proceeding with non-ideal NPO status ASA classification ([place] [employer]esthesi[employer] Classification Mar 21, 2018): Class 2-Pt with mild systemic disease Sedation Plan: Moderate (conscious sedation) Mouth openin or more finger widths Mallampati: III-soft palate, base of uvula TM Distance: >3 FB Neck ROM: Normal Pre-sedation assessments completed and reviewed: pain level Pre-sedation assessments completed and reviewed: airway patency not reviewed, cardiovascular function not reviewed, hydration status not reviewed, mental status not reviewed, nausea/vomiting not reviewed, respiratory function not reviewed and temperature not reviewed Pre-sedation assessment completed: 06/09/2024 7:48 PM Immediate pre-procedure details: Reassessment: Patient reassessed immediately prior to procedure Reviewed: vital signs, relevant labs/tests and NPO status Verified: bag valve mask available, emergency equipment available, intubation equipment available, IV patency confirmed, oxygen available and suction available Procedure details (see MAR for exact dosages): Sedation start time: 06/09/2024 8:17 PM Preoxygenation: Nasal cannula Sedation: Propofol Analgesia: Morphine Intra-procedure monitoring: Blood pressure monitoring, monitoring specialist, continuous capnometry, continuous pulse oximetry, frequent LOC assessments and frequent vital sign checks Sedation end time: 06/09/2024 8:24 PM Total sedation time (minutes): 7 Post-Sedation Exam:: Post-sedation assessment completed: 06/09/2024 8:27 PM Post-sedation assessments completed and reviewed: pain level Post-sedation assessments completed and reviewed: airway patency not reviewed, cardiovascular function not reviewed, hydration status not reviewed, mental status not reviewed, nausea/vomiting not reviewed, respiratory function not reviewed and temperature reviewed Pain Score:: 8/10 Pain Scale Used:: Number Scale Vitals: Vitals: vitals reviewed & stable Post-procedure details: Patient is stable for discharge or admission: yes Patient tolerance: Tolerated well, no immediate complications Aranza FELIX PROCEDURE/MINOR SURGICAL OR DERABLES Final Result * CT CERV SPINE WO CON (06/09/2024 7:18 PM BILLING AUDITOR) Anatomical Region Laterality Modality Spine Computed Tomogra phy 06/09/2024 7:40 PM BILLING AUDITOR Impressions 06/09/2024 7:46 PM BILLING AUDITOR IMPRESSION: HEAD CT: 1. No definite CT evidence of acute intracranial abnormality, as above. 2. Small vessel disease, old infarcts, and volume loss. CERVICAL SPINE CT: 1. No definite acute fractures identified in the cervical spine. 2. Degenerative changes. 3. Suggestion of irregularity involving the right vocal cord. Advise correlation with direct visualization to exclude underlying laryngeal lesion. 4. Thyroid nodules measuring up to 1.8 cm. Could further evaluate with follow-up thyroid ultrasound. 5. Emphysema. Referred By: Interpreted By: Dc St MD, 06/09/2024 7:40 PM Narrative 06/09/2024 7:46 PM BILLING AUDITOR [address] [address] EXAMINATION: CT of the head and CT cervical spine without contrast CLINICAL HISTORY: Fall. Head and neck injury. Trauma. COMPARISON: Head CT 10/24/2021 TECHNIQUE: CT examinations of the head and cervical spine were performed without contrast, with axial and multiplanar reformatted images obtained. A dose lowering technique was used for this procedure, which may include, but is not limited to, dose reduction technique, automated exposure control, the use of iterative reconstruction, and ALARA (As Low As Reasonably Achievable) / Image Gently techniques. FINDINGS: HEAD CT: No acute intracranial hemorrhage, extra-axial collections, or cranial mass effect, or midline shift. Confluent and patchy foci of hypodensity noted in the hemispheric white matter, likely due to small vessel disease. Scattered old lacunar infarcts evident within the deep hanks nuclei, hemispheric white matter, and pratibha. Intracranial vascular calcifications. No definite CT evidence of acute territorial infarction, though MRI would be more sensitive. Moderate volume loss with enlargement of the ventricles and extra-axial/subarachnoid spaces. No depressed calvarial fractures. Mastoid air cells clear. Mucosal thickening and retention cysts in the paranasal sinuses. Bilateral lens replacements. Severe left temporomandibular joint arthritis. CERVICAL SPINE CT: 2 mm anterolisthesis of C3 on C4. Straightening of the cervical lordosis. Slight rotation of C1 relative to C2. Otherwise the cervical vertebral alignment, vertebral body heights, and facet alignment are maintained. No definite acute fractures identified in the cervical spine. Multilevel degenerative changes are evident in the cervical spine with disc degeneration, endplate/uncovertebral osteophytes, and facet hypertrophy noted. Imaged portions of the neck soft tissues reveal atherosclerotic calcifications. Bilateral thyroid nodules measuring up to 1.8 cm on the right. Suggestion of asymmetric soft tissue thickening along the right vocal cord. Partially imaged emphysematous changes and scarring in the upper lungs. Procedure Note Dc St MD - 06/09/2024 [facility] [address] [place], [place] [address] EXAMINATION: CT of the head and CT cervical spine without contrast CLINICAL HISTORY: Fall. Head and neck injury. Trauma. COMPARISON: Head CT 10/24/2021 TECHNIQUE: CT examinations of the head and cervical spine were performedwithout contrast, with axial and multiplanar reformatted imagesobtained. A dose lowering technique was used for this procedure, which may include,but is not limited to, dose reduction technique, automated exposurecontrol, the use of iterative reconstruction, and ALARA (As Low AsReasonably Achievable) / Image Gently techniques. FINDINGS: HEAD CT: No acute intracranial hemorrhage, extra-axial collections, or cranial masseffect, or midline shift. Confluent and patchy foci of hypodensity notedin the hemispheric white matter, likely due to small vessel disease.Scattered old lacunar infarcts evident within the deep hanks nuclei,hemispheric white matter, and pratibha. Intracranial vascular calcifications.No definite CT evidence of acute territorial infarction, though MRI wouldbe more sensitive. Moderate volume loss with enlargement of the ventriclesand extra-axial/subarachnoid spaces. No depressed calvarial fractures.Mastoid air cells clear. Mucosal thickening and retention cysts in theparanasal sinuses. Bilateral lens replacements. Severe lefttemporomandibular joint arthritis. CERVICAL SPINE CT: 2 mm anterolisthesis of C3 on C4. Straightening of the cervical lordosis.Slight rotation of C1 relative to C2. Otherwise the cervical vertebralalignment, vertebral body heights, and facet alignment are maintained. Nodefinite acute fractures identified in the cervical spine. Multileveldegenerative changes are evident in the cervical spine with discdegeneration, endplate/uncovertebral osteophytes, and facet hypertrophynoted. Imaged portions of the neck soft tissues reveal atheroscleroticcalcifications. Bilateral thyroid nodules measuring up to 1.8 cm on theright. Suggestion of asymmetric soft tissue thickening along the rightvocal cord. Partially imaged emphysematous changes and scarring in theupper lungs. IMPRESSION: HEAD CT: 1. No definite CT evidence of acute intracranial abnormality, as above. 2. Small vessel disease, old infarcts, and volume loss. CERVICAL SPINE CT: 1. No definite acute fractures identified in the cervical spine. 2. Degenerative changes. 3. Suggestion of irregularity involving the right vocal cord. Advisecorrelation with direct visualization to exclude underlying laryngeallesion. 4. Thyroid nodules measuring up to 1.8 cm. Could further evaluate withfollow-up thyroid ultrasound. 5. Emphysema. Referred By: Interpreted By: Dc St MD, 06/09/2024 7:40 PM us [address]anza FELIX CT Final Resul t * XR KNEE RT 2V (06/09/2024 5:54 PM BILLING AUDITOR) Anatomical Region Laterality Modality Knee Radiographic Chiara ging 06/09/2024 6:03 PM BILLING AUDITOR Impressions 06/09/2024 6:04 PM BILLING AUDITOR IMPRESSION: No acute fracture or dislocation. Chondrocalcinosis. Arthritic changes. Ordered By: ARANZA DEAN Interpreted By: Avery Green MD, 06/09/2024 6:03 PM Narrative 06/09/2024 6:04 PM BILLING AUDITOR [address] [address] Examination: Right knee 2 views Exam time: 06/09/2024. Clinical history: Pt arrives to the ED with complaint of a fall on the ice. Pt states that she slipped and fell on her face and is having left arm pain. Pt denies any other concerns at this time. Comparison: None Technique: Frontal and lateral views of the right knee were obtained. Findings: No acute fracture. No dislocation. No evidence of bone destruction or erosive arthropathy. Chondrocalcinosis. Possible mild osteophytes. Fabella Procedure Note Avery Green MD - 06/09/[address] [address] Examination: Right knee 2 views Exam time: 06/09/2024. Clinical history: Pt arrives to the ED with complaint of a fall on theice. Pt states that she slipped and fell on her face and is having leftarm pain. Pt denies any other concerns at this time. Comparison: None Technique: Frontal and lateral views of the right knee were obtained. Findings: No acute fracture. No dislocation. No evidence of bonedestruction or erosive arthropathy. Chondrocalcinosis. Possible mildosteophytes. Fabella IMPRESSION: No acute fracture or dislocation. Chondrocalcinosis. Arthritic changes. Ordered By: ARANZA DEAN Interpreted By: Avery Green MD, 06/09/2024 6:03 PM [facility] GENERAL IMAGING Final Resul t * XR WRIST LT MIN 3V (06/09/2024 5:52 PM BILLING AUDITOR) Anatomical Region Laterality Modality Wrist Radiographic Chiara ging 06/09/2024 6:04 PM BILLING AUDITOR Impressions 06/09/2024 6:07 PM BILLING AUDITOR IMPRESSION: Displaced angulated overriding fractures, distal metaphysis of left radius and ulna, possibly comminuted. Ordered By: ARANZA DEAN Interpreted By: Avery Green MD, 06/09/2024 6:04 PM Narrative 06/09/2024 6:07 PM BILLING AUDITOR [address] [address] EXAMINATION: Left wrist 3 views EXAMINATION: Left hand, 3 views Exam time: 06/09/2024 Clinical history: Pt arrives to the ED with complaint of a fall on the ice. Pt states that she slipped and fell on her face and is having left arm pain. Pt denies any other concerns at this time. Comparison: None Technique: AP, oblique and lateral views of the left wrist were obtained. AP, lateral, oblique views of the left hand Findings: Completely displaced, angulated overriding fractures through the distal metaphysis of left radius and ulna identified, which appears comminuted. Radiocarpal alignment appears normal. Possible widening of scapholunate joint. No acute fractures of the left hand. No dislocation. Procedure Note Avery Green MD - 06/09/[address] [address] EXAMINATION: Left wrist 3 views EXAMINATION: Left hand, 3 views Exam time: 06/09/2024 Clinical history: Pt arrives to the ED with complaint of a fall on theice. Pt states that she slipped and fell on her face and is having leftarm pain. Pt denies any other concerns at this time. Comparison: None Technique: AP, oblique and lateral views of the left wrist were obtained.AP, lateral, oblique views of the left hand Findings: Completely displaced, angulated overriding fractures through thedistal metaphysis of left radius and ulna identified, which appearscomminuted. Radiocarpal alignment appears normal. Possible widening of scapholunatejoint. No acute fractures of the left hand. No dislocation. IMPRESSION: Displaced angulated overriding fractures, distal metaphysis of left radiusand ulna, possibly comminuted. Ordered By: ARANZA DEAN Interpreted By: Avery Green MD, 06/09/2024 6:04 PM [facility] Final Resul t * XR HAND LT 3V (06/09/2024 5:52 PM BILLING AUDITOR) Anatomical Region Laterality Modality Hand Radiographic Chiara ging 06/09/2024 6:04 PM BILLING AUDITOR Impressions 06/09/2024 6:07 PM BILLING AUDITOR IMPRESSION: Displaced angulated overriding fractures, distal metaphysis of left radius and ulna, possibly comminuted. Ordered By: ARANZA DEAN Interpreted By: Avery Green MD, 06/09/2024 6:04 PM Narrative 06/09/2024 6:07 PM BILLING AUDITOR [address] [address] EXAMINATION: Left wrist 3 views EXAMINATION: Left hand, 3 views Exam time: 06/09/2024 Clinical history: Pt arrives to the ED with complaint of a fall on the ice. Pt states that she slipped and fell on her face and is having left arm pain. Pt denies any other concerns at this time. Comparison: None Technique: AP, oblique and lateral views of the left wrist were obtained. AP, lateral, oblique views of the left hand Findings: Completely displaced, angulated overriding fractures through the distal metaphysis of left radius and ulna identified, which appears comminuted. Radiocarpal alignment appears normal. Possible widening of scapholunate joint. No acute fractures of the left hand. No dislocation. Procedure Note Avery Green MD - 06/09/[address] [address] EXAMINATION: Left wrist 3 views EXAMINATION: Left hand, 3 views Exam time: 06/09/2024 Clinical history: Pt arrives to the ED with complaint of a fall on theice. Pt states that she slipped and fell on her face and is having leftarm pain. Pt denies any other concerns at this time. Comparison: None Technique: AP, oblique and lateral views of the left wrist were obtained.AP, lateral, oblique views of the left hand Findings: Completely displaced, angulated overriding fractures through thedistal metaphysis of left radius and ulna identified, which appearscomminuted. Radiocarpal alignment appears normal. Possible widening of scapholunatejoint. No acute fractures of the left hand. No dislocation. IMPRESSION: Displaced angulated overriding fractures, distal metaphysis of left radiusand ulna, possibly comminuted. Ordered By: ARANZA DEAN Interpreted By: Avery Green MD, 06/09/2024 6:04 PM [facility] Final Resul t * CT LUNG SCREENING (03/08/2024 5:38 PM CDT) Anatomical Region Laterality Modality Chest Computed Tomogra phy 03/10/2024 6:44 AM CDT Impressions 03/10/2024 6:47 AM CDT IMPRESSION: 1. LUNG-RADS category 1: Negative 2. LUNG-RADS category S: Negative 3. Other incidental findings as above. RECOMMENDATIONS: Follow-up LDCT Chest in 12 months (on or around Feb 2025). Referred By: CHARITY EASTMAN Interpreted By: Pascual Siddiqui MD, 03/10/2024 6:44 AM Narrative 03/10/2024 6:47 AM CDT [address] [address] EXAM: LUNG SCREENING LOW-DOSE CT THORAX WITHOUT CONTRAST DATE: 03/08/2024 HISTORY: Asymptomatic patient meeting NCCN high-risk criteria for lung screening. LUNG CANCER SCREENING, >= 20 PK-YR SMOKING HISTORY (AGE >= 50Y) COMPARISON: no TECHNIQUE: Noncontrast, helical, low-dose CT (LDCT) chest per standard departmental protocol. Automated exposure control was utilized for dose reduction. FINDINGS: Lung Screening Specific (LUNG-RADS): Negative Potentially Significant Incidentals (LUNG-RADS category S): None. Pulmonary Incidentals: COPD with scarring. Other Incidentals: Arterial and aortic calcifications, coronary artery disease. Small hiatal hernia. Degenerative spine. Breast scattered areas of fibroglandular density. Procedure Note Pascual Siddiqui MD - 03/10/[address] [address] EXAM: LUNG SCREENING LOW-DOSE CT THORAX WITHOUT CONTRAST DATE: 03/08/2024 HISTORY: Asymptomatic patient meeting NCCN high-risk criteria for lungscreening. LUNG CANCER SCREENING, >= 20 PK-YR SMOKING HISTORY (AGE >=50Y) COMPARISON: no TECHNIQUE: Noncontrast, helical, low-dose CT (LDCT) chest per standarddepartmental protocol. Automated exposure control was utilized for dosereduction. FINDINGS: Lung Screening Specific (LUNG-RADS): Negative Potentially Significant Incidentals (LUNG-RADS category S): None. Pulmonary Incidentals: COPD with scarring. Other Incidentals: Arterial and aortic calcifications, coronary arterydisease. Small hiatal hernia. Degenerative spine. Breast scattered areasof fibroglandular density. IMPRESSION: 1. LUNG-RADS category 1: Negative 2. LUNG-RADS category S: Negative 3. Other incidental findings as above. RECOMMENDATIONS: Follow-up LDCT Chest in 12 months (on or around ). Referred By: CHARITY EASTMAN Interpreted By: Pascual Siddiqui MD, 03/10/2024 6:[address] Final Result * BONE DENSITY/DEXA (03/02/2024 2:21 PM CDT) Anatomical Region Laterality Modality Bone Mammography 03/02/2024 3:33 PM CDT Impressions 03/02/2024 3:34 PM CDT IMPRESSION: WHO Classification: Osteoporosis. RECOMMENDATIONS: All patients should ensure an adequate intake of dietary calcium and vitamin D. The NOF recommend adults under the age of 50 need 1000 mg of calcium and 400-800 IU of vitamin D daily. Effective therapy for the prevention and treatment of osteoporosis include bisphosphonates. FOLLOW-UP: People with diagnosed cases of osteoporosis or at high risk for fracture should have regular bone mineral density test. For patients eligible for Medicare, routine testing is allowed once every 2 years. Testing frequency can be increased to one year for patients who have rapidly progressing disease, those who are receiving or discontinuing medical therapy to restore bone mass, or have additional risk factors. Ordered By: CHARITY EASTMAN Interpreted By: Ernesto Rios, 03/02/2024 3:33 PM Narrative 03/02/2024 3:34 PM CDT [facility] [address] [place] [address] EXAMINATION: BONE DENSITY/DEXA INDICATIONS: Asymptomatic menopausal state COMPARISON: None TECHNIQUE: DEXA bone mineral density evaluation was performed in the AP projection over the lumbar spine and both hips utilizing standard imaging techniques. FINDINGS: The BMD measured at the AP spine L1-L4 is 0.920 g/cm? with a T-score of -1.2. The BMD measured at the left femoral neck is 0.574 g/cm? with a T-score of -2.5. The BMD measured at the left hip is 0.746 g/cm? with a T-score of -1.6. The BMD measured at the right femoral neck is 0.586 g/cm? with a T-score of - 2.4. The BMD measured at the right hip is 0.749 g/cm? with a T-score of -1.6. FRAX 10-year fracture risk: Major Osteoporotic Fracture: 21% Hip Fracture: 12% Procedure Note Ernesto Rios MD - 03/02/2024 [facility] [address] [place] [address] EXAMINATION: BONE DENSITY/DEXA INDICATIONS: Asymptomatic menopausal state COMPARISON: None TECHNIQUE: DEXA bone mineral density evaluation was performed in the APprojection over the lumbar spine and both hips utilizing standard imagingtechniques. FINDINGS: The BMD measured at the AP spine L1-L4 is 0.920 g/cm? with a T-score of-1.2. The BMD measured at the left femoral neck is 0.574 g/cm? with a T-score of-2.5. The BMD measured at the left hip is 0.746 g/cm? with a T-score of -1.6. The BMD measured at the right femoral neck is 0.586 g/cm? with a T-scoreof -2.4. The BMD measured at the right hip is 0.749 g/cm? with a T-score of -1.6. FRAX 10-year fracture risk: Major Osteoporotic Fracture: 21% Hip Fracture: 12% IMPRESSION: WHO Classification: Osteoporosis. RECOMMENDATIONS: All patients should ensure an adequate intake of dietary calcium andvitamin D. The NOF recommend adults under the age of 50 need 1000 mg ofcalcium and 400-800 IU of vitamin D daily. Effective therapy for theprevention and treatment of osteoporosis include bisphosphonates. FOLLOW-UP: People with diagnosed cases of osteoporosis or at high risk for fractureshould have regular bone mineral density test. For patients eligible forMedicare, routine testing is allowed once every 2 years. Testing frequencycan be increased to one year for patients who have rapidly progressingdisease, those who are receiving or discontinuing medical therapy torestore bone mass, or have additional risk factors. Ordered By: CHARITY EASTMAN Interpreted By: Ernesto Rios, 03/02/2024 3:33 PM Charity Eastman NP DEXA Final Result * HEPATITIS C ANTIBODY (08/21/2021 3:45 PM CDT) HEPATITIS C AB NON-REACTI VE NON-REACT CYN 08/21/2021 9:39 PM CDT [facility] Comment: ANTIBODIES TO HCV NOT DETECTED. DOES NOT EXCLUDE THE POSSIBILITY OF EXPOSURE TO HCV. 08/21/2021 3:45 PM CDT us Charity Eastman NP LABORATORY Final Result [facility] [address] [place] [address], [id number] from Last 3 Months or Most Recently Relevant to Health Maintenance Insurance [facility] [place] [id number] Advance Directives * Full Code (Latest Code Status on File) Date Activated Date Inactivated Comments 06/24/2024 4:54 PM 06/28/2024 6:25 PM * Full Code Date Activated Date Inactivated Comments 06/24/2024 3:19 PM 06/24/2024 4:54 PM * Full Code Date Activated Date Inactivated Comments 06/21/2024 10:01 PM 06/24/2024 2:52 PM * Full Code Date Activated Date Inactivated Comments 10/24/2021 9:41 PM 10/25/2021 9:05 PM Care Teams Assistant Analyst Relationship Specialty Start Date End Date Charity Eastman NP [address] [place] [address] PCP - General Nurse Practitioner Family 08/16/21 Jose Alberto Gaines MD [address] [place] [address] ORTHOPAEDIC SURGERY 07/08/22 Peña Garza MD [address] [facility]. [place] [address] [place], [place] [id number] Referring Physician VASCULAR SURGERY 07/04/22 Boom Durant MD [address] [facility] [place] [address] UROLOGY 08/23/22
--- OUTSIDE RECORDS SUMMARY | 2024-08-09 14:31 | XMS_ITS | Encounter Summary ---
Author Organization [facility] Address [address] [place] [address] Care Team Providers Care Film Sound Engineer Name Role Phone Charity Eastman NP Primary Care Provider +[phone] Jose Alberto Gaines MD Unavailable [phone] Peña Garza MD Unavailable Boom Durant MD Unavailable [phone] Encounter Details Date Type Department Care Team (Late st Contact Info) Description 08/03/[address] Message Enc [facility] Family and Sports Medicine - [place] [address] [facility] [place] [address] Saira, [facility] Provider PT Referral Social History Tobacco Use Types Packs/Day Years Used Date Smoking Tobacco: Some Days Cigarettes 0.5 50 Started: 05/26/1968; Last attempted to quit: 05/26/2018 Passive Smoke Exposure: Past Smokeless Tobacco: Never Comments: Alcohol Use Standard Drinks/Week Comments Never 0 (1 standard drink = 0.6 oz pur e alcohol) [facility] Utilities Answer Date Recorded In the past 12 months has e electric, gas, oil, or water company threatened to shut off services in your [...] money to buy more. Never true 06/22/19 Within the past 12 months, t he [...] place to sleep or slept in a penitentiary (including now)? No 08/16/2022 Housing Stability Vital Sign Answer Martin e Recorded In the last 12 months, was t here a time when you were not able to pay the mortgage or rent on time? No 06/22/2024 In the past 12 months, how m any times have you moved where you were living? 0 06/22/2024 At any time in the past 12 m [facility], were you homeless or living in a penitentiary (including now)? No 06/22/2024 Comments No Sex and Gender Information Value Date Recorded Sex Assigned at Female 10/09/2022 2:03 PM CDT Legal Sex Female 7:57 PM CDT Gender Identity Female 10/09/2022 2:03 PM CDT Sexual Orientation Straight 10/09/2022 2: 03 PM CDT documented as of this encounter Functional Status * Are you deaf or do you have serious difficulty hearing Answer Date of Assessment Author Status No 06/24/2024 3:15 PM Norma Magana RN Active * Are you blind or do you have serious difficulty seeing, even when wearing glasses? Answer Date of Assessment Author Status No 06/24/2024 3:15 PM Norma Magana RN Active * Do you have serious difficulty walking or climbing stairs? Answer Date of Assessment Author Status No 06/24/2024 3:15 PM Norma Magana RN Active * Do you have difficulty dressing or bathing? Answer Date of Assessment Author Status Yes 06/24/2024 3:15 PM Norma Magana RN Active * Because of a physical, mental, or emotional condition, do you have difficulty doing errands alone such as visiting a doctor's office or shopping? Answer Date of Assessment Author Status No 06/24/2024 3:15 PM Norma Magana RN Active documented as of this encounter Mental Status * Because of a physical, mental, or emotional condition, do you have serious difficulty concentrating, remembering, or making decisions? Answer Entry Date Author Status No 06/24/2024 3:15 PM Norma Magana RN Active documented in this encounter Plan of Treatment Upcoming Encounters Date Type Department Care Team (Late st Contact Info) Description 08/11/2024 10:45 AM CDT Office Visit [facility] Physical Therapy [address] [place] [address] Charity Eastman, PRODUCTION DEPARTMENT SUPERVISOR [address] [place] [address] Elizabeth Fernandez, PT [address] [place] [address] 08/12/2024 9:40 AM CDT Office Visit [facility] Orthopedic & Sports Medicine - [address] [place] [address] Dominik Lopez MD [address] [place] [address] 08/20/2024 12:15 PM CDT Office Visit [facility] [address] [facility] [place] [address] [place], [place] [address] Milton Rodriguez MD [address] [facility] [address] [place], [place] [id number] Marie Victor PA-C [address] [facility], [address] [place], [place] [id number] documented as of this encounter Goals Goal Patient Goal Type Associated Problems Recent Progress Patient-Stated? Author Health - patient able to perform ADLs independently Lifestyle No Aretha Olmstead, RN Patient will return to prior living situation and remain independent in ADLs upon discharge from hospital Lifestyle No Sameera Farnsworth, [place] documented as of this encounter Visit Diagnoses Not on filedocumented in this encounter Additional Health Concerns Assessment Noted Time PHQ-9 Depression Total Score: 25 023 12:49 PM CDT documented as of this encounter Care Teams Film Sound Engineer Relationship Specialty Start Date End Date Charity Eastman NP [address] [place] [address] PCP - General Nurse Practitioner Family 08/16/21 Jose Alberto Gaines MD [address] [place] [address] ORTHOPAEDIC SURGERY 07/08/22 Peña Garza MD [address] [facility]. [facility] [address] [place] [address] Referring Physician VASCULAR SURGERY 07/04/22 Boom Durant MD [address] [place] [address] UROLOGY 08/23/22 documented as of this encounter
--- OUTSIDE RECORDS SUMMARY | 2024-08-09 14:31 | XMS_ITS | Patient Health Record ---
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 Name Role Phone Charity Eastman APN Primary Care Provider UnavailRegla Sweeney Unavailable [phone] Edward Prince Unavailable [phone] Ana Palma Unavailable [phone] Migration, Provider Unavailable Unavailable Jessica Ha Unavailable [phone] Jose D Laughlin Unavailable [phone] Allergies No Known Allergies Reason For Referral No Information Medications Medication SIG (Take, Route, Frequency, Duration) Notes Start Date End Date Status Venlafaxine HCl ER 75 MG 1 capsule with food Orally Once a day Active Venlafaxine HCl ER 150 MG 1 capsule with food Oral Once a day Active Aspirin EC Adult Low Dose 81 MG 1 tablet Orally Once a day Active Atenolol 50 MG 1 tablet Orally Once a day Active ALPRAZolam 0.5 MG 0.5 tablet Oral once a day As needed Active Vitamin E Active Vitamin D3 50 MCG (2000 UT) 1 capsule Orally Once a day Active Omeprazole 20 MG Oral Act marko Sucralfate 1 GM/10ML 10 mL 1 hour before meals and at bedtime on an empty stomach Orally Four times a day Active Vitamin A 3 MG (68960 UT) 1 capsule with food or milk Orally Once a day Active Meclizine HCl 12.5 MG 1 tablet as needed Orally every 12 hrs Active Ondansetron 4 MG 1 tablet on the tong ue and allow to dissolve Orally Once a day Active Spravato (56 MG Dose) 28 MG/DEVICE 2 sprays in each nostril Nasally once for 1 days 03/16/2024 Not-Taking Vitamin B-12 1000 MCG 2 tablet Orally On ce a day Active Fish Oil 1000 MG 1 capsule Orally Thr ee times a day Active Social History Tobacco Use: Social History Observation Description Date Details (start date - stop date) Current Smoker NA - NA Sex Assigned At : Social History Observation Description Sex Assigned At Female Tobacco Control (Standard) Question Answer Notes Tobacco use: Current smoker How often do you smoke cigarettes? Every day How many cigarettes a day do you smoke? 6-10 Problems Problem Type SNOMED Code ICD Code Onset Dates Problem Status W/U Status Risk Notes Problem 41462048 Primary hypertension (I10) Active confirmed Problem 41752164 RAMY (generalized anxiety disorder) (F41.1) Active confirmed Problem 30600266 Severe episode o f recurrent major depressive disorder, without psychotic features (F33.2) Active confirmed Problem 993535722 Attention defici t hyperactivity disorder (ADHD), unspecified ADHD type (F90.9) Active confirmed Problem 872002057 Nicotine use (Z72.0) Active confirmed Vital Signs Heart Rate 72 /min 08/09/2024 Height-cm 160.02 cm 08/09/2024 Blood pressure diastolic 100 mm Hg 08/09/2024 Weight-kg 70.31 kg 08/09/2024 Height 63.00 in 08/09/2024 Blood pressure systolic 139 mm Hg 08/09/2024 Weight 155 lbs 08/09/2024 BMI 27.45 kg/m2 08/09/2024 Encounters Encounter Location Date Provider Diagnosis [facility] [address] [address] 08/09/2024 Regla Meza Encounter for screening for depression Z13.31 ; Encounter for screening for cardiovascular disorders Z13.6 ; RAMY (generalized anxiety disorder) F41.1 ; Severe episode of recurrent major depressive disorder, without psychotic features F33.2 ; Benign essential HTN I10 and Nicotine use Z72.0 [facility] [address] [address] 10/01/2023 Ana Palma [facility], [place] [address] [address] 01/09/2024 Jose D Clubb Severe episode of recurrent major depressive disorder, without psychotic features F33.2 and RAMY (generalized anxiety disorder) F41.1 [facility], [place] [address] [place] [address] [place] [address] 01/23/2024 Jose D Clubb Severe episode of recurrent major depressive disorder, without psychotic features F33.2 ; RAMY (generalized anxiety disorder) F41.1 ; Attention deficit hyperactivity disorder (ADHD), unspecified ADHD type F90.9 ; Primary hypertension I10 and Adult ADHD F90.9 [facility], [facility] [address] [place] [place] [address] 02/06/2024 Jose D Clubb Severe episode of recurrent major depressive disorder, without psychotic features F33.2 ; RAMY (generalized anxiety disorder) F41.1 ; Attention deficit hyperactivity disorder (ADHD), unspecified ADHD type F90.9 ; Primary hypertension I10 and Nicotine use Z72.0 [facility] [place] [address] [place] [address] 02/11/2024 Jessica Ha RAMY (generalized anxiety disorder) F41.1 and Severe episode of recurrent major depressive disorder, without psychotic features F33.2 [facility] [place] [address] [place] [address] 02/20/2024 Jessica Ha Severe episode of recurrent major depressive disorder, without psychotic features F33.2 ; RAMY (generalized anxiety disorder) F41.1 ; Attention deficit hyperactivity disorder (ADHD), unspecified ADHD type F90.9 and Nicotine use Z72.0 [facility] [place] [address] [place] [address] 02/27/2024 Jessica Ha [facility], [place] [address] [place] [address] 03/16/2024 Jose D Clubb Severe episode of recurrent major depressive disorder, without psychotic features F33.2 ; Nicotine use Z72.0 and RAMY (generalized anxiety disorder) F41.1 [facility] [place] [address] [place] [address] 03/25/2024 Jessica Ha [facility] [place] [address] [place] [address] 03/29/2024 Jessica Ha RAMY (generalized anxiety disorder) F41.1 and Severe episode of recurrent major depressive disorder, without psychotic features F33.2 [facility], [place] [address] [place] [address] 07/19/2024 Jose D Clubb RAMY (generalized anxiety disorder) F41.1 ; Severe episode of recurrent major depressive disorder, without psychotic features F33.2 and Benign essential HTN I10 [facility] [employer] [facility] [address] [place] [address] 07/19/2024 Jose D Clubb Severe episode of recurrent major depressive disorder, without psychotic features F33.2 [facility] [address] [place] [address] 08/20/2023 Provider Migration [facility] [address] [place] [address] 09/30/2023 Provider Migration [facility] [address] [place] [address] 10/01/2023 Provider Migration [facility] [address] [place] [address] 10/11/2023 Provider Migration [facility] [address] [place] [address] 10/12/2023 Provider Migration [facility], [place] [address] [place] [address] [place] [address] 01/09/2024 Jose D Clubb [facility], [place] [address] [place] [address] [place] [address] 02/06/2024 Jose D Clubb [facility] [address] [place] [address] 03/29/2024 Edward Prince [facility] [employer] [facility] [address] [place] [address] 07/19/2024 Jose D Clubb Assessments Encounter Date Diagnosis (ICD Code) Assessment Notes Treatment Notes Treatment Clinical Notes Section Notes 03/16/2024 Severe episode of recurrent major depressive disorder, without psychotic features (ICD-10 - F33.2) SPRAVATO is contraindicated in patients with: Aneurysmal vascular disease (including thoracic and abdominal aorta, intracranial and peripheral arterial vessels) or arteriovenous malformation No History of intracerebral hemorrhage No Hypersensitivity to Esketamine, ketamine, or any of the ingredients No UNCONTROLLED HYPERTENSION Yes Hypertension is not an absolute contraindication 1. Depression and Dissatisfaction with Current Therapy - She expressed dissatisfaction with current therapist. - Reported feeling more depressed after sessions. - Needs more feedback and conversation during therapy sessions. - Plan: a. Discuss her feedback preferences with therapist b. Encourage her to give therapy another chance. c. Schedule follow-up appointment. 2. Suicidal Ideation - Single episode of suicidal thoughts after a session with therapist. - She thought about driving into oncoming traffic. - Thoughts were gone by the time she got home. - Plan: a. Monitor her mental status closely during future appointments and therapy sessions. b. Encourage her to report any new or worsening suicidal thoughts immediately. c. she denied any suicidal thoughts since the episode and denied any SI currently. 3. Financial Stress and Housing Situation - Experiencing financial stress due to lack of [employer] bookings and problematic tenant. - She reported having only $278 in her account and no current reservations. - Plan: a. Encourage her to seek legal advice regarding eviction procedures if necessary. b. Explore alternative sources of income or financial assistance 4. Spravato Treatment - She approved for Spravato treatment for depression. - Plan: a. Order Spravato and schedule treatment sessions. b. Provide information about treatment process and potential side effects. c. Monitor her response to treatment and adjust plan as needed. d. monitor for continued headaches and hypertension. e. discussed the need to bring clonidine prescription to spravato apts. 5. Smoking Cessation - She reported reduction in smoking to one pack every three days. - Plan: a. Continue to encourage and support her efforts to quit smoking. b. Provide resources and referrals for smoking cessation programs if needed. 6. Pain and Mobility Issues Due to Recent Fall - She reported difficulty lifting arms, turning head, and dressing herself. - Considering going to the emergency room for evaluation. - Plan: a. Recommend consultation with primary care provider for evaluation. b. Suggest ordering x-ray or CT scan if necessary. c. Encourage follow-up with physical therapy as approved. 03/16/2024 Nicotine use (ICD-10 - Z72.0) Advised patient to quit smoking -Quit - Yes [place] Tobacco Quitline Call a Smoking Quitline The [employer] [place]'s Smoking Quitline, (3-679-18E-QUIT) Smokefree.gov, which connects you with your State's Quitline, (5-807-IJTPJHX) Veterans Smoking Quitline, (5-234-YUWTGAZ) 1. Depression and Dissatisfaction with Current Therapy - She expressed dissatisfaction with current therapist. - Reported feeling more depressed after sessions. - Needs more feedback and conversation during therapy sessions. - Plan: a. Discuss her feedback preferences with therapist b. Encourage her to give therapy another chance. c. Schedule follow-up appointment. 2. Suicidal Ideation - Single episode of suicidal thoughts after a session with therapist. - She thought about driving into oncoming traffic. - Thoughts were gone by the time she got home. - Plan: a. Monitor her mental status closely during future appointments and therapy sessions. b. Encourage her to report any new or worsening suicidal thoughts immediately. c. she denied any suicidal thoughts since the episode and denied any SI currently. 3. Financial Stress and Housing Situation - Experiencing financial stress due to lack of [employer] bookings and problematic tenant. - She reported having only $278 in her account and no current reservations. - Plan: a. Encourage her to seek legal advice regarding eviction procedures if necessary. b. Explore alternative sources of income or financial assistance 4. Spravato Treatment - She approved for Spravato treatment for depression. - Plan: a. Order Spravato and schedule treatment sessions. b. Provide information about treatment process and potential side effects. c. Monitor her response to treatment and adjust plan as needed. d. monitor for continued headaches and hypertension. e. discussed the need to bring clonidine prescription to [facility]ato apts. 5. Smoking Cessation - She reported reduction in smoking to one pack every three days. - Plan: a. Continue to encourage and support her efforts to quit smoking. b. Provide resources and referrals for smoking cessation programs if needed. 6. Pain and Mobility Issues Due to Recent Fall - She reported difficulty lifting arms, turning head, and dressing herself. - Considering going to the emergency room for evaluation. - Plan: a. Recommend consultation with primary care provider for evaluation. b. Suggest ordering x-ray or CT scan if necessary. c. Encourage follow-up with physical therapy as approved. 03/29/2024 RAMY (generalized anxiety disorder) (ICD-10 - F41.1) 1. Major Depressive Disorder - Continue Cognitive Behavioral Therapy (CBT) focusing on opposite action and gradual behavior change. - Encourage the patient to maintain a daily routine and engage in activities that promote mental well-being. - Monitor the patient's progress and consider medication management if symptoms worsen or do not improve. 2. Anxiety Related to Interpersonal Relationships and Financial Stress - Utilize CBT techniques to help the patient develop coping strategies for managing anxiety. - Encourage the patient to set boundaries with guests and implement payment policies to reduce financial stress. 3. Possible Obsessive-Compuls marko Disorder (OCD) - Further assess the patient's symptoms and behaviors to determine if a formal diagnosis of OCD is warranted. - If necessary, incorporate OCD-specific CBT techniques and consider medication management. 4. Poor Dental Hygiene and Oral Health - Encourage the patient to prioritize oral hygiene and schedule a dental appointment for evaluation and treatment. 5. Chronic Obstructive Pulmonary Disease (COPD) and Smoking - Encourage the patient to continue reducing cigarette consumption and eventually quit smoking. - Monitor COPD symptoms and provide appropriate medical management as needed. 6. Risk of Cardiovascular Disease - Schedule a follow-up appointment on June 08 for further evaluation and management of cardiovascular risk factors. 7. Self-Care and Personal Growth - Encourage the patient to continue working on self-help worksheets, writing in her blog, and engaging in activities that promote self-care and personal growth. - Provide support and guidance through ongoing therapy sessions. Follow-up: - Monitor the patient's progress in addressing the identified issues through ongoing therapy sessions and scheduled follow-up appointments. 03/29/2024 Severe episode of recurrent major depressive disorder, without psychotic features (ICD-10 - F33.2) 1. Major Depressive Disorder - Continue Cognitive Behavioral Therapy (CBT) focusing on opposite action and gradual behavior change. - Encourage the patient to maintain a daily routine and engage in activities that promote mental well-being. - Monitor the patient's progress and consider medication management if symptoms worsen or do not improve. 2. Anxiety Related to Interpersonal Relationships and Financial Stress - Utilize CBT techniques to help the patient develop coping strategies for managing anxiety. - Encourage the patient to set boundaries with guests and implement payment policies to reduce financial stress. 3. Possible Obsessive-Compuls marko Disorder (OCD) - Further assess the patient's symptoms and behaviors to determine if a formal diagnosis of OCD is warranted. - If necessary, incorporate OCD-specific CBT techniques and consider medication management. 4. Poor Dental Hygiene and Oral Health - Encourage the patient to prioritize oral hygiene and schedule a dental appointment for evaluation and treatment. 5. Chronic Obstructive Pulmonary Disease (COPD) and Smoking - Encourage the patient to continue reducing cigarette consumption and eventually quit smoking. - Monitor COPD symptoms and provide appropriate medical management as needed. 6. Risk of Cardiovascular Disease - Schedule a follow-up appointment on June 08 for further evaluation and management of cardiovascular risk factors. 7. Self-Care and Personal Growth - Encourage the patient to continue working on self-help worksheets, writing in her blog, and engaging in activities that promote self-care and personal growth. - Provide support and guidance through ongoing therapy sessions. Follow-up: - Monitor the patient's progress in addressing the identified issues through ongoing therapy sessions and scheduled follow-up appointments. 07/19/2024 Severe episode of recurrent major depressive disorder, without psychotic features (ICD-10 - F33.2) 07/19/2024 RAMY (generalized anxiety disorder) (ICD-10 - F41.1) 07/19/2024 Severe episode of recurrent major depressive disorder, without psychotic features (ICD-10 - F33.2) 08/09/2024 Encounter for screening for depression (ICD-10 - Z13.31) 01/23/2024 RAMY (generalized anxiety disorder) (ICD-10 - F41.1) Major Depressive Disorder - Patient reports persistent depression since 2007, with multiple failed antidepressant trials including Zoloft and Bupropion. - Patient expresses feeling sick of my life and sometimes questions her purpose. - decrease Bupropion back to original dose (was increased at last visit) related to reported side effects with the dose increase. - Plan: Discuss initiating Spravato (esketamine) nasal spray treatment, requiring twice-weekly clinic visits for 2-hour sessions. Monitor blood pressure and ensure transportation post-treatment. Obtain insurance approval and complete necessary paperwork. 2. Attention Deficit Hyperactivity Disorder (ADHD) - Patient is currently on Focalin XR 30mg and Focalin 10mg (non-XR), which she takes occasionally. - Patient reports needing additional medication around 1PM when getting up at 4:30AM. - Plan: Discuss refill on Focalin 30mg prescription with primary care provider when they return from vacation. 3. Anxiety - Patient is taking alprazolam (Xanax) as needed for anxiety from her PCP. - Patient reports recent Xanax use while in bed due to anxiety. - Plan: Continue current medication regimen and monitor for anxiety level changes. 4. Insomnia - Patient reports difficulty falling/staying asleep, with frequent night awakenings. - Patient mentions falling asleep at 6:30PM and waking at 4:30AM, with 3AM awakenings. - Plan: Encourage good sleep hygiene like consistent schedule and no TV at night. Reassess during follow-ups and consider further evaluation/treatm ent if needed. 5. Hypertension - Patient reports history of TIA, with generally regular blood pressure readings. -Blood pressure has been elevated at each visit to the [facility] walk-in clinic. 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 plan - Make an appointment with PCP once they return from their vacation to initiate medication for hypertension. - Esketamine treatment can not be initiated until the patient has stable blood pressure readings. SPRAVATO is contraindicated in patients with: Aneurysmal vascular disease (including thoracic and abdominal aorta, intracranial and peripheral arterial vessels) or arteriovenous malformation _ History of intracerebral hemorrhage _ Hypersensitivity to Esketamine, ketamine, or any of the ingredients _ UNCONTROLLED HYPERTENSION _ Hypertension is not an absolute contraindication patient does not have a history of Aneurysmal vascular disease -she does have a history of a TIA (non hemorrhage) - No history of intracerebral hemorrhage - no known history of or Hypersensitivity to Esketamine, ketamine, or any of the ingredients 01/23/2024 Severe episode of recurrent major depressive disorder, without psychotic features (ICD-10 - F33.2) Major Depressive Disorder - Patient reports persistent depression since 2007, with multiple failed antidepressant trials including Zoloft and Bupropion. - Patient expresses feeling sick of my life and sometimes questions her purpose. - decrease Bupropion back to original dose (was increased at last visit) related to reported side effects with the dose increase. - Plan: Discuss initiating Spravato (esketamine) nasal spray treatment, requiring twice-weekly clinic visits for 2-hour sessions. Monitor blood pressure and ensure transportation post-treatment. Obtain insurance approval and complete necessary paperwork. 2. Attention Deficit Hyperactivity Disorder (ADHD) - Patient is currently on Focalin XR 30mg and Focalin 10mg (non-XR), which she takes occasionally. - Patient reports needing additional medication around 1PM when getting up at 4:30AM. - Plan: Discuss refill on Focalin 30mg prescription with primary care provider when they return from vacation. 3. Anxiety - Patient is taking alprazolam (Xanax) as needed for anxiety from her PCP. - Patient reports recent Xanax use while in bed due to anxiety. - Plan: Continue current medication regimen and monitor for anxiety level changes. 4. Insomnia - Patient reports difficulty falling/staying asleep, with frequent night awakenings. - Patient mentions falling asleep at 6:30PM and waking at 4:30AM, with 3AM awakenings. - Plan: Encourage good sleep hygiene like consistent schedule and no TV at night. Reassess during follow-ups and consider further evaluation/treatm ent if needed. 5. Hypertension - Patient reports history of TIA, with generally regular blood pressure readings. -Blood pressure has been elevated at each visit to the [facility] walk-in clinic. 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 plan - Make an appointment with PCP once they return from their vacation to initiate medication for hypertension. - Esketamine treatment can not be initiated until the patient has stable blood pressure readings. SPRAVATO is contraindicated in patients with: Aneurysmal vascular disease (including thoracic and abdominal aorta, intracranial and peripheral arterial vessels) or arteriovenous malformation _ History of intracerebral hemorrhage _ Hypersensitivity to Esketamine, ketamine, or any of the ingredients _ UNCONTROLLED HYPERTENSION _ Hypertension is not an absolute contraindication patient does not have a history of Aneurysmal vascular disease -she does have a history of a TIA (non hemorrhage) - No history of intracerebral hemorrhage - no known history of or Hypersensitivity to Esketamine, ketamine, or any of the ingredients 02/06/2024 RAMY (generalized anxiety disorder) (ICD-10 - F41.1) 1. Hypertension - Start clonidine 0.1mg once daily for blood pressure and anxiety management, with plan to increase dose if needed. - Monitor blood pressure regularly. - Encourage smoking reduction and healthy lifestyle. - pt has an apt with her PCP for HTN in March. 2. Anxiety - Continue alprazolam 0.5mg as needed (patient reports seldom use). - Clonidine 0.1mg once daily will also help with anxiety management. - Encourage stress reduction techniques and healthy lifestyle. 3. ADHD - Continue dextroamphetamine as prescribed. - Discontinue dextroamphetamine booster (patient not using recently). - Monitor for side effects or worsening symptoms. 4. Depression - Continue venlafaxine 150mg + 75mg as prescribed. - CBT homework assignments printed and provided to patient. - Follow-up in 1 week to monitor progress and provide support. 5. High Cholesterol - Restart pravastatin as prescribed (patient agrees). - Encourage healthy diet, lifestyle, and smoking reduction. 6. Frequent Urination and Nerve Stimulator Issues - Appointment with Dr. Durant (urologist) for evaluation and management. 7. Potential Esketamine Treatment - Control blood pressure before initiating esketamine - Await prior authorization from for [facility]. - Discuss treatment plan and potential side effects once authorized. 8. Smoking Cessation - Encourage smoking reduction and quitting (currently 7-8 cigarettes/day). - Discuss potential cessation aids and support if needed. 9. Social Stressors - Encourage setting boundaries with house guests and healthy living environment. - Provide support and resources for stress management and mental health. 10. Follow-Up - Schedule follow-up in 1 week to monitor progress and medication effectiveness. 02/06/2024 Severe episode of recurrent major depressive disorder, without psychotic features (ICD-10 - F33.2) 1. Hypertension - Start clonidine 0.1mg once daily for blood pressure and anxiety management, with plan to increase dose if needed. - Monitor blood pressure regularly. - Encourage smoking reduction and healthy lifestyle. - pt has an apt with her PCP for HTN in March. 2. Anxiety - Continue alprazolam 0.5mg as needed (patient reports seldom use). - Clonidine 0.1mg once daily will also help with anxiety management. - Encourage stress reduction techniques and healthy lifestyle. 3. ADHD - Continue dextroamphetamine as prescribed. - Discontinue dextroamphetamine booster (patient not using recently). - Monitor for side effects or worsening symptoms. 4. Depression - Continue venlafaxine 150mg + 75mg as prescribed. - CBT homework assignments printed and provided to patient. - Follow-up in 1 week to monitor progress and provide support. 5. High Cholesterol - Restart pravastatin as prescribed (patient agrees). - Encourage healthy diet, lifestyle, and smoking reduction. 6. Frequent Urination and Nerve Stimulator Issues - Appointment with Dr. Durant (urologist) for evaluation and management. 7. Potential Esketamine Treatment - Control blood pressure before initiating esketamine - Await prior authorization from for Spravato. - Discuss treatment plan and potential side effects once authorized. 8. Smoking Cessation - Encourage smoking reduction and quitting (currently 7-8 cigarettes/day). - Discuss potential cessation aids and support if needed. 9. Social Stressors - Encourage setting boundaries with house guests and healthy living environment. - Provide support and resources for stress management and mental health. 10. Follow-Up - Schedule follow-up in 1 week to monitor progress and medication effectiveness. 02/11/2024 RAMY (generalized anxiety disorder) (ICD-10 - F41.1) 1. Anxiety and Stress Related to Personal and Professional Life - Initiate Cognitive Behavioral Therapy (CBT) sessions once a week to address anxiety and stress management. - Encourage continued journaling as a form of self-reflection and emotional processing. - Assign homework related to CBT techniques and coping strategies. 2. Interpersonal Relationship Issues - Discuss the importance of open communication and setting boundaries in relationships during CBT sessions. - Encourage the patient to have an honest conversation with her friend to address concerns and potentially repair the friendship. 3. Low Self-Esteem and Negative Self-Image - Utilize CBT techniques to challenge and reframe negative messages from the patient's past experiences with parents and ex-. - Encourage the development of a positive self-image and self-compassion. 4. Time Management and Organization Difficulties - Assist the patient in creating a structured daily schedule to balance personal, professional, and self-care activities. - Encourage the patient to prioritize tasks and set realistic goals for daily accomplishments. 5. Overactive Bladder and Incontinence - Continue working with the nurse and using the device for bladder management. - Monitor progress and discuss any concerns during therapy sessions. 6. Weight Management and Smoking Cessation - Encourage the patient to maintain a healthy diet and exercise routine. - Support the patient's decision to quit smoking and discuss potential coping strategies for cravings during therapy sessions. 7. Financial Concerns and Business Expansion - Explore potential avenues for business growth and financial stability during therapy sessions. - Encourage the patient to seek professional financial advice if necessary. Follow-up: - Schedule weekly CBT sessions and monitor the patient's progress in addressing the identified concerns. Adjust the treatment plan as needed based on the patient's progress and any new issues that may arise. 02/11/2024 Severe episode of recurrent major depressive disorder, without psychotic features (ICD-10 - F33.2) 1. Anxiety and Stress Related to Personal and Professional Life - Initiate Cognitive Behavioral Therapy (CBT) sessions once a week to address anxiety and stress management. - Encourage continued journaling as a form of self-reflection and emotional processing. - Assign homework related to CBT techniques and coping strategies. 2. Interpersonal Relationship Issues - Discuss the importance of open communication and setting boundaries in relationships during CBT sessions. - Encourage the patient to have an honest conversation with her friend to address concerns and potentially repair the friendship. 3. Low Self-Esteem and Negative Self-Image - Utilize CBT techniques to challenge and reframe negative messages from the patient's past experiences with parents and ex-. - Encourage the development of a positive self-image and self-compassion. 4. Time Management and Organization Difficulties - Assist the patient in creating a structured daily schedule to balance personal, professional, and self-care activities. - Encourage the patient to prioritize tasks and set realistic goals for daily accomplishments. 5. Overactive Bladder and Incontinence - Continue working with the nurse and using the device for bladder management. - Monitor progress and discuss any concerns during therapy sessions. 6. Weight Management and Smoking Cessation - Encourage the patient to maintain a healthy diet and exercise routine. - Support the patient's decision to quit smoking and discuss potential coping strategies for cravings during therapy sessions. 7. Financial Concerns and Business Expansion - Explore potential avenues for business growth and financial stability during therapy sessions. - Encourage the patient to seek professional financial advice if necessary. Follow-up: - Schedule weekly CBT sessions and monitor the patient's progress in addressing the identified concerns. Adjust the treatment plan as needed based on the patient's progress and any new issues that may arise. 02/20/2024 RAMY (generalized anxiety disorder) (ICD-10 - F41.1) 1. Depression - Continue engaging in Cognitive Behavioral Therapy (CBT) sessions to address depressive symptoms. - Encourage behavioral activation through physical activities like walking, biking, weight lifting, or swimming. - Recommend journaling to challenge and reframe negative thoughts. - Suggest participation in social activities, such as attending a garden club or joining a local library book club, to combat social isolation and boost self-esteem. - Advise practicing mindfulness and reflecting on three positive things at the end of each day to enhance mood. 2. Anxiety - Monitor anxiety levels during CBT sessions, addressing specific triggers or concerns. - Advise limiting exposure to crime stories to reduce anxiety triggers. - Encourage the use of relaxation techniques, including deep breathing exercises and progressive muscle relaxation, for anxiety management. 3. Sleep Disturbances - Encourage establishing a consistent sleep schedule and creating a relaxing bedtime routine. - Recommend reducing screen time before bed, especially avoiding crime stories, to improve sleep quality. - Suggest employing sleep hygiene practices, such as maintaining a cool, dark sleep environment and avoiding caffeine and nicotine before bedtime. 4. Time Management and Organization - Encourage the adoption of the Pomodoro method for pacing daily activities and preventing burnout. - Suggest the use of alarms and reminders for keeping track of appointments and daily tasks. - Recommend creating a calendar for enhanced organization and time management. Follow-up: - Schedule a follow-up appointment for next week to continue CBT and assess progress in managing depression, anxiety, sleep disturbances, and time management. 02/20/2024 Severe episode of recurrent major depressive disorder, without psychotic features (ICD-10 - F33.2) 1. Depression - Continue engaging in Cognitive Behavioral Therapy (CBT) sessions to address depressive symptoms. - Encourage behavioral activation through physical activities like walking, biking, weight lifting, or swimming. - Recommend journaling to challenge and reframe negative thoughts. - Suggest participation in social activities, such as attending a garden club or joining a local [employer] book club, to combat social isolation and boost self-esteem. - Advise practicing mindfulness and reflecting on three positive things at the end of each day to enhance mood. 2. Anxiety - Monitor anxiety levels during CBT sessions, addressing specific triggers or concerns. - Advise limiting exposure to crime stories to reduce anxiety triggers. - Encourage the use of relaxation techniques, including deep breathing exercises and progressive muscle relaxation, for anxiety management. 3. Sleep Disturbances - Encourage establishing a consistent sleep schedule and creating a relaxing bedtime routine. - Recommend reducing screen time before bed, especially avoiding crime stories, to improve sleep quality. - Suggest employing sleep hygiene practices, such as maintaining a cool, dark sleep environment and avoiding caffeine and nicotine before bedtime. 4. Time Management and Organization - Encourage the adoption of the Pomodoro method for pacing daily activities and preventing burnout. - Suggest the use of alarms and reminders for keeping track of appointments and daily tasks. - Recommend creating a calendar for enhanced organization and time management. Follow-up: - Schedule a follow-up appointment for next week to continue CBT and assess progress in managing depression, anxiety, sleep disturbances, and time management. 01/09/2024 RAMY (generalized anxiety disorder) (ICD-10 - F41.1) depression - PHQ score 24 - pt denied suicidal thoughts during assessment plan -increase Effexor from 225 mg daily to 300 mg daily -referal to [facility] therapy services. -encouraged the patient to come into the [facility] walk in clinic if she needs to talk to a therapist immidiatly while waiting to establish longer term therapy services. -encouraged the patient to come into [facility] walk-in clinic if she has any new or worsening depressive symptoms - encoruaged to call crisis hotline or seek emergency services if she has thoughts of suicide or self harm. -follow up in 2 weeks to assess medication effects. anxiety - RAMY score 12 - pt reports feelings of guilt and worthlessness associated with finances - pt reports the depression causes anxiety plan -medication adjustement -referal to therapy services -encouraged the patient to come into [facility] walk in clinic if she needs immediate therapy services. -follow up for medication management in 2 weeks. HTN pt blood pressure elevated plan encouraged the patient to practice anxiety reducing exercises advised the patient to follow up with PCP for blood pressure management. 01/09/2024 Severe episode of recurrent major depressive disorder, without psychotic features (ICD-10 - F33.2) depression - PHQ score 24 - pt denied suicidal thoughts during assessment plan -increase Effexor from 225 mg daily to 300 mg daily -referal to [facility] therapy services. -encouraged the patient to come into the [facility] walk in clinic if she needs to talk to a therapist immidiatly while waiting to establish longer term therapy services. -encouraged the patient to come into [facility] walk-in clinic if she has any new or worsening depressive symptoms - encoruaged to call crisis hotline or seek emergency services if she has thoughts of suicide or self harm. -follow up in 2 weeks to assess medication effects. anxiety - RAMY score 12 - pt reports feelings of guilt and worthlessness associated with finances - pt reports the depression causes anxiety plan -medication adjustement -referal to therapy services -encouraged the patient to come into [facility] walk in clinic if she needs immediate therapy services. -follow up for medication management in 2 weeks. HTN pt blood pressure elevated plan encouraged the patient to practice anxiety reducing exercises advised the patient to follow up with PCP for blood pressure management. 03/16/2024 RAMY (generalized anxiety disorder) (ICD-10 - F41.1) 1. Depression and Dissatisfaction with Current Therapy - She expressed dissatisfaction with current therapist. - Reported feeling more depressed after sessions. - Needs more feedback and conversation during therapy sessions. - Plan: a. Discuss her feedback preferences with therapist b. Encourage her to give therapy another chance. c. Schedule follow-up appointment. 2. Suicidal Ideation - Single episode of suicidal thoughts after a session with therapist. - She thought about driving into oncoming traffic. - Thoughts were gone by the time she got home. - Plan: a. Monitor her mental status closely during future appointments and therapy sessions. b. Encourage her to report any new or worsening suicidal thoughts immediately. c. she denied any suicidal thoughts since the episode and denied any SI currently. 3. Financial Stress and Housing Situation - Experiencing financial stress due to lack of [employer] bookings and problematic tenant. - She reported having only $278 in her account and no current reservations. - Plan: a. Encourage her to seek legal advice regarding eviction procedures if necessary. b. Explore alternative sources of income or financial assistance 4. Spravato Treatment - She approved for Spravato treatment for depression. - Plan: a. Order Spravato and schedule treatment sessions. b. Provide information about treatment process and potential side effects. c. Monitor her response to treatment and adjust plan as needed. d. monitor for continued headaches and hypertension. e. discussed the need to bring clonidine prescription to spravato apts. 5. Smoking Cessation - She reported reduction in smoking to one pack every three days. - Plan: a. Continue to encourage and support her efforts to quit smoking. b. Provide resources and referrals for smoking cessation programs if needed. 6. Pain and Mobility Issues Due to Recent Fall - She reported difficulty lifting arms, turning head, and dressing herself. - Considering going to the emergency room for evaluation. - Plan: a. Recommend consultation with primary care provider for evaluation. b. Suggest ordering x-ray or CT scan if necessary. c. Encourage follow-up with physical therapy as approved. 02/20/2024 Attention deficit hyperactivity disorder (ADHD), unspecified ADHD type (ICD-10 - F90.9) 1. Depression - Continue engaging in Cognitive Behavioral Therapy (CBT) sessions to address depressive symptoms. - Encourage behavioral activation through physical activities like walking, biking, weight lifting, or swimming. - Recommend journaling to challenge and reframe negative thoughts. - Suggest participation in social activities, such as attending a garden club or joining a local [employer] book club, to combat social isolation and boost self-esteem. - Advise practicing mindfulness and reflecting on three positive things at the end of each day to enhance mood. 2. Anxiety - Monitor anxiety levels during CBT sessions, addressing specific triggers or concerns. - Advise limiting exposure to crime stories to reduce anxiety triggers. - Encourage the use of relaxation techniques, including deep breathing exercises and progressive muscle relaxation, for anxiety management. 3. Sleep Disturbances - Encourage establishing a consistent sleep schedule and creating a relaxing bedtime routine. - Recommend reducing screen time before bed, especially avoiding crime stories, to improve sleep quality. - Suggest employing sleep hygiene practices, such as maintaining a cool, dark sleep environment and avoiding caffeine and nicotine before bedtime. 4. Time Management and Organization - Encourage the adoption of the Pomodoro method for pacing daily activities and preventing burnout. - Suggest the use of alarms and reminders for keeping track of appointments and daily tasks. - Recommend creating a calendar for enhanced organization and time management. Follow-up: - Schedule a follow-up appointment for next week to continue CBT and assess progress in managing depression, anxiety, sleep disturbances, and time management. 02/06/2024 Attention deficit hyperactivity disorder (ADHD), unspecified ADHD type (ICD-10 - F90.9) advised to d/c dexmethylphenidate dose of 10 mg in the afternoon r/t elevated BP. 1. Hypertension - Start clonidine 0.1mg once daily for blood pressure and anxiety management, with plan to increase dose if needed. - Monitor blood pressure regularly. - Encourage smoking reduction and healthy lifestyle. - pt has an apt with her PCP for HTN in March. 2. Anxiety - Continue alprazolam 0.5mg as needed (patient reports seldom use). - Clonidine 0.1mg once daily will also help with anxiety management. - Encourage stress reduction techniques and healthy lifestyle. 3. ADHD - Continue dextroamphetamine as prescribed. - Discontinue dextroamphetamine booster (patient not using recently). - Monitor for side effects or worsening symptoms. 4. Depression - Continue venlafaxine 150mg + 75mg as prescribed. - CBT homework assignments printed and provided to patient. - Follow-up in 1 week to monitor progress and provide support. 5. High Cholesterol - Restart pravastatin as prescribed (patient agrees). - Encourage healthy diet, lifestyle, and smoking reduction. 6. Frequent Urination and Nerve Stimulator Issues - Appointment with Dr. Durant (urologist) for evaluation and management. 7. Potential Esketamine Treatment - Control blood pressure before initiating esketamine - Await prior authorization from for Spravato. - Discuss treatment plan and potential side effects once authorized. 8. Smoking Cessation - Encourage smoking reduction and quitting (currently 7-8 cigarettes/day). - Discuss potential cessation aids and support if needed. 9. Social Stressors - Encourage setting boundaries with house guests and healthy living environment. - Provide support and resources for stress management and mental health. 10. Follow-Up - Schedule follow-up in 1 week to monitor progress and medication effectiveness. 01/23/2024 Attention deficit hyperactivity disorder (ADHD), unspecified ADHD type (ICD-10 - F90.9) Major Depressive Disorder - Patient reports persistent depression since 2007, with multiple failed antidepressant trials including Zoloft and Bupropion. - Patient expresses feeling sick of my life and sometimes questions her purpose. - decrease Bupropion back to original dose (was increased at last visit) related to reported side effects with the dose increase. - Plan: Discuss initiating Spravato (esketamine) nasal spray treatment, requiring twice-weekly clinic visits for 2-hour sessions. Monitor blood pressure and ensure transportation post-treatment. Obtain insurance approval and complete necessary paperwork. 2. Attention Deficit Hyperactivity Disorder (ADHD) - Patient is currently on Focalin XR 30mg and Focalin 10mg (non-XR), which she takes occasionally. - Patient reports needing additional medication around 1PM when getting up at 4:30AM. - Plan: Discuss refill on Focalin 30mg prescription with primary care provider when they return from vacation. 3. Anxiety - Patient is taking alprazolam (Xanax) as needed for anxiety from her PCP. - Patient reports recent Xanax use while in bed due to anxiety. - Plan: Continue current medication regimen and monitor for anxiety level changes. 4. Insomnia - Patient reports difficulty falling/staying asleep, with frequent night awakenings. - Patient mentions falling asleep at 6:30PM and waking at 4:30AM, with 3AM awakenings. - Plan: Encourage good sleep hygiene like consistent schedule and no TV at night. Reassess during follow-ups and consider further evaluation/treatm ent if needed. 5. Hypertension - Patient reports history of TIA, with generally regular blood pressure readings. -Blood pressure has been elevated at each visit to the [facility] walk-in clinic. 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 plan - Make an appointment with PCP once they return from their vacation to initiate medication for hypertension. - Esketamine treatment can not be initiated until the patient has stable blood pressure readings. SPRAVATO is contraindicated in patients with: Aneurysmal vascular disease (including thoracic and abdominal aorta, intracranial and peripheral arterial vessels) or arteriovenous malformation _ History of intracerebral hemorrhage _ Hypersensitivity to Esketamine, ketamine, or any of the ingredients _ UNCONTROLLED HYPERTENSION _ Hypertension is not an absolute contraindication patient does not have a history of Aneurysmal vascular disease -she does have a history of a TIA (non hemorrhage) - No history of intracerebral hemorrhage - no known history of or Hypersensitivity to Esketamine, ketamine, or any of the ingredients 07/19/2024 Benign essential HTN (ICD-10 - I10) 08/09/2024 Encounter for screening for cardiovascular disorders (ICD-10 - Z13.6) 08/09/2024 RAMY (generalized anxiety disorder) (ICD-10 - F41.1) 02/20/2024 Nicotine use (ICD-10 - Z72.0) 1. Depression - Continue engaging in Cognitive Behavioral Therapy (CBT) sessions to address depressive symptoms. - Encourage behavioral activation through physical activities like walking, biking, weight lifting, or swimming. - Recommend journaling to challenge and reframe negative thoughts. - Suggest participation in social activities, such as attending a garden club or joining a local library book club, to combat social isolation and boost self-esteem. - Advise practicing mindfulness and reflecting on three positive things at the end of each day to enhance mood. 2. Anxiety - Monitor anxiety levels during CBT sessions, addressing specific triggers or concerns. - Advise limiting exposure to crime stories to reduce anxiety triggers. - Encourage the use of relaxation techniques, including deep breathing exercises and progressive muscle relaxation, for anxiety management. 3. Sleep Disturbances - Encourage establishing a consistent sleep schedule and creating a relaxing bedtime routine. - Recommend reducing screen time before bed, especially avoiding crime stories, to improve sleep quality. - Suggest employing sleep hygiene practices, such as maintaining a cool, dark sleep environment and avoiding caffeine and nicotine before bedtime. 4. Time Management and Organization - Encourage the adoption of the Pomodoro method for pacing daily activities and preventing burnout. - Suggest the use of alarms and reminders for keeping track of appointments and daily tasks. - Recommend creating a calendar for enhanced organization and time management. Follow-up: - Schedule a follow-up appointment for next week to continue CBT and assess progress in managing depression, anxiety, sleep disturbances, and time management. 02/06/2024 Primary hypertension (ICD-10 - I10) Discussed low salt diet. discussed the effects of smoking on HTN and advised to decrease/stop smoking. discussed CBT treatment for anxiety. discussed compliance with statin medication, as uncontrolled cholesterol + HTN + smoking= increases risk of stroke. instructed the patient to go to scheduled apt (in march) with PCP about elevated blood pressure. educated the patient that her blood pressure needs to be controlled before we can initiate spravato treatments. 1. Hypertension - Start clonidine 0.1mg once daily for blood pressure and anxiety management, with plan to increase dose if needed. - Monitor blood pressure regularly. - Encourage smoking reduction and healthy lifestyle. - pt has an apt with her PCP for HTN in March. 2. Anxiety - Continue alprazolam 0.5mg as needed (patient reports seldom use). - Clonidine 0.1mg once daily will also help with anxiety management. - Encourage stress reduction techniques and healthy lifestyle. 3. ADHD - Continue dextroamphetamine as prescribed. - Discontinue dextroamphetamine booster (patient not using recently). - Monitor for side effects or worsening symptoms. 4. Depression - Continue venlafaxine 150mg + 75mg as prescribed. - CBT homework assignments printed and provided to patient. - Follow-up in 1 week to monitor progress and provide support. 5. High Cholesterol - Restart pravastatin as prescribed (patient agrees). - Encourage healthy diet, lifestyle, and smoking reduction. 6. Frequent Urination and Nerve Stimulator Issues - Appointment with Dr. Durant (urologist) for evaluation and management. 7. Potential Esketamine Treatment - Control blood pressure before initiating esketamine - Await prior authorization from for Spravato. - Discuss treatment plan and potential side effects once authorized. 8. Smoking Cessation - Encourage smoking reduction and quitting (currently 7-8 cigarettes/day). - Discuss potential cessation aids and support if needed. 9. Social Stressors - Encourage setting boundaries with house guests and healthy living environment. - Provide support and resources for stress management and mental health. 10. Follow-Up - Schedule follow-up in 1 week to monitor progress and medication effectiveness. 01/23/2024 Primary hypertension (ICD-10 - I10) Major Depressive Disorder - Patient reports persistent depression since 2007, with multiple failed antidepressant trials including Zoloft and Bupropion. - Patient expresses feeling sick of my life and sometimes questions her purpose. - decrease Bupropion back to original dose (was increased at last visit) related to reported side effects with the dose increase. - Plan: Discuss initiating Spravato (esketamine) nasal spray treatment, requiring twice-weekly clinic visits for 2-hour sessions. Monitor blood pressure and ensure transportation post-treatment. Obtain insurance approval and complete necessary paperwork. 2. Attention Deficit Hyperactivity Disorder (ADHD) - Patient is currently on Focalin XR 30mg and Focalin 10mg (non-XR), which she takes occasionally. - Patient reports needing additional medication around 1PM when getting up at 4:30AM. - Plan: Discuss refill on Focalin 30mg prescription with primary care provider when they return from vacation. 3. Anxiety - Patient is taking alprazolam (Xanax) as needed for anxiety from her PCP. - Patient reports recent Xanax use while in bed due to anxiety. - Plan: Continue current medication regimen and monitor for anxiety level changes. 4. Insomnia - Patient reports difficulty falling/staying asleep, with frequent night awakenings. - Patient mentions falling asleep at 6:30PM and waking at 4:30AM, with 3AM awakenings. - Plan: Encourage good sleep hygiene like consistent schedule and no TV at night. Reassess during follow-ups and consider further evaluation/treatm ent if needed. 5. Hypertension - Patient reports history of TIA, with generally regular blood pressure readings. -Blood pressure has been elevated at each visit to the [facility] walk-in clinic. 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 plan - Make an appointment with PCP once they return from their vacation to initiate medication for hypertension. - Esketamine treatment can not be initiated until the patient has stable blood pressure readings. SPRAVATO is contraindicated in patients with: Aneurysmal vascular disease (including thoracic and abdominal aorta, intracranial and peripheral arterial vessels) or arteriovenous malformation _ History of intracerebral hemorrhage _ Hypersensitivity to Esketamine, ketamine, or any of the ingredients _ UNCONTROLLED HYPERTENSION _ Hypertension is not an absolute contraindication patient does not have a history of Aneurysmal vascular disease -she does have a history of a TIA (non hemorrhage) - No history of intracerebral hemorrhage - no known history of or Hypersensitivity to Esketamine, ketamine, or any of the ingredients 01/23/2024 Adult ADHD (ICD-10 - F90.9) Major Depressive Disorder - Patient reports persistent depression since 2007, with multiple failed antidepressant trials including Zoloft and Bupropion. - Patient expresses feeling sick of my life and sometimes questions her purpose. - decrease Bupropion back to original dose (was increased at last visit) related to reported side effects with the dose increase. - Plan: Discuss initiating Spravato (esketamine) nasal spray treatment, requiring twice-weekly clinic visits for 2-hour sessions. Monitor blood pressure and ensure transportation post-treatment. Obtain insurance approval and complete necessary paperwork. 2. Attention Deficit Hyperactivity Disorder (ADHD) - Patient is currently on Focalin XR 30mg and Focalin 10mg (non-XR), which she takes occasionally. - Patient reports needing additional medication around 1PM when getting up at 4:30AM. - Plan: Discuss refill on Focalin 30mg prescription with primary care provider when they return from vacation. 3. Anxiety - Patient is taking alprazolam (Xanax) as needed for anxiety from her PCP. - Patient reports recent Xanax use while in bed due to anxiety. - Plan: Continue current medication regimen and monitor for anxiety level changes. 4. Insomnia - Patient reports difficulty falling/staying asleep, with frequent night awakenings. - Patient mentions falling asleep at 6:30PM and waking at 4:30AM, with 3AM awakenings. - Plan: Encourage good sleep hygiene like consistent schedule and no TV at night. Reassess during follow-ups and consider further evaluation/treatm ent if needed. 5. Hypertension - Patient reports history of TIA, with generally regular blood pressure readings. -Blood pressure has been elevated at each visit to the [facility] walk-in clinic. 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 plan - Make an appointment with PCP once they return from their vacation to initiate medication for hypertension. - Esketamine treatment can not be initiated until the patient has stable blood pressure readings. SPRAVATO is contraindicated in patients with: Aneurysmal vascular disease (including thoracic and abdominal aorta, intracranial and peripheral arterial vessels) or arteriovenous malformation _ History of intracerebral hemorrhage _ Hypersensitivity to Esketamine, ketamine, or any of the ingredients _ UNCONTROLLED HYPERTENSION _ Hypertension is not an absolute contraindication patient does not have a history of Aneurysmal vascular disease -she does have a history of a TIA (non hemorrhage) - No history of intracerebral hemorrhage - no known history of or Hypersensitivity to Esketamine, ketamine, or any of the ingredients 02/06/2024 Nicotine use (ICD-10 - Z72.0) 1. Hypertension - Start clonidine 0.1mg once daily for blood pressure and anxiety management, with plan to increase dose if needed. - Monitor blood pressure regularly. - Encourage smoking reduction and healthy lifestyle. - pt has an apt with her PCP for HTN in March. 2. Anxiety - Continue alprazolam 0.5mg as needed (patient reports seldom use). - Clonidine 0.1mg once daily will also help with anxiety management. - Encourage stress reduction techniques and healthy lifestyle. 3. ADHD - Continue dextroamphetamine as prescribed. - Discontinue dextroamphetamine booster (patient not using recently). - Monitor for side effects or worsening symptoms. 4. Depression - Continue venlafaxine 150mg + 75mg as prescribed. - CBT homework assignments printed and provided to patient. - Follow-up in 1 week to monitor progress and provide support. 5. High Cholesterol - Restart pravastatin as prescribed (patient agrees). - Encourage healthy diet, lifestyle, and smoking reduction. 6. Frequent Urination and Nerve Stimulator Issues - Appointment with Dr. Durant (urologist) for evaluation and management. 7. Potential Esketamine Treatment - Control blood pressure before initiating esketamine - Await prior authorization from for Spravato. - Discuss treatment plan and potential side effects once authorized. 8. Smoking Cessation - Encourage smoking reduction and quitting (currently 7-8 cigarettes/day). - Discuss potential cessation aids and support if needed. 9. Social Stressors - Encourage setting boundaries with house guests and healthy living environment. - Provide support and resources for stress management and mental health. 10. Follow-Up - Schedule follow-up in 1 week to monitor progress and medication effectiveness. 08/09/2024 Severe episode of recurrent major depressive disorder, without psychotic features (ICD-10 - F33.2) 08/09/2024 Benign essential HTN (ICD-10 - I10) 08/09/2024 Nicotine use (ICD-10 - Z72.0) 08/09/2024 Other referral to the local chapter or national office of the Alzheimer's Association ( ; http://www.alz.org) , the Alzheimer's Disease Education [facility] Referral [facility] ([facility]) ( ; http://www.janes.nih. gov/Alzheimers/), 07/19/2024 Other 1. Depression and Anxiety - Resubmit Spravato treatment to insurance. - Schedule follow-up appointment with SHEREE Cohen - Place patient on waiting list for a therapist at [facility]. - Continue current medications - encouraged continued therapy 2. Cognitive Concerns - SLUMS score of 27 - Monitor cognitive function 3. Sleep Disturbances - Encourage good sleep hygiene practices. - Assess for potential medication adjustments if sleep issues persist. 4. Financial Stressors - Explore potential resources and support for financial assistance. - Address financial concerns during therapy sessions. - encouraged continued therapy 5. Suicide Risk - Patient denied current thoughts of suicide or self-harm. - reported having fleeting thoughts of SI without plan/intent last week. - Reinforce crisis prevention hotline number (307) and crisis intervention plan. - Monitor for any changes in suicidal ideation during follow-up appointments. - discussed when to seek emergency services 6. Medication Management - Review and update medication list during follow-up appointments. - Assess for potential side effects or interactions. - Discuss concerns about tofacitinib use. 7. Smoking Cessation - Encourage continued efforts to quit smoking. - Provide support and resources for smoking cessation. 01/09/2024 Other Learning About Depression Screening material was printed depression - PHQ score 24 - pt denied suicidal thoughts during assessment plan -increase Effexor from 225 mg daily to 300 mg daily -referal to [facility] therapy services. -encouraged the patient to come into the [facility] walk in clinic if she needs to talk to a therapist immidiatly while waiting to establish longer term therapy services. -encouraged the patient to come into [facility] walk-in clinic if she has any new or worsening depressive symptoms - encoruaged to call crisis hotline or seek emergency services if she has thoughts of suicide or self harm. -follow up in 2 weeks to assess medication effects. anxiety - RAMY score 12 - pt reports feelings of guilt and worthlessness associated with finances - pt reports the depression causes anxiety plan -medication adjustement -referal to therapy services -encouraged the patient to come into [facility] walk in clinic if she needs immediate therapy services. -follow up for medication management in 2 weeks. HTN pt blood pressure elevated plan encouraged the patient to practice anxiety reducing exercises advised the patient to follow up with PCP for blood pressure management. Plan Of Treatment Pending Test Test Name Order Date UDT 01/09/2024 Insurance Providers Payer Name Payer Address Payer Phone Subscriber Number Group Number Insured Name Patient Relationship to Insured Coverage Start Date Coverage End Date [employer] Medicare Replacement/ Advantage - [place] [address] [address] [place] [address] [id number] JING WHITE Self - patient is the insured Medical (General) History Medical History History ICD Code hyperlipidemia gastroesophageal reflux disease vitamin D deficiency hypertension Surgical History Surgery Date(Month/Year) Breast surgery (98266) 08/24/1968 Other 10/24/1976 nerve stimulator
--- OUTSIDE RECORDS SUMMARY | 2024-08-09 14:31 | XMS_ITS | Encounter Summary ---
Author Organization [facility] Facility Care Team Providers Care Gravel Weigher Name Role Phone Pat Alexandre MD Primary Care Provider Paris BordenW Unavailable [phone] Ana Luisa Burton RN Unavailable [phone] No, Physician Primary Care Provider [phone] Encounter Details Date Type Department Care Team (Latest Contact Info) Description 07/11/2016 Orders Only [facility] Provider, MD Lindsay [address] [place] [id number] Social History Tobacco Use Types Packs/Day Years Used Date Smoking Tobacco: Never Assessed Comments Unknown Sex and Gender Information Value Date Recorded Sex Assigned at Not on file Legal 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 Historical Provider Final Res ult documented in this encounter Visit Diagnoses Not on filedocumented in this encounter Additional Health Concerns Infection Onset Date Last Indicated Resolved Time COVID: Suspected 02/14/2020 02/14/2020 02/15/2020 6:26 PM CDT Respiratory Infection (JEANNINE), contact + droplet Comment:Automatically added due to negative COVID-19 result. 02/15/2020 02/15/2020 02/29/2020 3:0 6 AM CDT documented as of this encounter Care Teams Gravel Weigher Relationship Specialty Start Date End Date Pat Alexandre MD PCP - General Internal Medicine 09/23/18 07/16/21 No, Physician PCP - General 09/04/21 Paris Borden, MACHINES TECHNICIAN [address] [place] [address] [address] [place], [place] [phone] Corporate Trust Officer 04/23/21 05/22/21 Ana Luisa Burton, TEMITOPE [address] [place] [address] [address] [place] [address] Corporate Trust Officer 05/23/21 05/30/21 documented as of this encounter
--- OUTSIDE RECORDS SUMMARY | 2024-08-09 14:31 | XMS_ITS | Clinical Summary ---
Author Organization [facility] al Address [address] [place] [address] Care Team Providers Care Software Quality Test Engineer Name Role Phone No, Physician Primary Care Provider [phone] Allergies Active Allergy Reactions Criticality Noted Date Comments Fluoxetine Unknown 11/11/2017 Varenicline Other (See comments) Low 02/08/2014 depression Venlafaxine Other (See comments) Low 08/07/2017 Confusion Bupropion Unknown 11/11/2017 Sertraline Unknown 11/11/2017 Medications pravastatin (PRAVACHOL) 20 mg tabletIndications: Hyperlipidemia, unspecified hyperlipidemia type Take 1 tablet (20 mg total) by mouth daily 90 tablet 3 07/25/19 21 Active Additional Information Patient taking differently:20 mg oral Daily,Last dose 5 months ago, Reported on 04/26/2021 busPIRone (BUSPAR) 5 mg tabletIndications: Generalized Anxiety Disorder Take 1 tablet (5 mg total) by mouth 2 (two) times a day 180 tablet 1 12/14/19 21 Active Additional Information Patient taking differently:5 mg oral 2 times daily,Last quiñonez 6 years ago, Indications: Generalized Anxiety Disorder, Informant: Self, Reported on 04/26/2021 oxybutynin (DITROPAN) 5 mg tabletIndications: Urinary incontinence, unspecified type Take 1 tablet (5 mg total) by mouth 2 (two) times a day 180 tablet 1 02/01/20 21 Active Additional Information Patient taking differently:5 mg oral 2 times daily,Indications: Bladder Hyperactivity, Informant: Self, Reported on 04/26/2021 NON FORMULARY, FOR INPATIENT USE, Take 1 Dose by mouth macca powder Active elderberry fruit and flower 460-115 mg capsule Take 1 capsule by mouth Active omeprazole (PriLOSEC) 20 mg capsuleIndications :Treatment of Non-Bleeding Gastric Disorder Take 1 capsule (20 mg total) by mouth daily 90 capsule 04/27/20 21 Active ALPRAZolam (XANAX) 0.5 mg tabletIndications: anxiety Take 1 tablet (0.5 mg total) by mouth 3 (three) times a day as needed for anxiety (prn) 90 tablet 04/27/20 21 Active venlafaxine XR (EFFEXOR-XR) 150 mg 24 hr capsuleIndications :Depression with anxiety Take 1 capsule by mouth once daily 90 capsule 04/27/20 21 Active venlafaxine XR (EFFEXOR-XR) 75 mg 24 hr capsuleIndications :Depression with anxiety Take 1 capsule by mouth once daily 90 capsule 04/27/20 21 Active dexmethylphenidate XR (FOCALIN XR) 30 mg 24 hr capsuleIndications :Attention-Deficit Hyperactivity Disorder Take 1 capsule (30 mg total) by mouth daily 30 capsule 04/27/20 21 Active dexmethylphenidate (FOCALIN) 10 mg tabletIndications: Attention-Deficit Hyperactivity Disorder 1 tablet by mouth in the afternoon (in addition to 30 mg XR in AM) 30 tablet 04/27/20 21 Active HYDROcodone-acetam inophen (NORCO) 5-325 mg per tabletIndications: Pain Take 1-2 tablets by mouth every 4 (four) hours as needed for pain for up to 40 doses 40 tablet 04/30/20 21 Active brexpiprazole (REXULTI) 0.5 mg tablet Take 0.5 mg by mouth daily 08/22/19 22 Active fluticasone propionate (FLONASE) 50 mcg/actuation nasal spray Administer 1 spray into affected nostril(s) daily 08/26/19 22 Active metFORMIN (GLUCOPHAGE) 500 mg tablet Take 500 mg by mouth daily 08/24/19 22 Active Active Problems Problem Noted Date Diagnosed Date Closed fracture of shaft of left humerus 021 Overview (04/26/2021): Added automatically from request for surgery [id number] Abnormal weight gain 05/17/2019 BMI 27.0-27.9,adult 05/17/2019 Other hyperlipidemia 10/01/2018 Depression with anxiety 06/09/2018 Microscopic hematuria 06/01/2018 Smoker 03/28/2017 Intractable migraine without aura and without status migrainosus 08/09/2016 Cervicalgia 08/09/2016 Thyroid nodule 06/24/2016 Attention deficit disorder of adult with hyperac tivity 12/25/2015 Benign essential hypertension 11/24/2015 ADHD (attention deficit hype ractivity disorder), combined type 06/03/2013 Osteopenia 03/24/2013 Resolved Problems Problem Noted Date Diagnosed Date Resolved Date Chronic maxillary sinusitis 05/14/2017 12/08/2018 Right-sided muscle weakness 11/19/2016 12/08/2018 Immunizations Immunization Administration Dates Next Due Influenza, Unspecified 02/23/2018(Deferred: Carla ent Refused) Pneumococcal Conjugate PCV 13 01/07/2021, 019 ZOSTER Recombinant 01/07/2021 Surgical History Surgery Date Site/Laterality Comments [place] SALPINGO-OOPHORECTOMY COM PL/PRTL UNI/BI SPX Salpingo-oophorectomy Bilateral - (Added by TW Conv) [place] ENTEROSCOPY > 2ND PRTN W/ RMVL LESION SNARE Enteroscopic Polypectomy - (Added by TW Conv) [place] UNLISTED PROCEDURE LUNGS & PLEURA Lung Surgery - (Added by TW Conv) [facility] DEXA SCAN BREAST BIOPSY 06/15/2015 Right ESOPHAGOGASTRODUODENOSCOPY COLONOSCOPY LUNG SURGERY 05/26/1975 - 05/25/1976 ? bleb/bullae HYSTERECTOMY ~ 1979 Total Hysterectomy - (Added by TW Conv) WISDOM TOOTH EXTRACTION Medical History Medical History Date Comments Personal history of traumati c brain injury History of traumatic brain i njury - (Added by TW Conv) Personal history of other di seases of the digestive system History of diverticulitis of colon - (Added by TW Conv) Hyperlipidemia Anxiety Depression ADD (attention deficit disorder) Emphysema of lung (HCC) [place] ([place]) Osteopenia Awareness under anesthesia 1975 patie nt aware during surgery, tried to wiggle toes to get team's attention & opened eyes, heard surgical team say oh she's awake ; does not recall tube in throat, Cardiac complication 1975 heart stop ped as per patient's insurance provider Tobacco abuse Family History Medical History Relation Name Comments Lung cancer Mother Family history of lung cancer - (Added by TW Conv) Lung cancer Paternal Grandmother Family history of lung cancer - (Added by TW Conv) Urinary congenital defect Son Relation Name Status Comments Father Mother (Age 67 ) Paternal Grandmother Son Alive Social History Tobacco Use Types Packs/Day Years Used Date Smoking Tobacco: Every Day Cigarettes 0.3 61.3 Started: 04/26/1962 Smokeless Tobacco: Never Tobacco Cessation:Ready to Q uit: Yes; Counseling Given: Yes Comments:working towards quitting; former 1 ppd Alcohol Use Standard Drinks/Week Comments Never 0 (1 standard drink = 0.6 oz pur e alcohol) AUDIT-C Answer Date Recorded Q1: How often do you have a drink containing alc ohol? Never 04/30/2021 Q2: How many drinks containi ng alcohol do you have on a typical day when you are drinking? 1 or 2 04/30/2021 Q3: How often do you have six or more drinks on one occasion? Never 04/30/2021 Overall Financial Resource Strain (CARDIA) Answe r Date Recorded How hard is it for you to pa y for the very basics like food, housing, medical care, and heating? Not very hard 04/23/2021 PHQ-2 Answer Date Recorded PHQ-2 Total Score (If total score is 3 or more points, staff should administer the PHQ-9) 5 12/13/2020 PRAPARE - Transportation Answer Date Re corded In the past 12 months, has l ack of transportation kept you from medical appointments or from getting medications? No 03/27 In the past 12 months, has l ack of transportation kept you from meetings, work, or from getting things needed for daily living? No 04/23/2021 Housing Stability Vital Sign Answer Martin e Recorded In the last 12 months, was t here a time when you were not able to pay the mortgage or rent on time? No 04/23/2021 In the last 12 months, how many places have you lived? 1 04/23/2021 In the last 12 months, was t here a time when you did not have a steady place to sleep or slept in a snf (including now)? 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 SUPERVISOR/PORT DIRECTOR Gender Identity Female 01/30/2021 4:42 PM CDT Sexual Orientation Straight 01/30/2021 4: 41 PM CDT Obstetrics History Para Term AB IAB SAB Ectopic Multiple Livin g Live Births 1 Date Outcome GA Total Labor Labor/2nd/3rd Weight Sex Type Anes PTL Alexa A1 A5 Name Clin Last Filed Vital Signs Vital Sign Reading Time Taken Comments Blood Pressure 122/107 04/30/2021 6:30 PM SUPERVISOR/PORT DIRECTOR patient moving her arm Pulse 84 04/30/2021 6:40 PM SUPERVISOR/PORT DIRECTOR Temperature 37 C (98.6 F) 04/30/2021 6:40 PM SUPERVISOR/PORT DIRECTOR Respiratory Rate 11 04/30/2021 6:40 PM SUPERVISOR/PORT DIRECTOR Oxygen Saturation 95% 04/30/2021 6:4 0 PM SUPERVISOR/PORT DIRECTOR Inhaled Oxygen Concentration - - Weight 73.2 kg (161 lb 6 oz) 04/26/2021 3:20 PM SUPERVISOR/PORT DIRECTOR Height 162.6 cm (5' 4 ) 04/26/2021 3:20 PM SUPERVISOR/PORT DIRECTOR Body Mass Index 27.7 04/26/2021 3:20 PM SUPERVISOR/PORT DIRECTOR Plan of Treatment Health Maintenance Due Date Last Done Comments DTaP/Tdap/Td Vaccine (1 - Tdap) 1956 Hepatitis B Screening 1963 Well Visit 65+ 12/21/2020 12/22/2019 Pneumococcal vaccine 65+ (2 of 2 - PPSV23) 03/04/2021 01/07/2021, 05/12/2019 Zoster Vaccine (2 of 2) 03/04/2021 01/07/2021 Depression Screening 12/13/2021 12/13/2020, 12/13/2020, 07/13/2020, Additional history exists Fall Risk Assessment 04/30/2022 04/30/2021, 12/22/2019, 05/12/2019 Osteoporosis Screening-Bone Density Scan 02/06/2023 02/06/2021, 05/23/2015 Influenza Vaccine (#1) 2024 Colon Cancer Screening-CT Colonography Discontinued 01/25/2019 Colon Cancer Screening-Colonoscopy Discontinued 01/25/2019 Colon Cancer Screening-DNA Stool Discontinued 01/26/20 Colon Cancer Screening-FIT Discontinued 01/25/2019 Colon Cancer Screening-FOBT Discontinued 01/25/2019 Colon Cancer Screening-Sigmoidoscopy Discontinued 01/25/2019 Colorectal Cancer Screening Discontinued Hepatitis C Screening Completed 12/22/2019 Breast Cancer Screening-Mammogram Discontinued 021, 05/23/2015 Medical Devices Implanted Type Area Regional Engagement Consultant Device Identifier Shelf Expiration Date Model / Serial / Lot [employer]o [id number] Evos 152mm 12 Hole Compression Plate Bone Sterile 3.5mm Screw - [id number] Implanted:Qty: 1 on 04/30/2021 by Ophelia Del Valle MD at [facility] Plate Left: Humerus [employer] tho [id number] / / [employer] [id number] Evos 127mm 15 Hole Compression Plate Bone Sterile 2.7mm Screw - [id number] Implanted:Qty: 1 on 04/30/2021 by Ophelia Del Valle MD at [facility] Plate Left: Humerus [employer] tho [id number] / / [employer]o [id number] 2.7mm 4.5mm 20mm Self Retaining Screwdriver Self Tap Flat Head - [id number] Implanted:Qty: 3 on 04/30/2021 by Ophelia Del Valle MD at [facility] Screw Left: Humerus [employer] tho [id number] / / [employer]o [id number] 2.7mm 4.5mm 19mm Self Tap Cortex T8 2mm Screw Bone Evos - [id number] Implanted:Qty: 2 on 04/30/2021 by Ophelia Del Valle MD at [facility] Screw Left: Humerus [employer] tho [id number] / / [employer] [id number] Evos 2.7mm 4.5mm 18mm Self Tap Cortex T8 Screw Bone Nonsterile - [id number] Implanted:Qty: 1 on 04/30/2021 by Ophelia Del Valle MD at [facility] Screw Left: Humerus [employer] tho [id number] / / [employer] [id number] Evos 3.5mm 18mm Self Tap Cortex Screw Bone Sterile - [id number] Implanted:Qty: 5 on 04/30/2021 by Ophelia Del Valle MD at [facility] Screw Left: Humerus [employer] tho [id number] / / [employer] [id number] Evos 3.5mm 19mm Self Tap Cortex Screw Bone Sterile - [id number] Implanted:Qty: 1 on 04/30/2021 by Ophelia Del Valle MD at [facility] Screw Left: Humerus [employer] tho [id number] / / Procedures Procedure Name Priority Date/Time Associated Diagnosis Comments SCREENING MAMMOGRAM BILATERAL W VAZQUEZ Schedule Routine, Read Routine (OP Routine) 02/06/2021 9:24 AM CDT Encounter for screening for malignant neoplasm of breast, unspecified screening modality DEXA AXIAL SKELETON BONE DENSITY 1 OR MORE SITES Schedule Routine, Read Routine (OP Routine) 02/06/2021 9:15 AM CDT Postmenopausal HEPATITIS C ANTIBODY Routine 12/22/2019 9:26 AM CDT Need for hepatitis C screening test HM COLONOSCOPY Routine 01/25/2019 from Last 3 Months or Most Recently Relevant to Health Maintenance Results * SCREENING MAMMOGRAM BILATERAL W VAZQUEZ (02/06/2021 9:24 AM CDT) Anatomical Region Laterality Modality Breast Bilateral Mammography Impressions 02/06/2021 9:53 AM CDT BI-RADS ATLAS category (overall): 1 Negative There is no mammographic evidence of malignancy. A 1 year screening mammogram is recommended. The patient has been or will be contacted. We recommend annual screening mammography for women at average risk of breast cancer beginning at age 40, based on guidelines of the [place] [employer] (ACR Practice Parameter for the Performance of Screening and Diagnostic Mammography) and [place] [employer]. For women with and elevated risk of breast cancer, please refer to the ACR Practice Parameter for specific screening recommendations. The patient will be entered into a reminder system with a target due date of 1 year for her next screening exam. Narrative 02/06/2021 9:53 AM CDT SCREENING MAMMOGRAM BILATERAL W VAZQUEZ: 02/06/21 The study was acquired using full field digital technology and interpreted from soft copy. 2D digital mammographic views, as well as 3D digital tomosynthesis were performed in the CC and MLO projections. CLINICAL: Encounter for screening for malignant neoplasm of breast, unspecified screening modality Medical history includes hypertension. No known family history of breast cancer. COMPARISONS: 06/15/2015 US Guided Breast Biopsy Right 05/25/2015 Diagnostic Mammogram 2D Right 05/25/2015 US Breast Right Complete 05/23/2015 Screening Mammogram Bilateral W Vazquez BREAST TISSUE: The breasts have scattered areas of fibroglandular density. FINDINGS: No suspicious masses, suspicious calcifications, or other suspicious findings are seen within either breast. There has been no suspicious change. Procedure Note Eddie Carbajal MD - 02/06/2021 SCREENING MAMMOGRAM BILATERAL W VAZQUEZ: 02/06/21 The study was acquired using full field digital technology and interpretedfrom soft copy. 2D digital mammographic views, as well as 3D digitaltomosynthesis were performed in the CC and MLO projections. CLINICAL: Encounter for screening for malignant neoplasm of breast,unspecified screening modality Medical history includes hypertension. N[place]nown family history of breast cancer. COMPARISONS: 06/15/2015 US Guided Breast Biopsy Right 05/25/2015 Diagnostic Mammogram 2D Right 05/25/2015 US Breast Right Complete 05/23/2015 Screening Mammogram Bilateral W Vazquez BREAST TISSUE: The breasts have scattered areas of fibroglandular density. FINDINGS: No suspicious masses, suspicious calcifications, or othersuspicious findings are seen within either breast. There has been nosuspicious change. IMPRESSION: BI-RADS ATLAS category (overall): 1 Negative There is no mammographic evidence of malignancy. A 1 year screeningmammogram is recommended. The patient has been or will be contacted. We recommend annual screening mammography for women at average risk ofbreast cancer beginning at age 40, based on guidelines of the AmericanCollege of Radiology (ACR Practice Parameter for the Performance ofScreening and Diagnostic Mammography) and [place] [employer] of[employer]nec[employer]. For women with and elevated risk ofbreast cancer, please refer to the ACR Practice Parameter for specificscreening recommendations. The patient will be entered into a reminder system with a target due dateof 1 year for her next screening exam. us Pat Alexandre MD IMG MAMMO PRO CEDURES Final Result * Dexa Axial Skeleton Bone Density 1 or 2 Site (02/06/2021 9:15 AM CDT) Anatomical Region Laterality Modality Body N/A Mammography 02/07/2021 8:44 AM CDT Narrative 02/07/2021 8:45 AM CDT EXAM DESCRIPTION: DEXA AXIAL SKELETON BONE DENSITY 1 OR MORE SITES REASON FOR STUDY: 75 y/o year old F with given history of screening. Regional Engagement Consultant/Model: [employer] A (S/N [id number]) CLINICAL INFORMATION: Current height: 62.5 inches Maximum height: 64 inches Weight: 157 pounds Risk factors: Postmenopausal COMPARISON: None available. FINDINGS: AP LUMBAR SPINE L1-L4: Total BMD is 0.877 g/cm2 T-score is -1.5 LEFT HIP: Total BMD is 0.844 g/cm2 T-score is -0.8 Femoral neck BMD is 0.644 g/cm2 T-score is -1.8 IMPRESSION: Based on the left femoral neck bone mineral density (T-score -1.8) the patient has low bone mass. Fracture risk assessment (FRAX): 10 year risk for a major osteoporotic fracture is 12 % 10 year risk for a hip fracture is 2.6 % The FRAX tool has not been validated in patients currently or previously treated with pharmacotherapy for osteoporosis. In such patients, clinical judgement must be exercised in interpreting FRAX scores as the fracture risk may be overestimated. REFERENCE: Bone mineral density: Normal (T-score above or = -1.0) Low bone mass (T-score between -1.0 and -2.5) replaces the previously used term osteopenia Osteoporosis (T-score = or below -2.5) Medical evaluation for secondary causes of low bone mineral density may be appropriate. FRAX is a World Health Organization validated fracture risk assessment tool that calculates a person's 10 year probability of a major osteoporosis related fracture and hip fracture. According to the National Osteoporosis Foundation guidelines, postmenopausal women and men age 50 or older with low bone mass and a 10 year probability of a major osteoporosis related fracture = or greater than 20% or a 10 year probability of a hip fracture = or greater than 3% should be considered for treatment. For further information, including treatment recommendations, please refer to the 2013 ISCD Official Positions (http://www.iscd.org) and the NOF's Clinician's Guide to Prevention and Treatment of Osteoporosis (http://www.nof.org/professionals/clinical-guidelines) THIS IS AN ELECTRONICALLY VERIFIED FINAL REPORT 02/07/2021 8:45 AM - Electronically signed by Shalom Rowley M.D. T: Report ID: [id number] Reading Location: [place] [address] Procedure Note Shalom Rowley MD - 02/07/2021 EXAM DESCRIPTION: DEXA AXIAL SKELETON BONE DENSITY 1 OR MORE SITES REASON FOR STUDY: 75 y/o year old F with given history ofscreening. Regional Engagement Consultant/Model: [employer] A (S/N [id number]) CLINICAL INFORMATION: Current height: 62.5 inches Maximum height: 64 inches Weight: 157 pounds Risk factors: Postmenopausal COMPARISON: None available. FINDINGS: AP LUMBAR SPINE L1-L4: Total BMD is 0.877 g/cm2 T-score is -1.5 LEFT HIP: Total BMD is 0.844 g/cm2 T-score is -0.8 Femoral neck BMD is 0.644 g/cm2 T-score is -1.8 IMPRESSION: Based on the left femoral neck bone mineral density (T-score -1.8) the patient has low bone mass. Fracture risk assessment (FRAX): 10 year risk for a major osteoporotic fracture is 12 % 10 year risk for a hip fracture is 2.6 % The FRAX tool has not been validated in patients currently or previously treated with pharmacotherapy for osteoporosis. In such patients, clinical judgement must be exercised in interpreting FRAX scores as the fracturerisk may be overestimated. REFERENCE: Bone mineral density: Normal (T-score above or = -1.0) Low bone mass (T-score between -1.0 and -2.5) replaces thepreviously used term osteopenia Osteoporosis (T-score = or below -2.5) Medical evaluation for secondary causes of low bone mineral density may be appropriate. FRAX is a World Health Organization validated fracture risk assessmenttool that calculates a person's 10 year probability of a major osteoporosisrelated fracture and hip fracture. According to the National OsteoporosisFoundation guidelines, postmenopausal women and men age 50 or older with low bonemass and a 10 year probability of a major osteoporosis related fracture = or greater than 20% or a 10 year probability of a hip fracture = or greaterthan 3% should be considered for treatment. For further information, including treatment recommendations, please referto the 2013 ISCD Official Positions (http://www.iscd.org) and the NOF's Clinician's Guide to Prevention and Treatment of Osteoporosis (http://www.nof.org/professionals/clinical-guidelines) THIS IS AN ELECTRONICALLY VERIFIED FINAL REPORT 02/07/2021 8:45 AM - Electronically signed by Shalom Rowley M.D. T: Report ID: [id number] Reading Location: [id number] Result [facility] Pat Alexandre MD [facility] [place] Final Result * Hepatitis C antibody (12/22/2019 9:26 AM CDT) Pathologist [facility] Hep C Ab NONREACT NONREACTIVE [facility] Comment: Siemens RF nanoaurX using TANA (chemiluminescent immunoassay) technology. NONREACTIVE: Antibodies to Hepatitis C not detected. This does not exclude early acute Hepatitis C infection, possibility of exposure to Hepatitis C, antibodies below detection limit, or to lack of antibody reactivity to the antigen used in this assay. EQUIVOCAL: Antibodies to Hepatitis C may or may not be present. Sample to be confirmed by real-time PCR method. REACTIVE: Antibodies to Hepatitis C detected.Sample to be confirmed by real-time PCR method. Blood specimen (specimen) 12/22/2019 9:26 AM CDT 12/22/2019 10:40 AM CDT Narrative Resulting Agency Comment CLI Pat Alexandre MD LAB M ICROBIOLOGY - GENERAL ORDERABLES Final Result [address] [address], [facility] [phone] * COLONOSCOPY (01/25/2019) Colonoscopy Normal Historical Provider HEALTH MAINTENANCE Final Result from Last 3 Months or Most Recently Relevant to Health Maintenance Insurance MEDICARE SOLUTIONS MEDICARE SOLUTIONS [facility] MDCR HMO REF Advance Directives For more information, please contact: [phone] Documents on File Type Date Recorded Patient Mission Planner Expl anation ADVANCE DIRECTIVE 12/20/2019 ADVANCE DI RECTIVE ADVANCE DIRECTIVE 09/03/2016 12:00 AM RICHI R OF ACCOUNT COLLECTOR FINANCIAL/MEDICAL Care Teams Software Quality Test Engineer Relationship Specialty Start Date End Date No, Physician PCP - General 09/04/21
--- OUTSIDE RECORDS SUMMARY | 2024-08-09 14:31 | XMS_ITS | Encounter Summary ---
Author Organization [facility] Facility Care Team Providers Care Career Services Director Name Role Phone Pat Alexandre MD Primary Care Provider Paris BordenW Unavailable [phone] Ana Luisa Burton RN Unavailable [phone] No, Physician Primary Care Provider Encounter Details Date Type Department Care Team (Latest Contact Info) Description 06/23/2017 Orders Only [facility] CLINCONV Provider, MD Lindsay [address] [place] [id number] Social History Tobacco Use Types Packs/Day Years Used Date Smoking Tobacco: Former Comments Unknown Sex and Gender Information Value Date Recorded Sex Assigned at Not on file Legal Sex Female 12:56 AM SUPERVISOR COVERING AND LINING Gender Identity Female 01/30/2021 4:42 PM CDT Sexual Orientation Straight 01/30/2021 4: 41 PM CDT documented as of this encounter Plan of Treatment Not on file documented as of this encounter Procedures Procedure Name Priority Date/Time Associated Diagnosis Comments SCAN - LABS 06/24/2017 12:00 AM SUPERVISOR COVERING AND LINING documented in this encounter Results * SCAN - LABS (06/24/2017 12:00 AM SUPERVISOR COVERING AND LINING) Narrative 06/24/2017 12:00 AM SUPERVISOR COVERING AND LINING Ordered by an unspecified provider. Historical Provider [...] documented as of this encounter Care Teams Career Services Director Relationship Specialty Start Date End Date Pat Alexandre MD PCP - General Internal Medicine 09/23/18 07/16/21 No, Physician PCP - General 09/04/21 Paris Borden, WEDGER MACHINE [address] [place] [address] [address] [place], [place] [id number] Bartender Helper 04/23/21 05/22/21 Ana Luisa Burton, TEMITOPE [address] [place] [address] [address] [place] [address] Bartender Helper 05/23/21 05/30/21 documented as of this encounter
--- OUTSIDE RECORDS SUMMARY | 2024-08-09 14:31 | XMS_ITS ---
Author Organization [facility] Address [address] [facility] [address] [place] [address] Care Team Providers Care Surveyor Mine Name Role Phone Charity Eastman APN Primary Care Provider Regla Saravia Unavailable [phone] Jose D Laughlin Unavailable [phone] Social History Sex Assigned At : Social History Observation Description Sex Assigned At Female Encounters Encounter Location Date Provider Diagnosis [facility] [email or web address] [facility] [address] [facility] [address] [place] [address] 07/19/2024 Jose D Laughlin Plan Of Treatment No Information Progress Notes * JING WHITE WDOB:[birth year] (78 yo F)Acc No.[id number]:07/19/2024 Patient: CATIE BELLIDI Nighat :1945 A ge:78 Y S ex:Female Address:[facility] RAUL GARCES, [place] [address] [facility] [address] * true * Date: Generated for Printi ng/Faxing/eTransmitting on: 0 08/09/2024 02:31 PM CDT
--- OUTSIDE RECORDS SUMMARY | 2024-08-09 14:31 | XMS_ITS | Encounter Summary ---
Author Organization [facility] Address [address] [place] [address] Care Team Providers Care Coordinator Of Genetic Services Name Role Phone Charity Eastman NP Primary Care Provider + Agueda Delgado RN Unavailable [phone] Jose Alberto Gaines MD Unavailable [phone] Peña Garza MD Unavailable Boom Durant MD Unavailable [phone] Encounter Details Date Type Department Care Team (Late st Contact Info) Description 08/14/2022 MyChart Message Enc [facility] Medical Group Family and Sports Medicine - [place] [address] [place] [address] Charity Eastman, DOCUMENT MANAGER [address] [place] [address] My Diagnosis Social History Tobacco Use Types Packs/Day Years Used Date Smoking Tobacco: Former Cigarettes 0.5 50 1 969 - 2018 Smokeless Tobacco: Never Comments:Former smoker Alcohol Use Standard Drinks/Week Comments No 0 (1 standard drink = 0.6 oz [...] Date Recorded Patient Health Questionnaire-2 Score 6 08/15/2022 Hunger Vital Sign Answer Date Recorded Within [...] place to sleep or slept in a residential (including now)? No 08/16/2022 Comments No Sex and Gender Information Value Date Recorded Sex Assigned at Female 10/09/2022 2:03 PM CDT Legal Sex Female 7:57 PM CDT Gender Identity Female 10/09/2022 2:03 PM CDT Sexual Orientation Straight 10/09/2022 2: 03 PM CDT COVID-19 Exposure Response Date Recorded In the last 10 days, have yo u been in contact with someone who was confirmed or suspected to have Coronavirus/COVID-19? No / Unsure 08/15/2022 1:30 PM CDT documented as of this encounter [...] PM CDT Leigh Wall RN Active * Because of a physical, [...] Wall RN Active documented in this encounter Plan of Treatment Upcoming Encounters Date Type Department Care Team (Late st Contact Info) Description 08/11/2024 10:45 AM CDT Office Visit [facility] Physical Therapy [address] [place] [address] Charity Eastman, DOCUMENT MANAGER [address] [place] [address] Elizabeth Fernandez, PT [address] [place] [address] 08/12/2024 9:40 AM CDT Office Visit [facility] Medical Group Orthopedic & Sports Medicine - [place] [address] [place] [address] Dominik Lopez MD [address] [place] [address] 08/20/2024 12:15 PM CDT Office Visit [facility] n THREE [facility], [address] [address] Milton Rodriguez MD Three [facility], [address] [place] [id number] Marie Victor PA-C 3 [facility], [address] [phone] documented as of this encounter Visit Diagnoses Not on filedocumented in this encounter Additional Health Concerns Infection Onset Date Last Indicated Resolved Time COVID-19 Rule Out 05/05/2024 05/05/2024 05/05/2024 11:08 PM DENTAL ASSOCIATE COVID-19 Rule Out 06/21/2024 06/21/2024 06/21/2024 5:59 PM DENTAL ASSOCIATE documented as of this encounter Care Teams Coordinator Of Genetic Services Relationship Specialty Start Date End Date Charity Eastman DOCUMENT MANAGER [address] [place] [address] [phone] PCP - General Nurse Practitioner Family 08/16/21 Agueda Delgado, RN [address] [place], [place] [address] Staff Sonographer (Ambulatory) REGISTERED NURSE 08/16/22 01/17/23 Jose Alberto Gaines MD [address] [place] [address] ORTHOPAEDIC SURGERY 07/08/22 Peña Garza MD Three [facility]. [address] [place] [address] [phone] Referring Physician VASCULAR SURGERY 07/04/22 Boom Durant MD [address] [place] [address]. [place], [place] [address] UROLOGY 08/23/22 documented as of this encounter
--- OUTSIDE RECORDS SUMMARY | 2024-08-09 14:31 | XMS_ITS | Encounter Summary ---
Author Organization [facility] Care Team Providers Care Director Of Financial Reporting Name Role Phone Pat Alexandre MD Primary Care Provider Paris BordenW Unavailable [phone] Ana Luisa Burton RN Unavailable [phone] No, Physician Primary Care Provider [phone] Encounter Details Date Type Department Care Team (Latest Contact Info) Description 10/28/2017 Orders Only [facility] CLINCON[facility] ProviderLindsay MD [address] [place] [address] Social History Tobacco Use Types Packs/Day Years Used Date Smoking Tobacco: Former Comments Unknown Sex and Gender Information Value Date Recorded Sex Assigned at Not on file Legal 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 Historical Provider [...] documented as of this encounter Care Teams Director Of Financial Reporting Relationship Specialty Start Date End Date Pat Alexandre MD PCP - General Internal Medicine 09/23/18 07/16/21 No, Physician PCP - General 09/04/21 Paris Borden LCSW [address] [place] [address] [address] [place] [address] Portfolio Consultant 04/23/21 05/22/21 Ana Luisa Burton, TEMITOPE [address] [place] [address] [address] [place] [address] Portfolio Consultant 05/23/21 05/30/21 documented as of this encounter
--- OUTSIDE RECORDS SUMMARY | 2024-08-09 14:31 | XMS_ITS | Encounter Summary ---
Author Organization [facility] Address [address] [place] [address] Care Team Providers Care Hot Metal Charger Name Role Phone Charity Eastman NP Primary Care Provider [phone] Agueda Delgado RN Unavailable [phone] Jose Alberto Gaines MD Unavailable [phone] Peña Garza MD Unavailable Boom Durant MD Unavailable [phone] Encounter Details Date Type Department Care Team (Latest Contact Info) Description 02/05/2022 MyChart Message Enc [facility] Medical Group Multispecialty Care - [address] [phone] Dustin Muir MD [address] [place] [address] [address] [place], [place] [phone] Prep for appointment on Feb.14, Social History Tobacco Use Types Packs/Day Years Used Date Smoking Tobacco: Former Cigarettes 0.5 50 1 969 - 2018 Smokeless Tobacco: Never Alcohol Use Standard Drinks/Week Comments No 0 (1 standard drink = 0.6 oz pur e alcohol) AUDIT-C Answer Date Recorded Frequency of Alcohol Consumption Never 06/01/2018 Average Number of Drinks Not on file 019 Frequency of Binge Drinking Not on file 11/2018 Comments No Sex and Gender Information Value [...] suspected to have Coronavirus/COVID-19? No / Unsure 02/08/2022 12:30 PM CDT documented as of this encounter [...] Description 08/11/2024 10:45 AM CDT Office Visit [facility] Physical Therapy [address] [place], [place] [address] Charity Eastman, LIFTS AND CRANES INSPECTOR [address] [place] [address] Elizabeth Fernandez, PT 1 [place] [address] 08/12/2024 9:40 AM CDT Office Visit [facility] Medical Group Orthopedic & Sports Medicine - [address] [place] [address] Dominik Lopez MD [address] [place] [address] 08/20/2024 12:15 PM CDT Office Visit [facility] n THREE [facility], [address] [place], [place] [address] Milton Rodriguez MD Three [facility] [address] [place], [place] [address] Marie Victor PA-C 3 [facility], [address] [place], [place] [phone] documented as of this encounter Visit Diagnoses Not on filedocumented in this encounter Additional Health Concerns Infection Onset Date Last Indicated Resolved Time COVID-19 Rule Out 05/05/2024 05/05/2024 05/05/2024 11:08 PM DUPLIGRAPH OPERATOR COVID-19 Rule Out 06/21/2024 06/21/2024 06/21/2024 5:59 PM DUPLIGRAPH OPERATOR documented as of this encounter Care Teams Hot Metal Charger Relationship Specialty Start Date End Date Charity Eastman NP [address] [place] [address] PCP - General Nurse Practitioner Family 08/16/21 Agueda Delgado RN [address] [place] [address] Communication Specialist (Ambulatory) REGISTERED NURSE 08/16/22 01/17/23 Jose Alberto Gaines MD [address] [place], [place] [phone] ORTHOPAEDIC SURGERY 07/08/22 Peña Gazra MD Three [facility] [address] [place], [place] [phone] Referring Physician VASCULAR SURGERY 07/04/22 Boom Durant MD [address] [place], [place] [phone] UROLOGY 08/23/22 documented as of this encounter
--- OUTSIDE RECORDS SUMMARY | 2024-08-09 14:31 | XMS_ITS | Encounter Summary ---
Author Organization [facility] Care Team Providers Care Community Health Outreach Worker Name Role Phone Pat Alexandre MD Primary Care Provider Paris BordenW Unavailable [phone] Ana Luisa Burton RN Unavailable [phone] No, Physician Primary Care Provider [phone] Encounter Details Date Type Department Care Team (Latest Contact Info) Description 08/07/2017 Orders Only [facility] CLINCONV ProviderLindsay MD [address] [place] [address] Social History Tobacco Use Types Packs/Day Years Used Date Smoking Tobacco: Former Comments Unknown Sex and Gender Information Value Date Recorded Sex Assigned at Not on file 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 Historical Provider [facility] GUADALUPE Final Result documented in this encounter Visit Diagnoses Not on filedocumented in this encounter Additional Health Concerns Infection Onset Date Last Indicated Resolved Time COVID: Suspected 02/14/2020 02/14/2020 02/15/2020 6:26 PM CDT Respiratory Infection (JEANNINE), contact + droplet Comment:Automatically added due to negative COVID-19 result. 02/15/2020 02/15/2020 02/29/2020 3:0 6 AM CDT documented as of this encounter Care Teams Community Health Outreach Worker Relationship Specialty Start Date End Date Pat Alexandre MD PCP - General Internal Medicine 09/23/18 07/16/21 No, Physician PCP - General 09/04/21 Paris Borden LCSW [address] [place] [address] [address] [place], [place] [phone] Flake Or Shred Roll Operator 04/23/21 05/22/21 Ana Luisa Burton, RN [address] [place] [address] [address] [place] [address] Flake Or Shred Roll Operator 05/23/21 05/30/21 documented as of this encounter
--- OUTSIDE RECORDS SUMMARY | 2024-08-09 14:31 | XMS_ITS | Referral Summary ---
Author Organization [facility] Address [address] [place] [address] Care Team Providers Care Building Trades Teacher Name Role Phone No, Physician Primary Care Provider [phone] Allergies Active Allergy Reactions Criticality Noted Date [...] (04/26/2021): Added automatically from request for surgery [id number] Abnormal weight gain 05/17/2019 BMI 27.0-27.9,adult 05/17/2019 [...] PCV 13 01/07/2021, 019 ZOSTER Recombinant 01/07/2021 Social History Tobacco Use Types Packs/Day Years [...] place to sleep or slept in a senior living (including now)? 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 Gender Identity Female 01/30/2021 4:42 PM CDT Sexual Orientation Straight 01/30/2021 4: 41 PM CDT Last Filed Vital Signs Vital Sign Reading Time Taken Comments Blood Pressure 122/107 04/30/2021 6:30 PM RIG MECHANIC patient moving her arm Pulse 84 04/30/2021 6:40 PM RIG MECHANIC Temperature 37 C (98.6 F) 04/30/2021 6:40 PM RIG MECHANIC Respiratory Rate 11 04/30/2021 6:40 PM RIG MECHANIC Oxygen Saturation 95% 04/30/2021 6:4 0 PM RIG MECHANIC Inhaled Oxygen Concentration - - Weight 73.2 kg (161 lb 6 oz) 04/26/2021 3:20 PM RIG MECHANIC Height 162.6 cm (5' 4 ) 04/26/2021 3:20 PM RIG MECHANIC Body Mass Index 27.7 04/26/2021 3:20 PM RIG MECHANIC Plan of Treatment Not on file Medical Devices Implanted Type Area Motor Teacher Device Identifier Shelf Expiration Date Model / Serial / Lot [employer] [id number] Evos 152mm 12 Hole Compression Plate Bone Sterile 3.5mm Screw - [id number] Implanted:Qty: 1 on 04/30/2021 by Ophelia Del Valle MD at [facility] Plate Left: Humerus [employer] tho [id number] / / [employer] [id number] Evos 127mm 15 Hole Compression Plate Bone Sterile 2.7mm Screw - [id number] Implanted:Qty: 1 on 04/30/2021 by Ophelia Del Valle MD at [facility] Plate Left: Humerus [employer] [id number] / / [employer] [id number] 2.7mm 4.5mm 20mm Self Retaining Screwdriver Self Tap Flat Head - [id number] Implanted:Qty: 3 on 04/30/2021 by Ophelia Del Valle MD at [facility] Screw Left: Humerus [employer] [id number] / / [employer] [id number] 2.7mm 4.5mm 19mm Self Tap Cortex T8 2mm Screw Bone Evos - [id number] Implanted:Qty: 2 on 04/30/2021 by Ophelia Del Valle MD at [facility] Screw Left: Humerus [employer] [id number] / / [employer] [id number] Evos 2.7mm 4.5mm 18mm Self Tap Cortex T8 Screw Bone Nonsterile - [id number] Implanted:Qty: 1 on 04/30/2021 by Ophelia Del Valle MD at [facility] Screw Left: Humerus [employer] [id number] / / [employer] [id number] Evos 3.5mm 18mm Self Tap Cortex Screw Bone Sterile - [id number] Implanted:Qty: 5 on 04/30/2021 by Ophelia Del Valle MD at [facility] Screw Left: Humerus [employer] [id number] / / [employer] [id number] Evos 3.5mm 19mm Self Tap Cortex Screw Bone Sterile - [id number] Implanted:Qty: 1 on 04/30/2021 by Ophelia Del Valle MD at [facility] Screw Left: Humerus [employer] [id number] / / Procedures Procedure Name Priority Date/Time [...] age 40, based on guidelines of the [place] [employer] (ACR Practice Parameter for the Performance of Screening and Diagnostic Mammography) and [place] [employer]. For women [...] the Performance ofScreening and Diagnostic Mammography) and [place] [employer] of[employer]etric[employer]nec[employer]. For women with [...] old F with given history of screening. Motor Teacher/Model: Proximetry A (S/N [id number]) CLINICAL INFORMATION: Current height: 62.5 inches Maximum [...] by Shalom Rowley M.D. T: Report ID: [id number] Reading Location: [id number] Procedure Note Shalom Rowley MD - 02/07/2021 EXAM DESCRIPTION: DEXA AXIAL SKELETON BONE DENSITY 1 OR MORE SITES REASON FOR STUDY: 75 y/o year old F with given history ofscreening. Motor Teacher/Model: Proximetry A (S/N [id number]) CLINICAL INFORMATION: Current height: 62.5 inches Maximum [...] by Shalom Rowley M.D. T: Report ID: [id number] Reading Location: [place] [address] Pat Alexandre MD IMG DXA PROCE DURES Final Result * Hepatitis C antibody (12/22/2019 9:26 AM CDT) Hep C Ab NONREACT NONREACTIVE [facility] Comment: Siemens CentaurXP using TANA (chemiluminescent immunoassay) technology. NONREACTIVE: Antibodies [...] M ICROBIOLOGY - GENERAL ORDERABLES Final Result [address] [phone] * COLONOSCOPY (01/25/2019) Colonoscopy Normal Historical Provider HEALTH MAINTENANCE Final Result from Last 3 Months or Most Recently Relevant to Health Maintenance Insurance MEDIC[employer] [facility] MEDICARE Address: [address] [address] [place] [address] MEDICARE [employer] [facility] MEDICARE Address: [address] [address] [place] [address] [facility] MDCR HMO REF [facility] MEDICARE Address: [address] [address] [place] [address] Advance Directives For more information, please contact: [phone] Documents on File Type Date Recorded Patient Gas Meter Prover Expl anation ADVANCE DIRECTIVE 12/20/2019 ADVANCE DI RECTIVE ADVANCE DIRECTIVE 09/03/2016 12:00 AM RICHI R OF [employer]MEDICAL Care Teams Building Trades Teacher Relationship Specialty Start Date End Date No, Physician PCP - General 09/04/21
--- OUTSIDE RECORDS SUMMARY | 2024-08-09 14:31 | XMS_ITS ---
Author Organization [facility] [employer] Address [address] [facility] [address] [place] [address] Care Team Providers Care Firer Helper Name Role Phone Charity Eastman APN Primary Care Provider Regla Saravia Unavailable [phone] Jose D Laughlin Unavailable [phone] Allergies No Known Allergies REASON FOR VISIT Pt states I am not okay and not doing well , Depression screening positive, Elevated or Hypertensive blood pressure reading, MIPS diagnosis of HTN, FUNCTIONAL STATUS ASSESSMENT exclusion, [facility] suicide Risk and safety plan, MIPS diagnosis of HTN Medications Medication SIG (Take, Route, Frequency, Duration) Notes Start Date End Date Status ALPRAZolam 0.5 MG 0.5 tablet Oral once a day As needed Active Omeprazole 20 MG Oral Act marko Vitamin E Active Spravato (56 MG Dose) 28 MG/DEVICE 2 sprays in each nostril Nasally once for 1 days 03/16/2024 Not-Taking Aspirin EC Adult Low Dose 81 MG 1 tablet Orally Once a day Active Vitamin B-12 1000 MCG 2 tablet Orally On ce a day Active Fish Oil 1000 MG 1 capsule Orally Thr ee times a day Active Meclizine HCl 12.5 MG 1 tablet as needed Orally every 12 hrs Active Ondansetron 4 MG 1 tablet on the tong ue and allow to dissolve Orally Once a day Active Atenolol 50 MG 1 tablet Orally Once a day Active Sucralfate 1 GM/10ML 10 mL 1 hour before meals and at bedtime on an empty stomach Orally Four times a day Active Vitamin A 3 MG (72998 UT) 1 capsule with food or milk Orally Once a day Active Vitamin D3 50 MCG (2000 UT) 1 capsule Orally Once a day Active Venlafaxine HCl ER 75 MG 1 capsule with food Orally Once a day Active Venlafaxine HCl ER 150 MG 1 capsule with food Oral Once a day Active Social History Sex Assigned At : Social History Observation Description Sex Assigned At Female Vital Signs Blood pressure systolic 139 mm Hg 07/19/19 25 Blood pressure diastolic 107 mm Hg 025 Heart Rate 69 /min 07/19/2024 Weight 156.2 lbs 07/19/2024 Weight-kg 70.85 kg 07/19/2024 Height 63.00 in 07/19/2024 Height-cm 160.02 cm 07/19/2024 BMI 27.67 kg/m2 07/19/2024 Encounters Encounter Location Date Provider Diagnosis [facility] [place], [place] [address] [address] 07/19/2024 Jose D Laughlin RAMY (generalized anxiety disorder) F41.1 ; Severe episode of recurrent major depressive disorder, without psychotic features F33.2 and Benign essential HTN I10 Assessments Encounter Date Diagnosis (ICD Code) Assessment Notes Treatment Notes Treatment Clinical Notes Section Notes 07/19/2024 RAMY (generalized anxiety disorder) (ICD-10 - F41.1) 07/19/2024 Severe episode of recurrent major depressive disorder, without psychotic features (ICD-10 - F33.2) 07/19/2024 Benign essential HTN (ICD-10 - I10) 07/19/2024 Other 1. Depression and Anxiety - Resubmit Spravato treatment to insurance. - Schedule follow-up appointment with SHEREE Cohen - Place patient on waiting list for a therapist at [facility] [employer]. - Continue current medications - encouraged continued [...] week. - Reinforce crisis prevention hotline number (125) and crisis intervention plan. - Monitor for [...] Provide support and resources for smoking cessation. Plan Of Treatment Medication Medication Name Sig Start Date Stop Date Notes ALPRAZolam 0.5 MG 0.5 tablet Oral once a day Venlafaxine HCl ER 75 MG 1 capsule with food Orally Once a day Venlafaxine HCl ER 150 MG 1 capsule with food Oral Once a day Next Appt Details Follow Up: 3 Weeks, Reason: Progress Notes * JING WHITE WDOB:[birth year] (78 yo F)Acc No.[id number]:07/19/2024 Patient: JING BELL W Provider: SHEREE Kwon :1945 A ge:78 Y S ex:Female Date:07/19/2024 Address:[address] [place] [address], [facility] Pcp:Charity Eastman APN Subjective: * Chief Complaints: * P t states I am not okay and not doing well Depression screening positiveElevated or Hypertensive blood pressure readingMIPS diagnosis of HTNFUNCTIONAL STATUS ASSESSMENT exclusionMIPS suicide Risk and safety planMIPS diagnosis of HTN * HPI: D epression Screening: The note is transcribed using speech recognition software. It is a reflection of a visit with the patient. It might have some inaccuracy, including medication names and transcribing errors, though efforts have been made to correct them. HPI: The patient was recently hospitalized due to a left wrist fracture after a fall. She is currently undergoing occupational and physical therapy for this injury. The patient reports significant sleep disturbances since her hospitalization, frequently waking up at 3 AM and sometimes experiencing complete insomnia. She occasionally takes Xanax to help with sleep. The patient discloses experiencing suicidal thoughts once or twice recently, with the most recent occurrence being a week ago, but she dismissed these thoughts as 'stupid' and denies any current plan or intent. The patient is experiencing financial stress due to issues with her [employer] business. She expresses dissatisfaction with her current therapist and is seeking a different therapist. She noted enjoying her hospital stay as a break from stress. Sleep: The patient reports significant sleep disturbances since her hospitalization, frequently waking up at 3 AM and sometimes experiencing complete insomnia, staying awake for up to 4 days at a time. RAMY-7 (2018 Edition) F eeling nervous, anxious, or on edge N early every day N ot being able to stop or control worrying?More than half the days W orrying too much about different things M ore than hafl the days T rouble relaxing N ot at all B eing so restless that it is hard to sit still S ever B ecoming easily annoyed or irritable N ot at all F eeling afraid as if something awful might happen N ot at all T otal RAMY-7 Score 8 I nterpretation of Total ( 5 to 9) Mild D epression screening: PHQ-9 L ittle interest or pleasure in doing things?More than half the days F eeling down, depressed, or hopeless S T rouble falling or staying asleep, or sleeping too much N early every day F eeling tired or having little energy N early every day P oor appetite or overeating N early every day F eeling bad about yourself or that you are a failure, or have let yourself or your family down N early every day T rouble concentrating on things, such as reading the newspaper or watching television S M oving or speaking so slowly that other people could have noticed; or the opposite, being so fidgety or restless that you have been moving around a lot more than usual N early every day T houghts that you would be better off or of hurting yourself in some way S (Consider Suicide Assessment Risk) T otal Score 2 0 I nterpretation S e Depression Intervention D epression Screening Findings P ositve F ollow-Up for Depression M ental health treatment assessment,Patient follow-up to return when and if necessary,Completion of mental health crisis plan S uicide Risk Assessment Performed 0 07/19/2024 A dditional Evaluation for Depression P sychiatric interview and evaluation N deven of the standardized tool used for adult depression screening: P atient Health Questionnaire (PHQ-9) F unctional Status: Documentation of advanced stage dementia and caregiver knowledge is limited. Outcome Assessment F indings: N ot documented, patient is severely impaired and caregiver knowledge is limited S uicide Safety Plan: Suicide Safety Plan S tep 1: Warning Signs Y es S tep 2: Internal Coping Strategies Y es S tep 3: Social Contacts Who May Distract from the Crisis Y es R emember, in this step, the goal is distraction from suicidal thoughts and feelings. Y es S tep 4 Professionals and Agencies to Contact for Help Y es 9 93 Suicide and Crisis Lifeline Y es T ext HOME to 219171 [facility], Suicide & Crisis Hotline 9-074-642-HOPE(5864) Y es N [facility] Suicide Prevention Lifeline 7897-597-RZEU (1328) Y es S tep 5: Making the Environment Safe Y es * ROS: P erformance Met: N ormal blood pressure reading documented, follow-up not required ( G8783)Patient not eligible due to active diagnosis of hypertension: G 9744 Patient not eligible due to active diagnosis of hypertension: G 9744. * Medical History: * Surgical History: B reast surgery (70882) 08/24/1968Other 10/24/1976nerve stimulator * Hospitalization/Major Diagno stic Procedure: * Family History: F ather: depression, anxiety. 1 son(s) , 1 daughter(s) . . * Social History: M igrated Social History: M igrated Social History: Alcohol Intake: None 10/01/2023,Tobacco Years: Former smoker 10/01/2023. * Medications: T akingVitamin D3 50 MCG (2000 UT) Capsule 1 capsule Orally Once a day Vitamin A 3 MG (62436 UT) Capsule 1 capsule with food or milk Orally Once a day Sucralfate 1 GM/10ML Suspension 10 mL 1 hour before meals and at bedtime on an empty stomach Orally Four times a day Ondansetron 4 MG Tablet Disintegrating 1 tablet on the tongue and allow to dissolve Orally Once a day Meclizine HCl 12.5 MG Tablet 1 tablet as needed Orally every 12 hrs Fish Oil 1000 MG Capsule 1 capsule Orally Three times a day Vitamin B-12 1000 MCG Tablet 2 tablet Orally Once a day Atenolol 50 MG Tablet 1 tablet Orally Once a day Aspirin EC Adult Low Dose 81 MG Tablet Delayed Release 1 tablet Orally Once a day Vitamin E ALPRAZolam 0.5 MG Tablet Disintegrating 0.5 tablet Oral once a day As neededOmeprazole 20 MG Capsule Delayed Release Oral Venlafaxine HCl ER 150 MG Capsule Extended Release 24 Hour 1 capsule with food Oral Once a day Venlafaxine HCl ER 75 MG Capsule Extended Release 24 Hour 1 capsule with food Orally Once a day Taking Vitamin D3 50 MCG (2000 UT) Capsule 1 capsule Orally Once a day Taking Vitamin A 3 MG (10952 UT) Capsule 1 capsule with food or milk Orally Once a day Taking Sucralfate 1 GM/10ML Suspension 10 mL 1 hour before meals and at bedtime on an empty stomach Orally Four times a day Taking Ondansetron 4 MG Tablet Disintegrating 1 tablet on the tongue and allow to dissolve Orally Once a day Taking Meclizine HCl 12.5 MG Tablet 1 tablet as needed Orally every 12 hrs Taking Fish Oil 1000 MG Capsule 1 capsule Orally Three times a day Taking Vitamin B-12 1000 MCG Tablet 2 tablet Orally Once a day Taking Atenolol 50 MG Tablet 1 tablet Orally Once a day Taking Aspirin EC Adult Low Dose 81 MG Tablet Delayed Release 1 tablet Orally Once a day Taking Vitamin E Taking ALPRAZolam 0.5 MG Tablet Disintegrating 0.5 tablet Oral once a day As neededTaking Omeprazole 20 MG Capsule Delayed Release Oral Taking Venlafaxine HCl ER 150 MG Capsule Extended Release 24 Hour 1 capsule with food Oral Once a day Taking Venlafaxine HCl ER 75 MG Capsule Extended Release 24 Hour 1 capsule with food Orally Once a day Not-TakingSpravato (56 MG Dose) 28 MG/DEVICE Solution Therapy Pack 2 sprays in each nostril Nasally once Medication List reviewed and reconciled with the patientNot-Taking Spravato (56 MG Dose) 28 MG/DEVICE Solution Therapy Pack 2 sprays in each nostril Nasally once Medication List reviewed and reconciled with the patient * Allergies: N .K.D.A.no[Allergies Verified] Objective: * Vitals: B P:139/107mm Hg, HR:69/min, Wt:156.2lbs, Wt-k.85 kg, Ht: 63.00 in, Ht-cm: 160.02 cm, BMI:27.67Index, Body Surface Area: 1.77. * Examination: P sychiatry: Dementia S afety concern screening for dangerousness to self and environment risks provided: N o Suicidal ideation: d enied current SI at time of assessment. reported SI last week without plan or intent.. N eurology: Cognition A SSESSMENT: P sychologic cognitive testing and assessment Cognition Assessment Tools Used T otal score SLUMS 2 7 N eurological: Dementia S afety concern screening for dangerousness to self and environment risks provided: Nhan Foster afety concern mitigation recommendation provided: Nhan Larios opics discussed for environmental risks:?Home safety risks that could arise from cooking or smoking G eneral Examination: Psych: a lert and oriented x 3, cognitive function intact, cooperative with exam, maintains good eye contact, with good judgement and insight, normal affect / mood, with no auditory or visual hallucinations, speech is clear and coherent, thought process is logical and goal directed without suidical ideation or delusions. M ental Status Examination: The patient is alert and oriented to time, place, and person. Performed well on cognitive tests, including serial 7s and recall of objects. Mood appears depressed; the patient reports feeling 'down.' No evidence of hallucinations, delusions, or overt psychosis. Denies current thoughts of suicide or self-harm; however, reported a suicidal thought last week without intent or plan. SLUMS score is 27 Diagnostic Test Results and Labs: SLUMS: 27 RAMY-7: 8 PHQ-9: 20 Social and Financial Concerns: The patient is experiencing financial stress due to issues with [employer] listings. Assessment: * Assessment: 1. S evere episode of recurrent major depressive disorder, without psychotic features - F33.2 (Primary) 2 . G AD (generalized anxiety disorder) - F41.1 3 .?Benign essential HTN - I10 Plan: * Treatment: 2. G AD (generalized anxiety disorder) Continue ALPRAZolam Tablet Disintegrating, 0.5 MG, 0.5 tablet, Oral, once a day As needed. ? 3. O thers Clinical Notes: 1. Depression and Anxiety - Resubmit Spravato treatment to insurance. - Schedule follow-up appointment with SHEREE Cohen - Place patient on waiting list for a therapist at [facility]. - Continue current medications - encouraged continued [...] week. - Reinforce crisis prevention hotline number (988) and crisis intervention plan. - Monitor for [...] Provide support and resources for smoking cessation. * Procedure Codes: 9 6127 BEHAV ASSMT W/SCORE & DOCD/STAND [id number] Pt not elis d/t act dig [id number] Pt not elis d/t act dig [id number] Doc med rsn no funct [id number] No funct stat perf, rsn [id number] CLIN DEPRESSION SCREEN DOC * Preventive Medicine: Counseling: B P Management: PRE-HYPERTENSIVE FOLLOW-UP PLAN: F ollow-up 2-3 months LIFESTYLE RECOMMENDATION: Analilia klein education REFERRAL TO ALTERNATIVE / PRIMARY CARE PROVIDER: Robinson calvo to general physician S afety: Discussed the risk and benefits of medication(s)? Y es fall risk / avoidance: Y es S moking: Patient counselled on the dangers of tobacco use and urged to quit. 0 07/19/2024 Screenings: F all risk screening Fall Risk Assessment: O ne fall with injury in the past year D epression screening Have you had a recent depression screening? Y es Date of depression screenin 07/19/2024 * Follow Up: 3 Weeks * Billing Information: * Visit Code: 70456 OFFICE OUTPATIENT VISIT 25 MINUTES DETAILED HISTORY AND EXAM/MODERATE MEDICAL DECISION MAKING. * Procedure Codes: 97705 BEHAV ASSMT W/SCORE & DOCD/STAND INSTRUMENT. G9744 Pt not elis d/t act dig htn. G9744 Pt not elis d/t act dig htn. G9917 Doc med rsn no funct status. G9918 No funct stat perf, rsn nos. [id number] CLIN DEPRESSION SCREEN DOC. * FEEDER Sign off status: Completed true * Provider: HAWK KwonHNP Date: 0 07/19/2024 Generated for Ventura bocanegra/Ryan/eTransmitting on: 0 08/09/2024 02:30 PM CDT History and Physical Notes * HPI (History of Present Illness) Category Sub-Category Detail Notes Category Not es Depression screening PHQ-9 Little inte rest or pleasure in doing things: More than half the days Feeling down, depressed, or hopeless: Se veral days Trouble falling or staying asleep, or sl eeping too much: Nearly every day Feeling tired or having little energy: N early every day Poor appetite or overeating: Nearly ever y day Feeling bad about yourself o r that you are a failure, or have let yourself or your family down: Nearly every day Trouble concentrating on thi ngs, such as reading the newspaper or watching television: Several days Moving or speaking so slowly that other people could have noticed; or the opposite, being so fidgety or restless that you have been moving around a lot more than usual: Nearly every day Thoughts that you would be b yang off or of hurting yourself in some way: Several days (Consider Suicide Assessment Risk) Total Score: 20 Interpretation: Severe Depression Intervention Depression Screening Findings: P ositve Follow-Up for Depression: [facility] treatment assessment,Patient follow-up to return when and if necessary,Completion of mental health crisis plan Suicide Risk Assessment Performed: 07/19 Additional Evaluation for Depression: Ps ychiatric interview and evaluation Name of the standardized too l used for adult depression screening:: Patient Health Questionnaire (PHQ-9) Functional Status Outcome Assessment Findings:: Not documented, patient is severely impaired and caregiver knowledge is limited Depression Screening RAMY-7 (2018 Edition) Feelin g nervous, anxious, or on edge: Nearly every day Not being able to stop or control worryi ng: More than half the days Worrying too much about different things : More than hafl the days Trouble relaxing: Not at all Being so restless that it is hard to sit still: Several days Becoming easily annoyed or irritable: No t at all Feeling afraid as if something awful isaías ht happen: Not at all Total RAMY-7 Score: 8 Interpretation of Total: (5 to 9) Mild Suicide Safety Plan Suicide Safety Plan Step 1: Warning Si gns: Yes Step 2: Internal Coping Strategies: Yes Step 3: Social Contacts Who May Distract from the Crisis: Yes Remember, in this step, the goal is distraction from suicidal thoughts and feelings.: Yes Step 4 Professionals and Agencies to Con tact for Help: Yes 986 Suicide and Crisis Lifeline: Yes Text HOME to 127275: Yes [employer] [facility], Suicide & Crisis Hotline 2-055-325-HOPE(1043): Yes [employer] Suicide Prevention Lifeline 4852-705-GYEU (9998): Yes Step 5: Making the Environment Safe: Yes Examination Category Sub-Category Detail Notes Category Not es Neurology Cognition ASSESSMENT:: Psy chologic cognitive testing and assessment Cognition Assessment Tools Used Total score SLUM S: 27 Psychiatry Suicidal ideation: denied curren t SI at time of assessment. reported SI last week without plan or intent. Dementia Safety concern scree alvin for dangerousness to self and environment risks provided:: No General Examination Psych: alert and or iented x 3, cognitive function intact, cooperative with exam, maintains good eye contact, with good judgement and insight, normal affect / mood, with no auditory or visual hallucinations, speech is clear and coherent, thought process is logical and goal directed without suidical ideation or delusions Mental Status Examination: The patient is alert and oriented to time, place, and person. Performed well on cognitive tests, including serial 7s and recall of objects. Mood appears depressed; the patient reports feeling 'down.' No evidence of hallucinations, delusions, or overt psychosis. Denies current thoughts of suicide or self-harm; however, reported a suicidal thought last week without intent or plan. SLUMS score is 27 Diagnostic Test Results and Labs: SLUMS: 27 RAMY-7: 8 PHQ-9: 20 Social and Financial Concerns: The patient is experiencing financial stress due to issues with [employer] listings. Neurological Dementia Safety concern s creening for dangerousness to self and environment risks provided:: Yes Safety concern mitigation recommendation provided:: Yes Topics discussed for environmental risks:: Home safety risks that could arise from cooking or smoking
--- OUTSIDE RECORDS SUMMARY | 2024-08-09 14:31 | XMS_ITS | Encounter Summary ---
Author Organization [facility] Health Address [address] [place] [address] Care Team Providers Care Community Service Specialist Name Role Phone Elana Echols MD Primary Care Provider Charity Eastman APRN-CHIEF DESIGN BRANCH Primary Care Provider [phone] Encounter Details Date Type Department Care Team (Late st Contact Info) Description 10/29/2017 Lab Requisition [facility] Care DermPath Lab [address] [place] [address] Elana Echols MD [address] [place] [address] Social History Tobacco Use Types Packs/Day Years Used Date Smoking Tobacco: Never Assessed Sex and Gender Information Value Date Recorded Sex Assigned at Not on file Gender Identity Not on file Sexual Orientation Not on file documented as of this encounter Plan of Treatment Not on file documented as of this encounter Procedures Procedure Name Priority Date/Time Associated Diagnosis Comments DERMATOPATHOLOGY Routine 10/28/2017 12:0 0 AM CDT documented in this encounter Results * DERMATOPATHOLOGY (10/28/2017 12:00 AM CDT) Case Report Dermatopathology Report Case: [id number] Authorizing Provider: Elana Echols MD Collected: 10/28/2017 12:00 AM Pathologist: Sandra Agarwal MD Received: 10/29/2017 06:18 AM Specimens: A) - Skin, left shoulder B) - Skin, back 5:44 PM T DERMATOPATHOLOGY LABORATORY Final Diagnosis Specimen A. 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 The specimen consists of a shave biopsy measuring [id number] mm. Jar 0. Specimen B: Received is [...] present in the keratinocytes composing this tumor. 5:44 PM CDT DERMATOPATHOLOGY LABORATORY Disclaimer An external and internal positive and negative controls are appropriate for the histochemical, immunohistochemical and immunofluorescence stain(s) in this case (if any), except where stated explicitly. The performance characteristics of the stain(s) cited in this report were developed and its performance characteristic determined by the Dermatopathology Laboratory at [facility]. These tests need not be, and therefore are not, approved by the [place] Food and Drug Administration. The tests are used for clinical purposes. Billing Codes Specimen Charges Stain Charges 90662 92315 1 1 5:44 PM CDT DERMATOPATHOLOGY LABORATORY Embedded Images 8 5:44 PM CDT DERMATOPATHOLOGY LABORATORY Pathology/Cytology TISSUE SPECIMEN FROM SKIN / Unknown 10/28/2017 10/29/2017 6:18 AM CDT Miscellaneous samples (specimen) TISSUE SPECIMEN FROM SKIN / Unknown 10/28/2017 10/29/2017 6:18 AM CDT Elana Echols MD LAB - PATHOLOGY/CYTO LOGY ORDERABLES DERMATOPATHOLOGY LABORATORY [facility] - Department of Dermatology [address] [facility] Lab B [address] [phone] documented in this encounter Visit Diagnoses Not on filedocumented in this encounter Care Teams Community Service Specialist Relationship Specialty Start Date End Date Elana Echols MD [address] [place] [address] PCP - General 10/19/19 05/27/22 Charity Eastman, NURSERYMAN ASSISTANT-CHIEF DESIGN BRANCH [address] [place] [id number] PCP - General 05/28/22 documented as of this encounter
--- OUTSIDE RECORDS SUMMARY | 2024-08-09 14:31 | XMS_ITS | Referral Summary ---
Author Organization [facility] Address [address] [place] [address] Care Team Providers Care Smocker Name Role Phone Charity Eastman OUTPATIENT PHYSICAL THERAPIST ASSISTANT-ARMOR OFFICER Primary Care Provider [phone] Source Comments [facility],non-owned Affiliates and Associated Physician Practices is amultiple site organization consisting of ambulatory clinics and hospital sitesin [place], [place], [place] and [place]. This disclosure is being madepursuant to the Care Everywhere program and may not contain all information available regarding this patient. Last updated 18.[facility] Allergies Active Allergy Reactions Criticality Noted Date [...] Mass Index - - Plan of Treatment Not on file Care Teams Smocker Relationship Specialty Start Date End Date Charity Eastman, OUTPATIENT PHYSICAL THERAPIST ASSISTANT-ARMOR OFFICER [address] [place] [id number] PCP - General 05/28/22
== END 2024-08-09 11:56 | disposition home or self-care (01) ==
PROVIDERS: PCP Nurse Practitioner Family; Visit Provider Physician Assistant Medical
DX: T85.9XXA Unspecified complication of internal prosthetic device, implant and graft, initial encounter (principal)
CPT/HCPCS: 72220